=== PATIENT | female | born 2000 | race Asian ===

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

== ENCOUNTER 2018-07-22 21:36 | Emergency (ER) | payer OTHER ==
[2018-07-22] MEDS ORDERED: ONDANSETRON 4 MG/2 ML VIAL IVP STA (22:15)
[2018-07-22] MEDS ORDERED: SODIUM CHLORIDE 0.9% 1,000 ML IV STA (22:15)
--- NOTE | 2018-07-22 22:20 | ED Physician Documentation ---
PD HPI NVD - Stated complaint Stated Complaint: [id number] - Chief complaint Chief Complaint: Abd Pain - History obtained from History obtained from: Patient, Family - History of Present Illness Timing - onset: How many days ago (2) Timing - duration: Days (2) Timing - details: Gradual onset Pain level max: 4 Pain level now: 3 Associated symptoms: Abdominal pain (crampy, diffuse). No: Fever, Chest pain, Hematemesis, Melena, Hematochezia, Dizzy, Weight loss, Dysuria, Hematuria, Vaginal bleeding, Vaginal dc, Testicular pain Contributing factors: Other (on lithium). No: Sick contact, Bad food, Travel, Recent antibiotics, Alcohol use, Anticoagulated, Diabetes Improved by: Vomiting Worsened by: Eating Similar symptoms before: Has not had sx before Recently seen: Not recently seen Review of Systems Ten Systems: 10 systems reviewed and negative Constitutional: denies: Fever, Chills Ears: denies: Ear pain Nose: denies: Rhinorrhea / runny nose, Congestion Cardiac: denies: Chest pain / pressure, Palpitations GI: reports: Vomiting. 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 : None HEENT: None Psych: Anxiety, Bipolar disorder Musculoskeletal: None Derm: None - Past Surgical History Past Surgical History: No - Present Medications Home Medications: Ambulatory Orders Medication Instructions Recorded Confirmed SUMAtriptan [Imitrex] 25 mg PO BID PRN #10 tablet 03/21/15 09/17/15 Ibuprofen 400 mg PO TID #20 tablet 09/17/15 Loratadine [Claritin] 10 mg PO DAILY 09/17/15 09/17/15 Norgestimate-Ethinyl Estradiol 1 tab PO DAILY 09/17/15 09/17/15 [Ortho Tri-Cyclen 28 Tablet] raNITIdine [Zantac] 150 mg PO 09/17/15 Ondansetron Odt [Zofran] 4 mg TL Q6H PRN #10 tablet 07/23/18 - Allergies Allergies/Adverse Reactions: Allergies Allergy/AdvReac Type Severity Reaction Status Date / Time No Known Drug Allergies Allergy Verified 07/22/18 21:44 - Social History Does the pt smoke?: Yes Smoking Status: Current every day smoker Does the pt drink ETOH?: No Does the pt have substance abuse?: No - Immunizations Immunizations are current?: Yes - POLST Patient has POLST: No PD ED PE NORMAL - Vitals Vital signs reviewed: Yes - General General: Alert and oriented X 3, No acute distress, Well developed/nourished - HEENT HEENT: PERRL, Moist mucous membranes - Neck Neck: Supple, no meningeal sign - Cardiac Cardiac: RRR, Strong equal pulses - Respiratory Respiratory: No respiratory distress, Clear bilaterally - Abdomen Abdomen: Normal bowel sounds, Soft, Non tender, Non distended - Back Back: No CVA TTP, No spinal TTP - Derm Derm: Warm and dry - Extremities Extremities: No edema - Neuro Neuro: Alert and oriented X 3 - Psych Psych: Normal mood, Normal affect Results - Vitals Vitals: Vital Signs - 24 hr 07/22/18 07/22/18 07/23/18 21:42 23:10 01:00 Temperature 36.7 C 36.4 C L Heart Rate 98 85 79 Respiratory 18 16 17 Rate Blood Pressure 126/87 H 114/74 O2 Saturation 98 100 100 Oxygen O2 Source Room air - Labs Labs: Laboratory Tests 07/22/18 07/22/18 07/22/18 22:30 22:30 22:30 WBC 7.4 RBC 4.14 L Hgb 12.5 Hct 36.1 L MCV 87.3 MCH 30.3 MCHC 34.7 RDW 14.0 Plt Count 345 MPV 7.1 L Neut # (Auto) 4.9 Lymph # (Auto) 1.9 [place] # (Auto) 0.4 Eos # (Auto) 0.1 Baso # (Auto) 0.1 Absolute Nucleated RBC 0.00 Nucleated RBC % 0.0 Sodium 135 Potassium 4.0 Chloride 98 L Carbon Dioxide 28 Anion Gap 9.0 BUN 16 Creatinine 0.6 Estimated GFR (MDRD) 127 Glucose 89 Calcium 9.8 Total Bilirubin 0.9 AST 27 ALT 22 Alkaline Phosphatase 63 Total Protein 8.4 H Albumin 4.7 Globulin 3.7 Albumin/Globulin Ratio 1.3 Lipase 27 HCG, Quant < 0.60 Urine Color Urine Clarity Urine pH Ur Specific [place] Urine Protein Urine Glucose (UA) Urine Ketones Urine Occult Blood Urine Nitrite Urine Bilirubin Urine Urobilinogen Ur Leukocyte Esterase Ur Microscopic Review Urine Culture Comments Last Dose Date Last Dose Time [place] 07/22/18 07/22/18 22:44 23:55 WBC RBC Hgb Hct MCV MCH MCHC RDW Plt Count MPV Neut # (Auto) Lymph # (Auto) [place] # (Auto) Eos # (Auto) Baso # (Auto) Absolute Nucleated RBC Nucleated RBC % Sodium Potassium Chloride Carbon Dioxide Anion Gap BUN Creatinine Estimated GFR (MDRD) Glucose Calcium Total Bilirubin AST ALT Alkaline Phosphatase Total Protein Albumin Globulin Albumin/Globulin Ratio Lipase HCG, Quant Urine Color YELLOW Urine Clarity CLEAR Urine pH 6.0 Ur Specific [place] >=1.030 H Urine Protein NEGATIVE Urine Glucose (UA) NEGATIVE Urine Ketones 40 H Urine Occult Blood NEGATIVE Urine Nitrite NEGATIVE Urine Bilirubin NEGATIVE Urine Urobilinogen 0.2 (NORMAL) Ur Leukocyte Esterase NEGATIVE Ur Microscopic Review NOT INDICATED Urine Culture Comments NOT INDICATED Last Dose Date UNKNOWN Last Dose Time UNKNOWN [place] 0.09 PD MEDICAL DECISION MAKING - ED course Complexity details: reviewed results, re-evaluated patient, considered dif ferential, d/w patient ED course: Patient is very well-appearing, nontoxic. Vomiting resolved with Zofran. States that she feels "1000% better". Tolerating p.o. without difficulty. Unclear etiology. Will follow up with her doctor for further evaluation and care. Abdomen is soft, nontender nondistended on serial exam. Patient counseled regarding signs and symptoms for which I believe and urgent re- evaluation would be necessary. Patient with good understanding of and agreement to plan and is comfortable going home at this time This document was made in part using voice recognition software. While efforts are made to proofread this document, sound alike and grammatical errors may occur. Departure - Departure Disposition: 01 Home, Self Care Clinical Impression: Vomiting Qualifiers: Vomiting type: unspecified Vomiting Intractability: non-intractable Nausea presence: with nausea Qualified Code(s): R11.2 - Nausea with vomiting, unspecified Condition: Good Instructions: ED Nausea Vomiting Follow-Up: Kathy Mendez MD [Primary Care Provider] - Within 1 week Prescriptions: Ondansetron Odt [Zofran] 4 mg TL Q6H PRN #10 tablet PRN Reason: Nausea / Vomiting Comments: Drink plenty of fluids and rest. This should improve over the next few days. Follow-up with your doctor for further evaluation and care. You have no significant lab abnormalities at this time Discharge Date/Time: 07/23/18 00:50
[2018-07-22 22:46] LABS: BASOPHILS # (AUTO) 0.1 10^3/uL (0.0-0.1); BASOPHILS % (AUTO) 0.9 %; EOSINOPHILS # (AUTO) 0.1 10^3/uL (0.0-0.7); HGB - HEMOGLOBIN 12.5 g/dL (12.0-16.0); LYMPHOCYTES # (AUTO) 1.9 10^3/uL (1.5-3.5); MEAN CORPUSCULAR HEMOGLOBIN 30.3 pg (27.0-31.0); MEAN CORPUSCULAR HGB CONC 34.7 g/dL (32.0-36.0); MEAN CORPUSCULAR VOLUME 87.3 fL (81.0-99.0); MEAN PLATELET VOLUME 7.1 fL (7.9-10.8); MONOCYTES # (AUTO) 0.4 10^3/uL (0.0-1.0); MONOCYTES % (AUTO) 5.7 %; NEUTROPHILS # (AUTO) 4.9 10^3/uL (1.5-6.6); NEUTROPHILS % (AUTO) 66.4 %; PLT - PLATELET COUNT 345 10^3/uL (130-450); RED BLOOD COUNT 4.14 10^6/uL (4.20-5.40); WHITE BLOOD COUNT 7.4 x10^3/uL (4.8-10.8)
[2018-07-22 23:10] LABS: ALBUMIN 4.7 g/dL (3.2-5.5); ALBUMIN/GLOBULIN RATIO 1.3 (1.0-2.2); BILIRUBIN,TOTAL 0.9 mg/dL (0.2-1.0); CALCIUM 9.8 mg/dL (8.5-10.3); CREATININE 0.6 mg/dL (0.4-1.0); TOTAL PROTEIN 8.4 g/dL (6.7-8.2)
[2018-07-22 23:11] VITALS: BP 114/74
[2018-07-22 23:21] LABS: LITHIUM 0.09 mmol/L
[2018-07-23 00:16] LABS: BILIRUBIN,URINE NEGATIVE (NEGATIVE); GLUCOSE, URINE (UA) NEGATIVE (NEGATIVE); KETONES,URINE (UA) 40 mg/dL (NEGATIVE); LEUKOCYTE ESTERASE, URINE NEGATIVE (NEGATIVE); NITRITE,URINE NEGATIVE (NEGATIVE); OCCULT BLOOD,URINE NEGATIVE (NEGATIVE); PROTEIN,URINE NEGATIVE (NEGATIVE); UROBILINOGEN,URINE 0.2 (NORMAL) E.U./dL (NORMAL)
[2018-07-23 00:20] LABS: CLARITY,URINE CLEAR (CLEAR)
== END 2018-07-23 00:50 | disposition home or self-care (01) ==
LOC: ED 21:36
DX: R11.2 Nausea with vomiting, unspecified (principal); F17.200 Nicotine dependence, unspecified, uncomplicated
CPT/HCPCS: 36415; 80053; 80178; 81001; 81003; 81025; 83690; 84702; 84703; 85025; 87086; 96361; 96374; 99283; 99284

== ENCOUNTER 2018-09-15 11:19 | Emergency (ER) | payer OTHER ==
--- NOTE | 2018-09-15 12:04 | ED Physician Documentation ---
PD HPI NVD - Stated complaint Stated Complaint: VOMITING - Chief complaint Chief Complaint: Abd Pain - History obtained from History obtained from: Patient, Family - History of Present Illness Timing - onset: How many weeks ago (1) Timing - duration: Weeks (1) Timing - details: Gradual onset, Still present, Waxing and waning Associated symptoms: No: Fever, Abdominal pain Contributing factors: No: Sick contact, Bad food, Recent antibiotics Improved by: Vomiting Similar symptoms before: No diagnosis Recently seen: Not recently seen - Additonal information Additional information: 18-year-old female has developed nausea and vomiting over the past week and she has run out of her Zofran that she had from the prior visit to the emergency department. She has had an episode of this similar in June at that time she was treated in the emergency department with some IV hydration and Zofran. She states the Zofran has helped somewhat with nausea but has not been totally effective. She denies use of cannabis. The patient's mother indicates that she has had repeated episodes of vomiting in a cyclical fashion. Review of Systems Constitutional: denies: Fever Eyes: denies: Decreased vision Ears: denies: Ear pain Nose: denies: Congestion Throat: denies: Sore throat Cardiac: denies: Chest pain / pressure, Palpitations Respiratory: denies: Dyspnea, Cough GI: reports: Nausea, Vomiting. 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 : None HEENT: None Psych: Anxiety, Bipolar disorder Musculoskeletal: None Derm: None - Past Surgical History Past Surgical History: No - Present Medications Home Medications: Ambulatory Orders Medication Instructions Recorded Confirmed Promethazine [Phenergan] 25 mg PO Q6H PRN #10 tab 09/15/18 QUEtiapine [SEROquel] 25 mg PO QPM 09/15/18 09/15/18 - Allergies Allergies/Adverse Reactions: Allergies Allergy/AdvReac Type Severity Reaction Status Date / Time No Known Drug Allergies Allergy Verified 09/15/18 11:38 - Social History Does the pt smoke?: Yes Smoking Status: Current every day smoker Does the pt drink ETOH?: No Does the pt have substance abuse?: No - Immunizations Immunizations are current?: Yes - POLST Patient has POLST: No PD ED PE NORMAL - Vitals Vital signs reviewed: Yes (normal ) - General General: Alert and oriented X 3, No acute distress, Well developed/nourished - HEENT HEENT: Atraumatic, PERRL, EOMI, Ears normal, Other (dry mucous membranes mild ) - Neck Neck: Supple, no meningeal sign, No bony TTP - Cardiac Cardiac: RRR, No murmur - Respiratory Respiratory: No respiratory distress, Clear bilaterally - Abdomen Abdomen: Soft, Non tender - Back Back: No CVA TTP, No spinal TTP - Derm Derm: Normal color, Warm and dry, No rash - Extremities Extremities: No deformity, No edema - Neuro Neuro: Alert and oriented X 3, rubber trimmer 2-12 intact, No motor deficit, No sensory deficit, Normal speech Eye Opening: Spontaneous Motor: Obeys Commands Verbal: Oriented GCS Score: 15 - Psych Psych: Normal mood, Normal affect Results - Vitals Vitals: Vital Signs - 24 hr 09/15/18 09/15/18 09/15/18 11:25 11:50 13:49 Temperature 36.1 C L Heart Rate 81 78 Respiratory 16 18 18 Rate Blood Pressure 115/78 118/67 O2 Saturation 97 99 Oxygen O2 Source Room air - Labs Labs: Laboratory Tests 09/15/18 09/15/18 09/15/18 12:14 12:14 13:28 WBC 6.0 RBC 4.33 Hgb 12.6 Hct 36.8 L MCV 85.0 MCH 29.1 MCHC 34.2 RDW 13.6 Plt Count 410 MPV 7.0 L Neut # (Auto) 4.4 Lymph # (Auto) 1.1 L [place] # (Auto) 0.3 Eos # (Auto) 0.1 Baso # (Auto) 0.1 Absolute Nucleated RBC 0.00 Nucleated RBC % 0.0 Sodium 138 Potassium 3.7 Chloride 101 Carbon Dioxide 26 Anion Gap 11.0 BUN 16 Creatinine 0.7 Estimated GFR (MDRD) 107 Glucose 91 Calcium 9.4 Total Bilirubin 0.7 AST 25 ALT 20 Alkaline Phosphatase 56 Total Protein 7.5 Albumin 4.5 Globulin 3.0 Albumin/Globulin Ratio 1.5 Lipase 26 Urine Color Urine Clarity Urine pH Ur Specific [place] Urine Protein Urine Glucose (UA) Urine Ketones Urine Occult Blood Urine Nitrite Urine Bilirubin Urine Urobilinogen Ur Leukocyte Esterase Urine RBC Urine WBC Ur Squamous Epith Cells Urine Bacteria Urine Mucus Ur Microscopic Review Urine Culture Comments Urine HCG, Qual Urine Opiates Screen NEGATIVE Ur Oxycodone Screen NEGATIVE Urine Methadone Screen NEGATIVE Ur Propoxyphene Screen NEGATIVE Ur Barbiturates Screen NEGATIVE Ur Tricyclics Screen POSITIVE H Ur Phencyclidine Scrn NEGATIVE Ur Amphetamine Screen NEGATIVE U Methamphetamines Scrn NEGATIVE U Benzodiazepines Scrn NEGATIVE Urine Cocaine Screen NEGATIVE U Cannabinoids Screen NEGATIVE 09/15/18 13:28 WBC RBC Hgb Hct MCV MCH MCHC RDW Plt Count MPV Neut # (Auto) Lymph # (Auto) [place] # (Auto) Eos # (Auto) Baso # (Auto) Absolute Nucleated RBC Nucleated RBC % Sodium Potassium Chloride Carbon Dioxide Anion Gap BUN Creatinine Estimated GFR (MDRD) Glucose Calcium Total Bilirubin AST ALT Alkaline Phosphatase Total Protein Albumin Globulin Albumin/Globulin Ratio Lipase Urine Color YELLOW Urine Clarity HAZY Urine pH 6.5 Ur Specific [place] 1.020 Urine Protein TRACE Urine Glucose (UA) NEGATIVE Urine Ketones 40 H Urine Occult Blood NEGATIVE Urine Nitrite NEGATIVE Urine Bilirubin NEGATIVE Urine Urobilinogen 1 (NORMAL) Ur Leukocyte Esterase SMALL H Urine RBC None Seen Urine WBC 6-10 H Ur Squamous Epith Cells MANY Squamous H Urine Bacteria Rare Urine Mucus Marked Strands Ur Microscopic Review INDICATED Urine Culture Comments NOT INDICATED Urine HCG, Qual NEGATIVE Urine Opiates Screen Ur Oxycodone Screen Urine Methadone Screen Ur Propoxyphene Screen Ur Barbiturates Screen Ur Tricyclics Screen Ur Phencyclidine Scrn Ur Amphetamine Screen U Methamphetamines Scrn U Benzodiazepines Scrn Urine Cocaine Screen U Cannabinoids Screen Procedures - IVC sono (time) 1158 Bedside IVC sono: IVC measures (cm) (1.00), IVC collapsed c insp (cm) (complete), Dehydration (est 1 liter deficit) PD MEDICAL DECISION MAKING - ED course Complexity details: considered differential, d/w patient, d/w family ED course: 18-year-old female with acute nausea and vomiting has mild dehydration on interrogation the inferior vena cava and she is administered saline. She is administered Zofran as well. She denies any use of cannabis and her screen is negative today. Departure - Departure Disposition: 01 Home, Self Care Clinical Impression: Vomiting Qualifiers: Vomiting type: cyclical vomiting Vomiting Intractability: non-intractable Nausea presence: with nausea Qualified Code(s): G43.A0 - Cyclical vomiting, not intractable Instructions: ED Diet Vomiting Diarrhea Follow-Up: Kathy Mendez MD [Primary Care Provider] - Prescriptions: Promethazine [Phenergan] 25 mg PO Q6H PRN #10 tab PRN Reason: Nausea / Vomiting
[2018-09-15] MEDS ORDERED: ONDANSETRON 4 MG/2 ML VIAL IVP STA (12:05)
[2018-09-15] MEDS ORDERED: SODIUM CHLORIDE 0.9% 1,000 ML IV ONE (12:05)
[2018-09-15 12:22] LABS: BASOPHILS # (AUTO) 0.1 10^3/uL (0.0-0.1); BASOPHILS % (AUTO) 1.1 %; EOSINOPHILS # (AUTO) 0.1 10^3/uL (0.0-0.7); HGB - HEMOGLOBIN 12.6 g/dL (12.0-16.0); LYMPHOCYTES # (AUTO) 1.1 10^3/uL (1.5-3.5); LYMPHOCYTES % (AUTO) 18.6 %; MEAN CORPUSCULAR HEMOGLOBIN 29.1 pg (27.0-31.0); MEAN CORPUSCULAR HGB CONC 34.2 g/dL (32.0-36.0); MONOCYTES # (AUTO) 0.3 10^3/uL (0.0-1.0); MONOCYTES % (AUTO) 5.4 %; NEUTROPHILS # (AUTO) 4.4 10^3/uL (1.5-6.6); NEUTROPHILS % (AUTO) 73.9 %; PLT - PLATELET COUNT 410 10^3/uL (130-450); RED BLOOD COUNT 4.33 10^6/uL (4.20-5.40); RED CELL DISTRIBUTION WIDTH 13.6 % (12.0-15.0)
[2018-09-15 12:37] LABS: ALBUMIN 4.5 g/dL (3.2-5.5); ALBUMIN/GLOBULIN RATIO 1.5 (1.0-2.2); BILIRUBIN,TOTAL 0.7 mg/dL (0.2-1.0); CALCIUM 9.4 mg/dL (8.5-10.3); CREATININE 0.7 mg/dL (0.4-1.0); TOTAL PROTEIN 7.5 g/dL (6.7-8.2)
[2018-09-15 13:36] LABS: MUDS CUTOFF CONCENTRATIONS CUTOFF CONC BELOW:
[2018-09-15 13:39] LABS: GLUCOSE, URINE (UA) NEGATIVE (NEGATIVE); KETONES,URINE (UA) 40 mg/dL (NEGATIVE); LEUKOCYTE ESTERASE, URINE SMALL (NEGATIVE); NITRITE,URINE NEGATIVE (NEGATIVE); OCCULT BLOOD,URINE NEGATIVE (NEGATIVE); PH,URINE 6.5 PH (5.0-7.5); PROTEIN,URINE TRACE mg/dL (NEGATIVE); UROBILINOGEN,URINE 1 (NORMAL) E.U./dL (NORMAL)
[2018-09-15 13:42] LABS: BILIRUBIN,URINE NEGATIVE (NEGATIVE); CLARITY,URINE HAZY (CLEAR); HCG UR QUAL NEGATIVE; ICTOTEST,URINE NEGATIVE
[2018-09-15 13:48] LABS: BACTERIA,URINE Rare /HPF (None Seen); MUCUS,URINE Marked Strands; RBC,URINE None Seen /HPF (0-5); SQUAMOUS EPITHELIAL CELL,UR MANY Squamous (<= Few)
[2018-09-15 13:49] LABS: AMPHETAMINE SCREEN,URINE NEGATIVE (NEGATIVE); BENZODIAZEPINES SCREEN, URINE NEGATIVE (NEGATIVE); COCAINE SCREEN URINE NEGATIVE (NEGATIVE); METHADONE SCREEN, URINE NEGATIVE (NEGATIVE); METHAMPHETAMINES SCREEN, URINE NEGATIVE (NEGATIVE); OPIATE SCREEN, URINE NEGATIVE (NEGATIVE); OXYCODONE SCREEN, URINE NEGATIVE (NEGATIVE); PROPOXYPHENE SCREEN, URINE NEGATIVE (NEGATIVE); TRICYCLIC ANTIDEPRESSANT,URINE POSITIVE (NEGATIVE)
[2018-09-15] MEDS ORDERED: PROMETHAZINE INJ 25 MG in SODIUM CHLORIDE 0.9% 50 ML IV STA (13:56)
[2018-09-15 14:33] VITALS: BP 117/67
== END 2018-09-15 14:33 | disposition home or self-care (01) ==
LOC: ED 11:19
DX: G43.A0 Cyclical vomiting, in migraine, not intractable (principal); F17.200 Nicotine dependence, unspecified, uncomplicated
CPT/HCPCS: 36415; 80053; 80306; 81001; 81003; 81025; 83690; 85025; 87086; 99283

== ENCOUNTER 2018-09-15 20:36 | Emergency (ER) | payer OTHER ==
[2018-09-15 21:09] LABS: BASOPHILS # (AUTO) 0.1 10^3/uL (0.0-0.1); BASOPHILS % (AUTO) 1.1 %; EOSINOPHILS % (AUTO) 0.1 %; LYMPHOCYTES # (AUTO) 1.4 10^3/uL (1.5-3.5); LYMPHOCYTES % (AUTO) 19.4 %; MEAN CORPUSCULAR HEMOGLOBIN 30.7 pg (27.0-31.0); MEAN CORPUSCULAR HGB CONC 35.9 g/dL (32.0-36.0); MEAN CORPUSCULAR VOLUME 85.6 fL (81.0-99.0); MEAN PLATELET VOLUME 6.8 fL (7.9-10.8); MONOCYTES # (AUTO) 0.4 10^3/uL (0.0-1.0); MONOCYTES % (AUTO) 5.3 %; NEUTROPHILS # (AUTO) 5.4 10^3/uL (1.5-6.6); NEUTROPHILS % (AUTO) 74.1 %; PLT - PLATELET COUNT 397 10^3/uL (130-450); RED BLOOD COUNT 3.91 10^6/uL (4.20-5.40); RED CELL DISTRIBUTION WIDTH 13.4 % (12.0-15.0); WHITE BLOOD COUNT 7.3 x10^3/uL (4.8-10.8)
[2018-09-15 21:23] LABS: ALBUMIN 4.3 g/dL (3.2-5.5); ALBUMIN/GLOBULIN RATIO 1.5 (1.0-2.2); BILIRUBIN,TOTAL 0.6 mg/dL (0.2-1.0); CALCIUM 8.8 mg/dL (8.5-10.3); CREATININE 0.6 mg/dL (0.4-1.0); TOTAL PROTEIN 7.2 g/dL (6.7-8.2)
[2018-09-15] MEDS ORDERED: MAG HYDROX/AL HYDROX/SIMETH 30 ML UDC PO STA (22:11)
[2018-09-15] MEDS ORDERED: SUCRALFATE 1 GM/10 ML UDC PO STA (22:11)
[2018-09-15] MEDS ORDERED: LIDOCAINE VISCOUS 2% 15 ML UDC MM STA (22:11)
[2018-09-15] MEDS ORDERED: FAMOTIDINE 20 MG TABLET PO STA (22:11)
--- NOTE | 2018-09-15 22:17 | ED Physician Documentation ---
History of Present Illness - Stated complaint Stated Complaint: CHEST PX - Chief complaint Chief Complaint: Cardiac - History obtained from History obtained from: Patient, Family - History of Present Illness Timing: Yesterday Pain level max: 8 Pain level now: 8 Improved by: nothing Worsened by: eating - Additonal information Additional information: 18-year-old female presents to the emergency department with vomiting this morning stating that she had chest pain last night and today. Worse with eating and drinking. Nothing makes it better. 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 HEENT: None Psych: Anxiety, Bipolar disorder Musculoskeletal: None Derm: None - Past Surgical History Past Surgical History: No - Present Medications Home Medications: Ambulatory Orders Medication Instructions Recorded Confirmed Famotidine [Pepcid] 20 mg PO BID #60 tablet 09/15/18 Promethazine [Phenergan] 25 mg PO Q6H PRN #10 tab 09/15/18 QUEtiapine [SEROquel] 25 mg PO QPM 09/15/18 09/15/18 Sucralfate [Carafate] 1 gm PO ACHS #60 tablet 09/15/18 - Allergies Allergies/Adverse Reactions: Allergies Allergy/AdvReac Type Severity Reaction Status Date / Time No Known Drug Allergies Allergy Verified 09/15/18 20:56 - Social History Does the pt smoke?: Yes Smoking Status: Current every day smoker Does the pt drink ETOH?: No Does the pt have substance abuse?: No - Immunizations Immunizations are current?: Yes - POLST Patient has POLST: No PD ED PE NORMAL - Vitals Vital signs reviewed: Yes - General General: Alert and oriented X 3, No acute distress, Well developed/nourished - HEENT HEENT: PERRL, Moist mucous membranes - Neck Neck: Supple, no meningeal sign - Cardiac Cardiac: RRR, No murmur, Strong equal pulses - Respiratory Respiratory: No respiratory distress, Clear bilaterally - Abdomen Abdomen: Soft, Non tender, Non distended - Derm Derm: Warm and dry, No rash - Extremities Extremities: No edema, No calf tenderness / cord - Neuro Neuro: Alert and oriented X 3 - Psych Psych: Normal mood, Normal affect Results - Vitals Vitals: Vital Signs - 24 hr 09/15/18 09/15/18 09/15/18 20:53 22:00 22:30 Temperature 36.9 C 36.8 C Heart Rate 115 H 79 73 Respiratory 19 27 H 16 Rate Blood Pressure 127/79 114/71 111/62 O2 Saturation 100 98 98 09/15/18 22:53 Temperature 36.5 C Heart Rate 84 Respiratory 18 Rate Blood Pressure 105/59 L O2 Saturation 98 Oxygen O2 Source Room air - EKG (time done) 2058 Rate: Rate (enter#) (111) Rhythm: Sinus tachycardia [place]: Normal Intervals: Normal [place] QRS: Normal Ischemia: Normal ST segments - Labs Labs: Laboratory Tests 09/15/18 09/15/18 09/15/18 21:04 21:04 21:04 WBC 7.3 RBC 3.91 L Hgb 12.0 Hct 33.5 L MCV 85.6 MCH 30.7 MCHC 35.9 RDW 13.4 Plt Count 397 MPV 6.8 L Neut # (Auto) 5.4 Lymph # (Auto) 1.4 L [place] # (Auto) 0.4 Eos # (Auto) 0.0 Baso # (Auto) 0.1 Absolute Nucleated RBC 0.00 Nucleated RBC % 0.0 Sodium 137 Potassium 3.5 Chloride 105 Carbon Dioxide 23 Anion Gap 9.0 BUN 13 Creatinine 0.6 Estimated GFR (MDRD) 127 Glucose 107 H Calcium 8.8 Total Bilirubin 0.6 AST 28 ALT 21 Alkaline Phosphatase 49 Troponin I < 0.04 Total Protein 7.2 Albumin 4.3 Globulin 2.9 Albumin/Globulin Ratio 1.5 Lipase 28 Influenza A (Rapid) Influenza B (Rapid) 09/15/18 22:10 WBC RBC Hgb Hct MCV MCH MCHC RDW Plt Count MPV Neut # (Auto) Lymph # (Auto) [place] # (Auto) Eos # (Auto) Baso # (Auto) Absolute Nucleated RBC Nucleated RBC % Sodium Potassium Chloride Carbon Dioxide Anion Gap BUN Creatinine Estimated GFR (MDRD) Glucose Calcium Total Bilirubin AST ALT Alkaline Phosphatase Troponin I Total Protein Albumin Globulin Albumin/Globulin Ratio Lipase Influenza A (Rapid) Negative Influenza B (Rapid) Negative - Rads (name of study) cxr Radiology: Prelim report reviewed, EMP read contemporaneously, See rad report (No acute disease) PD MEDICAL DECISION MAKING - ED course Complexity details: reviewed results, re-evaluated patient, considered differential (No ST elevation [place], no aortic dissection, no PE, no tension pneumothorax, no aortic aneurysm), d/w patient, d/w family ED course: 18-year-old female with substernal chest pain since yesterday. Normal EKG. Negative cardiac enzyme. Symptoms resolved with GI cocktail. Likely esophageal irritation from her vomiting. Will follow up with her PCP for further care. No tenderness over the gallbladder. No evidence of cholecystitis. Patient counseled regarding signs and symptoms for which I believe and urgent re- evaluation would be necessary. Patient with good understanding of and agreement to plan and is comfortable going home at this time This document was made in part using voice recognition software. While efforts are made to proofread this document, sound alike and grammatical errors may occur. Departure - Departure Disposition: 01 Home, Self Care Clinical Impression: Esophagitis Condition: Good Instructions: ED GERD Follow-Up: Kathy Mendez MD [Primary Care Provider] - Within 1 week Prescriptions: Famotidine [Pepcid] 20 mg PO BID #60 tablet Sucralfate [Carafate] 1 gm PO ACHS #60 tablet Comments: return if you worsen. Drink plenty of fluids. You should have an endoscopy scheduled by your doctor. Discharge Date/Time: 09/15/18 22:53
[2018-09-15 22:53] VITALS: BP 105/59
--- NOTE | 2018-09-15 22:54 | XRAY Report ---
Reason: chest pain Procedure Date: 09/15/2018 Accession Number: [id number] / [id number] Procedure: XR - Chest 1 View X-Ray CPT Code: 67070 FULL RESULT: EXAM: CHEST RADIOGRAPHY EXAM DATE: 09/15/2018 10:37 PM. CLINICAL HISTORY: Chest pain. COMPARISON: CHEST 2 VIEW PA/LAT 09/17/2015 12:50 PM. TECHNIQUE: 1 view. FINDINGS: Lungs/Pleura: No focal opacities evident. No pleural effusion. No pneumothorax. Mediastinum: Within exam limitations, the cardiomediastinal contour is normal. Other: None. IMPRESSION: Stable negative single view chest. RADIA
== END 2018-09-15 22:53 | disposition home or self-care (01) ==
LOC: ED 20:36
DX: K20.9 Esophagitis, unspecified (principal); G43.A0 Cyclical vomiting, in migraine, not intractable; F17.200 Nicotine dependence, unspecified, uncomplicated
CPT/HCPCS: 36415; 71045; 80053; 80306; 81001; 81025; 83690; 84484; 85025; 87275; 87276; 93005; 96361; 96365; 96375; 99283; 99284; A9270; J7040

== ENCOUNTER 2022-03-28 13:34 | Emergency (ER) | payer OTHER, MEDICAID ==
[2022-03-28 14:00] VITALS: BP 119/58
[2022-03-28 14:18] LABS: BASOPHILS % (AUTO) 0.4 %; EOSINOPHILS % (AUTO) 0.2 %; HCT - HEMATOCRIT 34.2 % (37.0-47.0); HGB - HEMOGLOBIN 11.2 g/dL (12.0-16.0); LYMPHOCYTES # (AUTO) 1.4 10^3/uL (1.5-3.5); LYMPHOCYTES % (AUTO) 16.5 %; MEAN CORPUSCULAR HEMOGLOBIN 29.1 pg (27.0-31.0); MEAN CORPUSCULAR HGB CONC 32.7 g/dL (32.0-36.0); MEAN CORPUSCULAR VOLUME 88.8 fL (81.0-99.0); MEAN PLATELET VOLUME 8.1 fL (7.9-10.8); MONOCYTES # (AUTO) 0.5 10^3/uL (0.0-1.0); MONOCYTES % (AUTO) 5.7 %; NEUTROPHILS # (AUTO) 6.4 10^3/uL (1.5-6.6); NEUTROPHILS % (AUTO) 76.8 %; PLT - PLATELET COUNT 424 10^3/uL (130-450); RED BLOOD COUNT 3.85 10^6/uL (4.20-5.40); RED CELL DISTRIBUTION WIDTH 13.3 % (12.0-15.0); WHITE BLOOD COUNT 8.4 x10^3/uL (4.8-10.8)
[2022-03-28 14:30] LABS: HCG UR QUAL POSITIVE
[2022-03-28 14:33] LABS: ALBUMIN 4.1 g/dL (3.2-5.5); ALBUMIN/GLOBULIN RATIO 1.1 (1.0-2.2); BILIRUBIN,TOTAL 0.2 mg/dL (0.2-1.0); CALCIUM 9.6 mg/dL (8.5-10.3); CREATININE 0.4 mg/dL (0.4-1.0); POTASSIUM 4.1 mmol/L (3.5-5.0); TOTAL PROTEIN 7.9 g/dL (6.7-8.2)
[2022-03-28 15:56] LABS: BILIRUBIN,URINE NEGATIVE (NEGATIVE); CLARITY,URINE HAZY (CLEAR); GLUCOSE, URINE (UA) NEGATIVE (NEGATIVE); KETONES,URINE (UA) NEGATIVE (NEGATIVE); LEUKOCYTE ESTERASE, URINE NEGATIVE (NEGATIVE); NITRITE,URINE NEGATIVE (NEGATIVE); OCCULT BLOOD,URINE NEGATIVE (NEGATIVE); PROTEIN,URINE NEGATIVE (NEGATIVE); UROBILINOGEN,URINE 0.2 (NORMAL) E.U./dL (NORMAL)
--- NOTE | 2022-03-28 16:06 | Ultrasound Report ---
PROCEDURE: OB First Trimester INDICATIONS: pain early OUTSIDE/PRIOR DATING DATA: Last menstrual period (LMP): 02/01/2022. LMP-based estimated date of delivery (COREY): 11/08/2022. First dating scan (date and location): 03/28/2022. Estimated date of delivery (COREY) from first dating scan: 10/13/2022. TECHNIQUE: Real-time scanning was performed of the fetus and maternal pelvic organs, with image documentation. COMPARISON: None FINDINGS: Single live intrauterine with gestational sac containing yolk sac and pole. Atlas-rum p length measures 4.75 cm consistent with an 11 week 4 day gestation. heart rate 169 bpm. Subchorionic hemorrhage measures at 2.1 x 0.8 x 4.9 cm. Both ovaries unremarkable IMPRESSION: Single live intrauterine consistent with an 11 week 4 day gestation. Perigestational bleed measures 2.1 x 4.9 cm Reviewed by: Heber Boudreaux MD on 03/28/2022 3:05 PM TREY Approved by: Heber Boudreaux MD on 03/28/2022 3:05 PM [id number] Station ID: [id number]
[2022-03-28 16:12] LABS: WBC,URINE 0-3 /HPF (0-5)
[2022-03-28 16:13] LABS: BACTERIA,URINE Many /HPF (None Seen); RBC,URINE None Seen /HPF (0-5); SQUAMOUS EPITHELIAL CELL,UR MANY Squamous (<= Few)
--- NOTE | 2022-03-28 16:20 | ED Physician Documentation ---
PD HPI FEMALE - Stated complaint Stated Complaint: ABD PAIN/7WKS PREG - Chief complaint Chief Complaint: Abd Pain - History obtained from History obtained from: Patient - Additional information Additional information: Patient is a 22-year-old female, G1, P0 presenting for evaluation of lower abdominal cramping and vaginal spotting yesterday. She has also had some cramping today that has improved since being in the emergency department. Her last menstrual period was February 01. She denies dizziness, chest pain, difficulty breathing, vomiting. She has not had any further vaginal bleeding today and denies vaginal discharge or concerns for sexually transmitted infections. Review of Systems Constitutional: denies: Fever Nose: denies: Congestion Throat: denies: Sore throat Cardiac: denies: Chest pain / pressure Respiratory: denies: Dyspnea GI: reports: Abdominal Pain. denies: Vomiting : reports: Vaginal bleeding. 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 : None HEENT: None Psych: Anxiety, Bipolar disorder Musculoskeletal: None Derm: None - Past Surgical History Past Surgical History: No - Present Medications Home Medications: Ambulatory Orders Medication Instructions Recorded Confirmed Buprenorphine HCl/Naloxone HCl 1.5 film SL DAILY 03/28/22 03/28/22 [Buprenorphine-Nalox 8-2Mg Film] - Allergies Allergies/Adverse Reactions: Allergies Allergy/AdvReac Type Severity Reaction Status Date / Time No Known Drug Allergies Allergy Verified 03/28/22 14:00 - Social History Does the pt smoke?: Yes Smoking Status: Current every day smoker Does the pt drink ETOH?: No Does the pt have substance abuse?: No - Immunizations Immunizations are current?: Yes - POLST Patient has POLST: No PD ED PE NORMAL - General General: Alert and oriented X 3, No acute distress, Well developed/nourished - HEENT HEENT: Atraumatic, Moist mucous membranes - Neck Neck: Supple, no meningeal sign - Cardiac Cardiac: RRR, Strong equal pulses - Respiratory Respiratory: No respiratory distress, Clear bilaterally - Abdomen Abdomen: Normal bowel sounds, Soft, Non tender, Non distended - Female Female : Deferred - Derm Derm: Warm and dry - Extremities Extremities: No edema - Neuro Neuro: Normal speech Results - Vitals Vitals: Vital Signs - 24 hr 03/28/22 13:57 Temperature 36.6 C Heart Rate 82 Respiratory 16 Rate Blood Pressure 119/58 L O2 Saturation 99 Oxygen O2 Source Room air - Labs Labs: Laboratory Tests 03/28/22 03/28/22 03/28/22 14:04 14:04 14:13 WBC 8.4 RBC 3.85 L Hgb 11.2 L Hct 34.2 L MCV 88.8 MCH 29.1 MCHC 32.7 RDW 13.3 Plt Count 424 MPV 8.1 Neut # (Auto) 6.4 Lymph # (Auto) 1.4 L Iron # (Auto) 0.5 Eos # (Auto) 0.0 Baso # (Auto) 0.0 Absolute Nucleated RBC 0.00 Nucleated RBC % 0.0 Sodium Potassium Chloride Carbon Dioxide Anion Gap BUN Creatinine Estimated GFR (MDRD) Glucose Calcium Total Bilirubin AST ALT Alkaline Phosphatase Total Protein Albumin Globulin Albumin/Globulin Ratio Lipase HCG, Quant Urine Color YELLOW Urine Clarity HAZY Urine pH 6.0 Ur Specific [place] 1.020 Urine Protein NEGATIVE Urine Glucose (UA) NEGATIVE Urine Ketones NEGATIVE Urine Occult Blood NEGATIVE Urine Nitrite NEGATIVE Urine Bilirubin NEGATIVE Urine Urobilinogen 0.2 (NORMAL) Ur Leukocyte Esterase NEGATIVE Urine RBC None Seen Urine WBC 0-3 Ur Squamous Epith Cells MANY Squamous H Urine Bacteria Many H Ur Microscopic Review INDICATED Urine Culture Comments NOT INDICATED Urine HCG, Qual POSITIVE Blood Type 03/28/22 03/28/22 03/28/22 14:13 14:13 14:13 WBC RBC Hgb Hct MCV MCH MCHC RDW Plt Count MPV Neut # (Auto) Lymph # (Auto) Iron # (Auto) Eos # (Auto) Baso # (Auto) Absolute Nucleated RBC Nucleated RBC % Sodium 136 Potassium 4.1 Chloride 102 Carbon Dioxide 26 Anion Gap 8.0 BUN 8 Creatinine 0.4 Estimated GFR (MDRD) 196 Glucose 95 Calcium 9.6 Total Bilirubin 0.2 AST 15 ALT 12 Alkaline Phosphatase 64 Total Protein 7.9 Albumin 4.1 Globulin 3.8 Albumin/Globulin Ratio 1.1 Lipase 25 HCG, Quant 635634.00 Urine Color Urine Clarity Urine pH Ur Specific [place] Urine Protein Urine Glucose (UA) Urine Ketones Urine Occult Blood Urine Nitrite Urine Bilirubin Urine Urobilinogen Ur Leukocyte Esterase Urine RBC Urine WBC Ur Squamous Epith Cells Urine Bacteria Ur Microscopic Review Urine Culture Comments Urine HCG, Qual Blood Type B POSITIVE PD MEDICAL DECISION MAKING - ED course Complexity details: reviewed results, d/w patient ED course: Pt with cramping and spotting yesterday in early , no prior U/S. Workup initiated from triage. U/S shows IUP ~11weeks. LAbs without significant findings.B+. No pain or bleeding here. Pt counseled on need for close follow up with [facility] as well as counseled on concerning symptoms to return for. Departure - Departure Disposition: 01 Home, Self Care Clinical Impression: Abdominal pain affecting Condition: Stable Instructions: ED Miscarriage Poss Comments: You were evaluated for pain and bleeding in early . Your blood type is B+. Your ultrasound shows that everything looks good with your at this time. You are 11 weeks and 4 days along.Bleeding and some cramping can be common in early . However if you have worsening pain or heavier bleeding that may be a sign of a miscarriage. Please make sure to follow-up with your [facility]. Please continue to take your vitamins. If you have worsening symptoms such as dizziness, uncontrolled pain, bleeding through a pad every few hours or any concerns please return to the emergency department. Discharge Date/Time: 03/28/22 16:47
== END 2022-03-28 16:47 | disposition home or self-care (01) ==
LOC: ED 13:34
DX: O26.891 Other specified pregnancy related conditions, first trimester (principal); R10.30 Lower abdominal pain, unspecified; O99.331 Smoking (tobacco) complicating pregnancy, first trimester; F17.200 Nicotine dependence, unspecified, uncomplicated; Z3A.01 Less than 8 weeks gestation of pregnancy
CPT/HCPCS: 36415; 80053; 81001; 81003; 81025; 83690; 84702; 85025; 86900; 86901; 87086; 99282; 99284

== ENCOUNTER 2022-04-02 08:00 | Outpatient (CLI) | payer OTHER, MEDICAID ==
[2022-04-02 15:23] LABS: MUDS CUTOFF CONCENTRATIONS CUTOFF CONC BELOW:
[2022-04-02 15:27] LABS: BILIRUBIN,URINE NEGATIVE (NEGATIVE); GLUCOSE, URINE (UA) NEGATIVE (NEGATIVE); KETONES,URINE (UA) NEGATIVE (NEGATIVE); LEUKOCYTE ESTERASE, URINE NEGATIVE (NEGATIVE); NITRITE,URINE NEGATIVE (NEGATIVE); OCCULT BLOOD,URINE NEGATIVE (NEGATIVE); PH,URINE 6.5 PH (5.0-7.5); PROTEIN,URINE NEGATIVE (NEGATIVE); UROBILINOGEN,URINE 0.2 (NORMAL) E.U./dL (NORMAL)
[2022-04-02 15:30] LABS: CLARITY,URINE HAZY (CLEAR)
[2022-04-02 15:36] LABS: BACTERIA,URINE Many /HPF (None Seen); RBC,URINE 0-5 /HPF (0-5); SQUAMOUS EPITHELIAL CELL,UR MANY Squamous (<= Few); WBC,URINE 0-3 /HPF (0-5)
[2022-04-02 15:37] LABS: AMPHETAMINE SCREEN,URINE NEGATIVE (NEGATIVE); BARBITURATE SCREEN,UR NEGATIVE (NEGATIVE); BENZODIAZEPINES SCREEN, URINE NEGATIVE (NEGATIVE); COCAINE SCREEN URINE NEGATIVE (NEGATIVE); METHADONE SCREEN, URINE NEGATIVE (NEGATIVE); METHAMPHETAMINES SCREEN, URINE NEGATIVE (NEGATIVE); OPIATE SCREEN, URINE NEGATIVE (NEGATIVE); OXYCODONE SCREEN, URINE NEGATIVE (NEGATIVE); PROPOXYPHENE SCREEN, URINE NEGATIVE (NEGATIVE); THC CANNABINOID SCREEN, URINE NEGATIVE (NEGATIVE); TRICYCLIC ANTIDEPRESSANT,URINE NEGATIVE (NEGATIVE)
[2022-04-02 23:05] LABS: CHLAMYDIA TRACHOMATIS DNA NEGATIVE (NEGATIVE); NEISSERIA GONORRHOEAE DNA NEGATIVE (NEGATIVE); TRICHOMONAS VAGINALIS DNA NEGATIVE (NEGATIVE)
== END 2022-04-02 23:59 | disposition home or self-care (01) ==
LOC: LAB.WC 08:00
PROVIDERS: ATTEND Nurse Practitioner
DX: Z36.89 Encounter for other specified antenatal screening (principal)
CPT/HCPCS: 80306; 81001; 87086; 87491; 87591; 87661

== ENCOUNTER 2022-04-08 15:08 | Outpatient (CLI) | payer OTHER, MEDICAID ==
[2022-04-08 15:37] LABS: BASOPHILS % (AUTO) 0.3 %; EOSINOPHILS # (AUTO) 0.1 10^3/uL (0.0-0.7); EOSINOPHILS % (AUTO) 1.5 %; HGB - HEMOGLOBIN 10.8 g/dL (12.0-16.0); LYMPHOCYTES # (AUTO) 1.5 10^3/uL (1.5-3.5); LYMPHOCYTES % (AUTO) 21.5 %; MEAN CORPUSCULAR HEMOGLOBIN 29.4 pg (27.0-31.0); MEAN CORPUSCULAR HGB CONC 32.7 g/dL (32.0-36.0); MEAN CORPUSCULAR VOLUME 89.9 fL (81.0-99.0); MEAN PLATELET VOLUME 8.5 fL (7.9-10.8); MONOCYTES # (AUTO) 0.5 10^3/uL (0.0-1.0); MONOCYTES % (AUTO) 6.5 %; NEUTROPHILS # (AUTO) 4.8 10^3/uL (1.5-6.6); NEUTROPHILS % (AUTO) 69.9 %; PLT - PLATELET COUNT 312 10^3/uL (130-450); RED BLOOD COUNT 3.67 10^6/uL (4.20-5.40); RED CELL DISTRIBUTION WIDTH 13.9 % (12.0-15.0); WHITE BLOOD COUNT 6.9 x10^3/uL (4.8-10.8)
[2022-04-09 05:10] LABS: HBsAG SCREEN Negative (Negative)
[2022-04-09 06:10] LABS: HCV AB <0.1 s/co ratio (0.0-0.9)
[2022-04-09 07:10] LABS: HIV SCREEN 4TH GENERATION Non Reactive (Non Reactive)
[2022-04-09 08:10] LABS: VARICELLA-ZOSTER AB IGG <135 index (Immune >165)
[2022-04-09 09:09] LABS: RPR Non Reactive (Non Reactive)
== END 2022-04-08 15:09 | disposition home or self-care (01) ==
LOC: LAB 15:08
PROVIDERS: ATTEND Nurse Practitioner
DX: O99.019 Anemia complicating pregnancy, unspecified trimester (principal); D64.9 Anemia, unspecified; Z36.89 Encounter for other specified antenatal screening
CPT/HCPCS: 36415; 82728; 85025; 86592; 86762; 86787; 86803; 86850; 86900; 86901; 87340; 87389

== ENCOUNTER 2022-04-16 14:34 | Outpatient (CLI) | payer OTHER, MEDICAID ==
--- NOTE | 2022-04-16 20:49 | Ultrasound Report ---
PROCEDURE: OB First Trimester INDICATIONS: positive test f/u sc bleed OUTSIDE/PRIOR DATING DATA: Last menstrual period (LMP): 02/01/2022. LMP-based estimated date of delivery (COREY): 11/08/2022. First dating scan (date and location): 03/28/2022. Estimated date of delivery (COREY) from first dating scan: 10/13/2022. The below data below was generated using the ultrasound COREY of 10/13/2022 TECHNIQUE: Real-time scanning was performed of the fetus and maternal pelvic organs, with image documentation. COMPARISON: OB ultrasound 03/28/2022 FINDINGS: Embryo: Intrauterine gestational sac is again seen with variable positioning. Cache rump lengt h is 7.3 cm, compatible with an estimated gestational age of 13 weeks 3 days. Based on initial ultras ound, expected gestational age is 14 weeks 2 days. Previously seen. Gestational sac hemorrhage has re solved. Heart rate: 147 bpm. Measurement variability in dating: +/- 4 weeks by LMP, +/- 7 days by mean sac diameter (use before 6 weeks gestation if crown-rump length not able to be measured), +/- 5 days by crown-rump length (6-12 weeks gestation). Maternal organs: Ovaries are within normal limits. A right corpus luteum cyst is present. IMPRESSION: 1.Single live intrauterine with interval growth. 2.Perigestational sac hemorrhage has resolved. Reviewed by: Reynaldo Pabon MD on 04/16/2022 8:48 PM PDT Approved by: Reynaldo Pabon MD on 04/16/2022 8:48 PM PDT Station ID: [id number]
== END 2022-04-16 14:35 | disposition home or self-care (01) ==
LOC: DI 14:34
PROVIDERS: ATTEND Nurse Practitioner
DX: Z34.02 Encounter for supervision of normal first pregnancy, second trimester (principal); Z3A.14 14 weeks gestation of pregnancy

== ENCOUNTER 2022-04-23 14:50 | Outpatient (CLI) | payer OTHER, MEDICAID ==
[2022-04-24 12:35] LABS: BILIRUBIN,URINE NEGATIVE (NEGATIVE); GLUCOSE, URINE (UA) 100 mg/dL (NEGATIVE); KETONES,URINE (UA) NEGATIVE (NEGATIVE); LEUKOCYTE ESTERASE, URINE NEGATIVE (NEGATIVE); NITRITE,URINE NEGATIVE (NEGATIVE); OCCULT BLOOD,URINE NEGATIVE (NEGATIVE); PROTEIN,URINE NEGATIVE (NEGATIVE); UROBILINOGEN,URINE 0.2 (NORMAL) E.U./dL (NORMAL)
[2022-04-24 12:55] LABS: CLARITY,URINE CLOUDY (CLEAR)
[2022-04-24 12:56] LABS: RBC,URINE 0-5 /HPF (0-5); WBC,URINE 0-3 /HPF (0-5)
[2022-04-24 12:57] LABS: AMORPHOUS SEDIMENT,UR Marked /LPF; BACTERIA,URINE Few /HPF (None Seen); SQUAMOUS EPITHELIAL CELL,UR FEW Squamous (<= Few)
== END 2022-04-23 23:59 | disposition home or self-care (01) ==
LOC: LAB.R 14:50
PROVIDERS: ATTEND Obstetrics & Gynecology
DX: Z34.90 Encounter for supervision of normal pregnancy, unspecified, unspecified trimester (principal); Z36.89 Encounter for other specified antenatal screening
CPT/HCPCS: 81001; 87077; 87086; 87181

== ENCOUNTER 2022-04-29 14:43 | Outpatient (CLI) | payer OTHER, MEDICAID | END 2022-04-29 14:44 | disposition home or self-care (01) | LOC: LAB 14:43 | PROVIDERS: ATTEND Obstetrics & Gynecology | DX: Z34.92 Encounter for supervision of normal pregnancy, unspecified, second trimester (principal) | CPT/HCPCS: 36415 ==

== ENCOUNTER 2022-05-17 20:41 | Emergency (ER) | payer OTHER, MEDICAID ==
[2022-05-17] MEDS ORDERED: SODIUM CHLORIDE 0.9% 1,000 ML IV STA (21:03)
--- NOTE | 2022-05-17 21:09 | ED Physician Documentation ---
PD HPI NVD - Stated complaint Stated Complaint: VOMITING w/ BLOOD - Chief complaint Chief Complaint: Abd Pain - History obtained from History obtained from: Patient - History of Present Illness Timing - onset: How many days ago (2) Timing - details: Intermittant Pain level max: 0 Pain level now: 0 Associated symptoms: Hematemesis. No: Fever, Abdominal pain Worsened by: Eating (worse with PO intake although tolerates most PO) Recently seen: Not recently seen - Additonal information Additional information: patient is approximately 19 weeks and had hyperemesis gravidarum in the first several weeks of although it had seemed to have resolved over past few weeks. She c/o n/v over past two days and tonight she noticed some bright red blood in vomitus, no clots. denies fever, denies pain Review of Systems Constitutional: reports: Reviewed and negative Cardiac: reports: Reviewed and negative Respiratory: reports: Reviewed and negative GI: reports: Nausea, Vomiting, Hematemesis. 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 : None HEENT: None Psych: Depression, Anxiety, Other Musculoskeletal: None Derm: None Other Past Medical History: Recovering Opiate Use - Past Surgical History Past Surgical History: No - Present Medications Home Medications: Ambulatory Orders Medication Instructions Recorded Confirmed Buprenorphine HCl/Naloxone HCl 1.5 film SL DAILY 03/28/22 05/17/22 [Buprenorphine-Nalox 8-2Mg Film] Metoclopramide [Reglan] 5 mg PO DAILY PRN 05/17/22 05/17/22 Ondansetron Odt [Zofran Odt] 4 mg TL Q6H PRN #14 tablet 05/17/22 - Allergies Allergies/Adverse Reactions: Allergies Allergy/AdvReac Type Severity Reaction Status Date / Time No Known Drug Allergies Allergy Verified 05/17/22 20:53 - Social History Does the pt smoke?: No Smoking Status: Never smoker Does the pt drink ETOH?: No Does the pt have substance abuse?: No - Immunizations Immunizations are current?: Yes - POLST Patient has POLST: No PD ED PE NORMAL - Vitals Vital signs reviewed: Yes - General General: Alert and oriented X 3, No acute distress, Well developed/nourished - Cardiac Cardiac: RRR, No murmur - Respiratory Respiratory: No respiratory distress, Clear bilaterally - Abdomen Abdomen: Soft, Non distended, Other (appropriately gravid to EDC) - Back Back: No CVA TTP Results - Vitals Vitals: Oxygen O2 Source Room air - Labs Labs: Laboratory Tests 05/17/22 05/17/22 05/17/22 21:19 21:19 21:19 WBC 9.3 RBC 3.87 L Hgb 11.5 L Hct 33.8 L MCV 87.3 MCH 29.7 MCHC 34.0 RDW 12.9 Plt Count 422 MPV 8.2 Neut # (Auto) 6.6 Lymph # (Auto) 2.0 [place] # (Auto) 0.6 Eos # (Auto) 0.1 Baso # (Auto) 0.0 Absolute Nucleated RBC 0.00 Nucleated RBC % 0.0 Sodium 138 Potassium 4.1 Chloride 101 Carbon Dioxide 24 Anion Gap 13.0 BUN 10 Creatinine 0.5 Estimated GFR (MDRD) 152 Glucose 95 Calcium 9.9 Total Bilirubin 0.3 AST 23 ALT 19 Alkaline Phosphatase 94 Total Protein 8.1 Albumin 4.1 Globulin 4.0 Albumin/Globulin Ratio 1.0 Lipase 22 Urine Color YELLOW Urine Clarity CLEAR Urine pH 6.0 Ur Specific [place] >=1.030 H Urine Protein NEGATIVE Urine Glucose (UA) NEGATIVE Urine Ketones 40 H Urine Occult Blood NEGATIVE Urine Nitrite NEGATIVE Urine Bilirubin NEGATIVE Urine Urobilinogen 0.2 (NORMAL) Ur Leukocyte Esterase NEGATIVE Ur Microscopic Review NOT INDICATED Urine Culture Comments NOT INDICATED PD MEDICAL DECISION MAKING - ED course Complexity details: reviewed results, re-evaluated patient, considered differential, d/w patient Departure - Departure Disposition: 01 Home, Self Care Clinical Impression: Hematemesis Condition: Good Instructions: ED Bleed UGI Stable Follow-Up: Favio Parr MD [Primary Care Provider] - Prescriptions: Ondansetron Odt [Zofran Odt] 4 mg TL Q6H PRN #14 tablet PRN Reason: Nausea / Vomiting Comments: There are no concerning findings on tonight's tests. I suspect your bleeding is due to either gastritis (inflammation of the stomach lining) or broken blood vessels (from the vomiting) at the bottom of the esophagus (called Francoise-Dunlap tears). A prescription for ondansetron (zofran) has been electronically submitted to [facility] pharmacy in [place]. Discharge Date/Time: 05/17/22 22:41
[2022-05-17 21:27] LABS: BASOPHILS % (AUTO) 0.4 %; BILIRUBIN,URINE NEGATIVE (NEGATIVE); EOSINOPHILS # (AUTO) 0.1 10^3/uL (0.0-0.7); EOSINOPHILS % (AUTO) 0.6 %; GLUCOSE, URINE (UA) NEGATIVE (NEGATIVE); HCT - HEMATOCRIT 33.8 % (37.0-47.0); HGB - HEMOGLOBIN 11.5 g/dL (12.0-16.0); KETONES,URINE (UA) 40 mg/dL (NEGATIVE); LEUKOCYTE ESTERASE, URINE NEGATIVE (NEGATIVE); LYMPHOCYTES % (AUTO) 21.3 %; MEAN CORPUSCULAR HEMOGLOBIN 29.7 pg (27.0-31.0); MEAN CORPUSCULAR VOLUME 87.3 fL (81.0-99.0); MEAN PLATELET VOLUME 8.2 fL (7.9-10.8); MONOCYTES # (AUTO) 0.6 10^3/uL (0.0-1.0); MONOCYTES % (AUTO) 6.8 %; NEUTROPHILS # (AUTO) 6.6 10^3/uL (1.5-6.6); NEUTROPHILS % (AUTO) 70.7 %; NITRITE,URINE NEGATIVE (NEGATIVE); OCCULT BLOOD,URINE NEGATIVE (NEGATIVE); PLT - PLATELET COUNT 422 10^3/uL (130-450); PROTEIN,URINE NEGATIVE (NEGATIVE); RED BLOOD COUNT 3.87 10^6/uL (4.20-5.40); RED CELL DISTRIBUTION WIDTH 12.9 % (12.0-15.0); UROBILINOGEN,URINE 0.2 (NORMAL) E.U./dL (NORMAL); WHITE BLOOD COUNT 9.3 x10^3/uL (4.8-10.8)
[2022-05-17 21:28] LABS: CLARITY,URINE CLEAR (CLEAR)
[2022-05-17 21:39] LABS: ALBUMIN 4.1 g/dL (3.2-5.5); BILIRUBIN,TOTAL 0.3 mg/dL (0.2-1.0); CALCIUM 9.9 mg/dL (8.5-10.3); CREATININE 0.5 mg/dL (0.4-1.0); POTASSIUM 4.1 mmol/L (3.5-5.0); TOTAL PROTEIN 8.1 g/dL (6.7-8.2)
[2022-05-17] MEDS ORDERED: ONDANSETRON 4 MG/2 ML VIAL IVP STA (21:46)
[2022-05-17] MEDS ORDERED: PANTOPRAZOLE 40 MG VIAL IVP STA (21:46)
[2022-05-17 22:40] VITALS: BP 120/78
== END 2022-05-17 22:41 | disposition home or self-care (01) ==
LOC: ED 20:41
DX: O99.612 Diseases of the digestive system complicating pregnancy, second trimester (principal); K92.0 Hematemesis; Z3A.19 19 weeks gestation of pregnancy
CPT/HCPCS: 36415; 80053; 81001; 81003; 83690; 85025; 87086; 96361; 96374; 96375; 99284

== ENCOUNTER 2022-06-05 15:30 | Outpatient (CLI) | payer OTHER, MEDICAID ==
--- NOTE | 2022-06-06 03:03 | Ultrasound Report ---
PROCEDURE: OB Detailed Eval INDICATIONS: SUPERVISION OF OUTSIDE/PRIOR DATING DATA: Last menstrual period (LMP): 02/01/2022. LMP-based estimated date of delivery (COREY): 11/08/2022. First dating scan (date and location): 03/28/2022. Estimated date of delivery (COREY) from first dating scan: 10/13/2022. The below data below was generated using the working COREY of 10/13/2022 TECHNIQUE: Real-time scanning was performed of the fetus, with image documentation and biometric measurements. COMPARISON: None. FINDINGS: General: A single living intrauterine gestation is present. Presentation: Breech Placenta: Placental position is anterior fundal, without previa. Amniotic fluid index: 13.5 cm, within normal limits for gestational age. Largest pocket: 4.2 cm. heart rate: 150 beats per minute. Maternal cervical canal: 3.3 cm long; normal length is 2.5 cm or more. Appears closed without endoce rvical fluid. biometrics: Biparietal diameter: 5.4 cm, 22 weeks 2 days Head circumference: 18.9 cm, 21 weeks 1 day Abdominal circumference: 16.4 cm, 21 weeks 2 days Femur length: 3.3 cm, 20 weeks 1 day Estimated gestational age from initial scan: 21 weeks 3 days Composite gestational age from present scan: 21 weeks 1 day Estimated weight and percentile: 390 g, 23rd percentile Measurement variability in biometric dating: +/- 10 days from 12-20 weeks gestation, +/- 2 weeks from 20-30 weeks gestation, +/- 3 weeks at 30 weeks gestation or later. Anatomic survey: Neuro: Ventricles are normal at less than 10 mm. Cisterna magna is normal at 3-11 mm. Cerebellum i s normal in size and morphology. Nuchal skin fold: Normal at less than 6 mm between 14 and 20 weeks gestational age. Face: Nose and lips, facial profile are normal. Spine: No definite evidence for spina bifida. The sacral spine was not well visualized due to position. Heart: 4-chambered heart is present, with normal ventricular outflow tracts. Diaphragm: Diaphragm is intact. Stomach: Left-sided stomach is present. Kidneys: No hydronephrosis. Normal is less than 5 mm in 2nd trimester, less than 7 mm in 3rd trimester. Cord: 3 vessel cord has orthotopic insertion. Bladder: Normal in size. Extremities: All 4 extremities are visualized. IMPRESSION: 1. Single living intrauterine demonstrating interval growth with estimated weight at the 23rd percentile. 2. Sacral spine not well seen due to position. anatomic survey otherwise appears within n ormal limits. Consider follow-up repeat study in 2-4 weeks for further evaluation. Reviewed by: Nakul Sanchez MD on 06/06/2022 3:02 AM PST Approved by: Nakul Sanchez MD on 06/06/2022 3:02 AM PST Station ID: [id number]
== END 2022-06-05 15:31 | disposition home or self-care (01) ==
LOC: DI 15:30
PROVIDERS: ATTEND Obstetrics & Gynecology
DX: O09.92 Supervision of high risk pregnancy, unspecified, second trimester (principal); Z3A.21 21 weeks gestation of pregnancy

== ENCOUNTER 2022-06-11 06:55 | Outpatient (CLI) | payer OTHER, MEDICAID ==
--- NOTE | 2022-06-11 11:20 | Ultrasound Report ---
PROCEDURE: OB F/U or Repeat INDICATIONS: SUPERVISION OF OUTSIDE/PRIOR DATING DATA: Last menstrual period (LMP): 02/01/2022. LMP-based estimated date of delivery (COREY): 11/08/2022. First dating scan (date and location): 03/28/2022. Estimated date of delivery (COREY) from first dating scan: 10/13/2022. TECHNIQUE: Real-time scanning was performed of the fetus, with image documentation and biometric measurements. Endovaginal scanning: None COMPARISON: None. FINDINGS: General: A single living intrauterine gestation is present. Presentation: Breech Placenta: Placental position is anterior, without previa. Amniotic fluid index: 12.3 cm, normal for gestational age. 22.3 percentile heart rate: 152 beats per minute. Maternal cervical canal: 3.6 cm long; normal length is 2.5 cm or more. Estimated gestational age from initial scan: 22 week 2 day Lumbosacral spine is within normal limits. Remaining visualized anatomy is also within appropri ate limits. Other: Not applicable. IMPRESSION: Single live intrauterine consistent with 22 week 2 day gestation by initial ultrasound Reviewed by: Heber Boudreaux MD on 06/11/2022 10:18 AM [place] Approved by: Heber Boudreaux MD on 06/11/2022 10:18 AM [facility] Station ID: [id number]
== END 2022-06-11 06:56 | disposition home or self-care (01) ==
LOC: DI 06:55
PROVIDERS: ATTEND Obstetrics & Gynecology
DX: O09.92 Supervision of high risk pregnancy, unspecified, second trimester (principal); Z3A.22 22 weeks gestation of pregnancy

== ENCOUNTER 2022-07-11 10:00 | Outpatient (CLI) | payer OTHER, MEDICAID | END 2022-10-09 23:59 | disposition home or self-care (01) | LOC: LAB 10:00 | PROVIDERS: ATTEND Obstetrics & Gynecology | DX: Z53.9 Procedure and treatment not carried out, unspecified reason (principal) ==

== ENCOUNTER 2022-07-22 11:14 | Emergency (ER) | payer OTHER, MEDICAID ==
--- OUTSIDE RECORDS SUMMARY | 2022-07-22 11:32 | EXTERNAL MEDICAL SUMMARY RPT | Continuity of Care Document ---
:2000 Author Organization [facility] Address [address] [place] [address] Phone Care Team Providers Name Role Phone Unavailable Unavailable Unavailable [facility] Unavailable Unavailable Keshav Guillen, Favio Unavailable Unavailable Marcos Klein, Alyson Unavailable Unavailable [facility] Unavailable Unavailable Cher, Provider Unavailable Unavailable Lori Referrals, Lejani Unavailable Unavailable Allergies No information. Encounters No information. Functional Status No information. Immunizations No information. Medications date description facility 2022-06-17 00:00 metoclopramide hcl All 2022-06-17 00:00 metoclopramide hcl All 2022-05-25 00:00 buprenorphine-naloxone All 2022-05-27 00:00 buprenorphine-naloxone All 2022-06-09 00:00 buprenorphine-naloxone All 2022-06-16 00:00 buprenorphine-naloxone All 2022-06-17 00:00 buprenorphine-naloxone All 2022-07-09 00:00 buprenorphine-naloxone All 2022-07-10 00:00 buprenorphine-naloxone All 2022-07-22 00:00 buprenorphine-naloxone All 2022-04-27 00:00 nitrofurantoin monohyd/m-cryst All 2022-04-27 00:00 nitrofurantoin monohyd/m-cryst All 2022-04-27 00:00 nitrofurantoin monohyd/m-cryst All 2022-04-27 00:00 nitrofurantoin monohyd/m-cryst All 2022-04-27 00:00 nitrofurantoin monohyd/m-cryst All 2022-04-27 00:00 nitrofurantoin monohyd/m-cryst All 2022-06-17 00:00 metoclopramide hcl All 2022-06-17 00:00 metoclopramide hcl All 2022-05-25 00:00 buprenorphine-naloxone All 2022-05-27 00:00 buprenorphine-naloxone All 2022-06-09 00:00 buprenorphine-naloxone All 2022-06-16 00:00 buprenorphine-naloxone All 2022-06-17 00:00 buprenorphine-naloxone All 2022-07-09 00:00 buprenorphine-naloxone All 2022-07-10 00:00 buprenorphine-naloxone All 2022-07-22 00:00 buprenorphine-naloxone All 2022-04-27 00:00 nitrofurantoin monohyd/m-cryst All 2022-04-27 00:00 nitrofurantoin monohyd/m-cryst All 2022-04-27 00:00 nitrofurantoin monohyd/m-cryst All 2022-04-27 00:00 nitrofurantoin monohyd/m-cryst All 2022-04-27 00:00 nitrofurantoin monohyd/m-cryst All 2022-04-27 00:00 nitrofurantoin monohyd/m-cryst All 2022-06-09 00:00 ondansetron hcl All 2022-06-09 00:00 ondansetron hcl All 2022-06-09 00:00 ondansetron hcl All 2022-06-09 00:00 ondansetron hcl All 2022-06-09 00:00 ondansetron hcl All 2022-06-09 00:00 ondansetron hcl All 2022-06-17 00:00 metoclopramide hcl All 2022-06-17 00:00 metoclopramide hcl All 2022-05-25 00:00 buprenorphine-naloxone All 2022-05-27 00:00 buprenorphine-naloxone All 2022-06-09 00:00 buprenorphine-naloxone All 2022-06-16 00:00 buprenorphine-naloxone All 2022-06-17 00:00 buprenorphine-naloxone All 2022-07-09 00:00 buprenorphine-naloxone All 2022-07-10 00:00 buprenorphine-naloxone All 2022-07-22 00:00 buprenorphine-naloxone All 2022-06-09 00:00 ondansetron hcl All 2022-06-09 00:00 ondansetron hcl All 2022-06-09 00:00 ondansetron hcl All 2022-06-17 00:00 metoclopramide hcl All 2022-06-17 00:00 metoclopramide hcl All 2022-04-27 00:00 nitrofurantoin monohyd/m-cryst All 2022-04-27 00:00 nitrofurantoin monohyd/m-cryst All 2022-04-27 00:00 nitrofurantoin monohyd/m-cryst All 2022-04-27 00:00 nitrofurantoin monohyd/m-cryst All 2022-04-27 00:00 nitrofurantoin monohyd/m-cryst All 2022-04-27 00:00 nitrofurantoin monohyd/m-cryst All 2022-04-27 00:00 nitrofurantoin monohyd/m-cryst All 2022-04-27 00:00 nitrofurantoin monohyd/m-cryst All 2022-04-27 00:00 nitrofurantoin monohyd/m-cryst All 2022-04-27 00:00 nitrofurantoin monohyd/m-cryst All 2022-04-27 00:00 nitrofurantoin monohyd/m-cryst All 2022-04-27 00:00 nitrofurantoin monohyd/m-cryst All 2022-06-09 00:00 ondansetron hcl All 2022-06-09 00:00 ondansetron hcl All 2022-06-09 00:00 ondansetron hcl All 2022-05-25 00:00 buprenorphine-naloxone All 2022-05-27 00:00 buprenorphine-naloxone All 2022-06-09 00:00 buprenorphine-naloxone All 2022-06-16 00:00 buprenorphine-naloxone All 2022-06-17 00:00 buprenorphine-naloxone All 2022-07-09 00:00 buprenorphine-naloxone All 2022-07-10 00:00 buprenorphine-naloxone All 2022-07-22 00:00 buprenorphine-naloxone All Problems date description facility 2022-04-23 00:00 High risk All 2022-04-23 00:00 High risk All 2022-04-23 00:00 High risk All 2022-04-23 00:00 High risk All 2022-04-23 00:00 High risk All 2022-04-23 00:00 High risk All 2022-04-23 00:00 Supervision of high risk , uns pecified, All second trimester 2022-04-23 00:00 Supervision of high risk , uns pecified, All second trimester 2022-04-23 00:00 Supervision of high risk , uns pecified, All second trimester 2022-04-23 00:00 Supervision of high risk , uns pecified, All second trimester 2022-04-23 00:00 Supervision of high risk , uns pecified, All second trimester 2022-04-23 00:00 Supervision of high risk , uns pecified, All second trimester 2022-04-23 00:00 Supervision of unspecified high-risk pr egnancy All 2022-04-23 00:00 Supervision of unspecified high-risk pr egnancy All 2022-04-23 00:00 Supervision of unspecified high-risk pr egnancy All 2022-04-23 00:00 Supervision of unspecified high-risk pr egnancy All 2022-04-23 00:00 Supervision of unspecified high-risk pr egnancy All 2022-04-23 00:00 Supervision of unspecified high-risk pr egnancy All 2022-05-20 00:00 Unspecified drug-induced mental disorde r All 2022-05-20 00:00 Unspecified drug-induced mental disorde r All 2022-05-20 00:00 Unspecified drug-induced mental disorde r All 2022-05-20 00:00 Unspecified drug-induced mental disorde r All 2022-05-20 00:00 Opioid abuse All 2022-05-20 00:00 Opioid abuse All 2022-05-20 00:00 Opioid abuse All 2022-05-20 00:00 Opioid abuse All 2022-05-20 00:00 Opioid use, 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 2022-05-20 00:00 Opioid use, 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 2022-05-20 00:00 Opioid use, 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 2022-05-20 00:00 Opioid use, 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 2022-07-09 00:00 Insufficient weight gain of All 2022-07-09 00:00 Insufficient weight gain of All 2022-07-09 00:00 Other specified complications of pregnan cy, antepartum All condition or complication 2022-07-09 00:00 Other specified complications of pregnan cy, antepartum All condition or complication 2022-07-09 00:00 Low weight gain in , unspecifi ed trimester All 2022-07-09 00:00 Low weight gain in , unspecifi ed trimester All Procedures date description facility 2022-05-20 00:00 ANATOMY SCAN, SINGLE FETUS All 2022-05-20 00:00 ANATOMY SCAN, SINGLE FETUS All 2022-06-08 00:00 US OB FOLLOW-UP All 2022-06-08 00:00 US OB FOLLOW-UP All 2022-04-23 00:00 Urinalysis with Microscopic Exam, Cultu re in Indicated All 2022-04-23 00:00 Urinalysis with Microscopic Exam, Cultu re in Indicated All 2022-04-23 00:00 [id number] Core + SCA All 2022-04-23 00:00 [id number] Core + SCA All 2022-07-09 00:00 First Ix admin via ID IM or jet injects with All counseling by physician for adult 2022-07-09 00:00 First Ix admin via ID IM or jet injects with All counseling by physician for adult 2022-07-09 00:00 Fluarix Quadrivalent Intramuscular Susp ension All Prefilled Syringe 0.5 ML 2022-07-09 00:00 Fluarix Quadrivalent Intramuscular Susp ension All Prefilled Syringe 0.5 ML 2022-04-23 00:00 Urine C&S All 2022-04-23 00:00 Urine C&S All Results/Labs test date author facility value unit interpret ation Result panel 1 (unknown) (no date) (unknown) All (no value) (units unknown ) (unknown) Result panel 2 (unknown) (no date) (unknown) All (no value) (units unknown ) (unknown) Result panel 3 (unknown) (no date) (unknown) All (no value) (units unknown ) (unknown) Result panel 4 (unknown) (no date) (unknown) All (no value) (units unknown ) (unknown) Result panel 5 (unknown) (no date) (unknown) All (no value) (units unknown ) (unknown) Result panel 6 (unknown) (no date) (unknown) All (no value) (units unknown ) (unknown) Result panel 7 (unknown) (no date) (unknown) All (no value) (units unknown ) (unknown) Result panel 8 (unknown) (no date) (unknown) All (no value) (units unknown ) (unknown) Result panel 9 (unknown) (no date) (unknown) All (no value) (units unknown ) (unknown) Result panel 10 (unknown) (no date) (unknown) All (no value) (units unknown ) (unknown) Result panel 11 (unknown) (no date) (unknown) All (no value) (units unknown ) (unknown) Result panel 12 (unknown) (no date) (unknown) All (no value) (units unknown ) (unknown) Result panel 13 (unknown) (no date) (unknown) All (no value) (units unknown ) (unknown) Result panel 14 (unknown) (no date) (unknown) All (no value) (units unknown ) (unknown) Result panel 15 (unknown) (no date) (unknown) All (no value) (units unknown ) (unknown) Result panel 16 (unknown) (no date) (unknown) All (no value) (units unknown ) (unknown) Result panel 17 (unknown) (no date) (unknown) All (no value) (units unknown ) (unknown) Result panel 18 (unknown) (no date) (unknown) All (no value) (units unknown ) (unknown) Result panel 19 (unknown) (no date) (unknown) All (no value) (units unknown ) (unknown) Result panel 20 (unknown) (no date) (unknown) All (no value) (units unknown ) (unknown) Result panel 21 (unknown) (no date) (unknown) All (no value) (units unknown ) (unknown) Result panel 22 (unknown) (no date) (unknown) All (no value) (units unknown ) (unknown) Result panel 23 (unknown) (no date) (unknown) All (no value) (units unknown ) (unknown) Result panel 24 (unknown) (no date) (unknown) All (no value) (units unknown ) (unknown) Result panel 25 (unknown) (no date) (unknown) All (no value) (units unknown ) (unknown) Result panel 26 (unknown) (no date) (unknown) All (no value) (units unknown ) (unknown) Result panel 27 (unknown) (no date) (unknown) All (no value) (units unknown ) (unknown) Result panel 28 (unknown) (no date) (unknown) All (no value) (units unknown ) (unknown) Result panel 29 (unknown) (no date) (unknown) All (no value) (units unknown ) (unknown) Result panel 30 (unknown) (no date) (unknown) All (no value) (units unknown ) (unknown) Result panel 31 (unknown) (no date) (unknown) All (no value) (units unknown ) (unknown) Result panel 32 (unknown) (no date) (unknown) All (no value) (units unknown ) (unknown) Result panel 33 (unknown) (no date) (unknown) All (no value) (units unknown ) (unknown) Result panel 34 (unknown) (no date) (unknown) All (no value) (units unknown ) (unknown) Result panel 35 (unknown) (no date) (unknown) All (no value) (units unknown ) (unknown) Result panel 36 (unknown) (no date) (unknown) All (no value) (units unknown ) (unknown) Result panel 37 (unknown) (no date) (unknown) All (no value) (units unknown ) (unknown) Result panel 38 (unknown) (no date) (unknown) All (no value) (units unknown ) (unknown) Result panel 39 (unknown) (no date) (unknown) All (no value) (units unknown ) (unknown) Result panel 40 (unknown) (no date) (unknown) All (no value) (units unknown ) (unknown) Result panel 41 (unknown) (no date) (unknown) All (no value) (units unknown ) (unknown) Result panel 42 (unknown) (no date) (unknown) All (no value) (units unknown ) (unknown) Result panel 43 (unknown) (no date) (unknown) All (no value) (units unknown ) (unknown) Result panel 44 (unknown) (no date) (unknown) All (no value) (units unknown ) (unknown) Result panel 45 (unknown) (no date) (unknown) All (no value) (units unknown ) (unknown) Result panel 46 (unknown) (no date) (unknown) All (no value) (units unknown ) (unknown) Result panel 47 (unknown) (no date) (unknown) All (no value) (units unknown ) (unknown) Result panel 48 (unknown) (no date) (unknown) All (no value) (units unknown ) (unknown) Result panel 49 (unknown) (no date) (unknown) All (no value) (units unknown ) (unknown) Result panel 50 (unknown) (no date) (unknown) All (no value) (units unknown ) (unknown) Result panel 51 (unknown) (no date) (unknown) All (no value) (units unknown ) (unknown) Result panel 52 (unknown) (no date) (unknown) All (no value) (units unknown ) (unknown) Result panel 53 (unknown) (no date) (unknown) All (no value) (units unknown ) (unknown) Result panel 54 (unknown) (no date) (unknown) All (no value) (units unknown ) (unknown) Result panel 55 (unknown) (no date) (unknown) All (no value) (units unknown ) (unknown) Result panel 56 (unknown) (no date) (unknown) All (no value) (units unknown ) (unknown) Result panel 57 (unknown) (no date) (unknown) All (no value) (units unknown ) (unknown) Result panel 58 (unknown) (no date) (unknown) All (no value) (units unknown ) (unknown) Result panel 59 (unknown) (no date) (unknown) All (no value) (units unknown ) (unknown) Result panel 60 (unknown) (no date) (unknown) All (no value) (units unknown ) (unknown) Result panel 61 (unknown) (no date) (unknown) All (no value) (units unknown ) (unknown) Result panel 62 (unknown) (no date) (unknown) All (no value) (units unknown ) (unknown) Result panel 63 (unknown) (no date) (unknown) All (no value) (units unknown ) (unknown) Result panel 64 (unknown) (no date) (unknown) All (no value) (units unknown ) (unknown) Result panel 65 (unknown) (no date) (unknown) All (no value) (units unknown ) (unknown) Result panel 66 (unknown) (no date) (unknown) All (no value) (units unknown ) (unknown) Result panel 67 (unknown) (no date) (unknown) All (no value) (units unknown ) (unknown) Result panel 68 (unknown) (no date) (unknown) All (no value) (units unknown ) (unknown) Result panel 69 (unknown) (no date) (unknown) All (no value) (units unknown ) (unknown) Result panel 70 (unknown) (no date) (unknown) All (no value) (units unknown ) (unknown) Result panel 71 (unknown) (no date) (unknown) All (no value) (units unknown ) (unknown) Result panel 72 (unknown) (no date) (unknown) All (no value) (units unknown ) (unknown) Result panel 73 (unknown) (no date) (unknown) All (no value) (units unknown ) (unknown) Result panel 74 (unknown) (no date) (unknown) All (no value) (units unknown ) (unknown) Result panel 75 (unknown) (no date) (unknown) All (no value) (units unknown ) (unknown) Result panel 76 (unknown) (no date) (unknown) All (no value) (units unknown ) (unknown) Result panel 77 (unknown) (no date) (unknown) All (no value) (units unknown ) (unknown) Result panel 78 (unknown) (no date) (unknown) All (no value) (units unknown ) (unknown) Result panel 79 (unknown) (no date) (unknown) All (no value) (units unknown ) (unknown) Result panel 80 (unknown) (no date) (unknown) All (no value) (units unknown ) (unknown) Result panel 81 (unknown) (no date) (unknown) All (no value) (units unknown ) (unknown) Result panel 82 (unknown) (no date) (unknown) All (no value) (units unknown ) (unknown) Result panel 83 (unknown) (no date) (unknown) All (no value) (units unknown ) (unknown) Result panel 84 (unknown) (no date) (unknown) All (no value) (units unknown ) (unknown) Result panel 85 (unknown) (no date) (unknown) All (no value) (units unknown ) (unknown) Result panel 86 (unknown) (no date) (unknown) All (no value) (units unknown ) (unknown) Result panel 87 (unknown) (no date) (unknown) All (no value) (units unknown ) (unknown) Result panel 88 (unknown) (no date) (unknown) All (no value) (units unknown ) (unknown) Result panel 89 (unknown) (no date) (unknown) All (no value) (units unknown ) (unknown) Result panel 90 (unknown) (no date) (unknown) All (no value) (units unknown ) (unknown) Result panel 91 (unknown) (no date) (unknown) All (no value) (units unknown ) (unknown) Result panel 92 (unknown) (no date) (unknown) All (no value) (units unknown ) (unknown) Result panel 93 (unknown) (no date) (unknown) All (no value) (units unknown ) (unknown) Result panel 94 (unknown) (no date) (unknown) All (no value) (units unknown ) (unknown) Result panel 95 (unknown) (no date) (unknown) All (no value) (units unknown ) (unknown) Result panel 96 (unknown) (no date) (unknown) All (no value) (units unknown ) (unknown) Result panel 97 (unknown) (no date) (unknown) All (no value) (units unknown ) (unknown) Result panel 98 (unknown) (no date) (unknown) All (no value) (units unknown ) (unknown) Result panel 99 (unknown) (no date) (unknown) All (no value) (units unknown ) (unknown) Result panel 100 (unknown) (no date) (unknown) All (no value) (units unknown ) (unknown) Result panel 101 (unknown) (no date) (unknown) All (no value) (units unknown ) (unknown) Result panel 102 (unknown) (no date) (unknown) All (no value) (units unknown ) (unknown) Result panel 103 (unknown) (no date) (unknown) All (no value) (units unknown ) (unknown) Result panel 104 (unknown) (no date) (unknown) All (no value) (units unknown ) (unknown) Result panel 105 (unknown) (no date) (unknown) All (no value) (units unknown ) (unknown) Result panel 106 (unknown) (no date) (unknown) All (no value) (units unknown ) (unknown) Result panel 107 (unknown) (no date) (unknown) All (no value) (units unknown ) (unknown) Result panel 108 (unknown) (no date) (unknown) All (no value) (units unknown ) (unknown) Result panel 109 (unknown) (no date) (unknown) All (no value) (units unknown ) (unknown) Result panel 110 (unknown) (no date) (unknown) All (no value) (units unknown ) (unknown) Result panel 111 (unknown) (no date) (unknown) All (no value) (units unknown ) (unknown) Result panel 112 (unknown) (no date) (unknown) All (no value) (units unknown ) (unknown) Result panel 113 (unknown) (no date) (unknown) All (no value) (units unknown ) (unknown) Result panel 114 (unknown) (no date) (unknown) All (no value) (units unknown ) (unknown) Result panel 115 (unknown) (no date) (unknown) All (no value) (units unknown ) (unknown) Result panel 116 (unknown) (no date) (unknown) All (no value) (units unknown ) (unknown) Result panel 117 (unknown) (no date) (unknown) All (no value) (units unknown ) (unknown) Result panel 118 (unknown) (no date) (unknown) All (no value) (units unknown ) (unknown) Result panel 119 (unknown) (no date) (unknown) All (no value) (units unknown ) (unknown) Result panel 120 (unknown) (no date) (unknown) All (no value) (units unknown ) (unknown) Result panel 121 (unknown) (no date) (unknown) All (no value) (units unknown ) (unknown) Result panel 122 (unknown) (no date) (unknown) All (no value) (units unknown ) (unknown) Result panel 123 (unknown) (no date) (unknown) All (no value) (units unknown ) (unknown) Result panel 124 (unknown) (no date) (unknown) All (no value) (units unknown ) (unknown) Result panel 125 (unknown) (no date) (unknown) All (no value) (units unknown ) (unknown) Result panel 126 (unknown) (no date) (unknown) All (no value) (units unknown ) (unknown) Result panel 127 (unknown) (no date) (unknown) All (no value) (units unknown ) (unknown) Result panel 128 (unknown) (no date) (unknown) All (no value) (units unknown ) (unknown) Result panel 129 (unknown) (no date) (unknown) All (no value) (units unknown ) (unknown) Result panel 130 (unknown) (no date) (unknown) All (no value) (units unknown ) (unknown) Result panel 131 (unknown) (no date) (unknown) All (no value) (units unknown ) (unknown) Result panel 132 (unknown) (no date) (unknown) All (no value) (units unknown ) (unknown) Result panel 133 (unknown) (no date) (unknown) All (no value) (units unknown ) (unknown) Result panel 134 (unknown) (no date) (unknown) All (no value) (units unknown ) (unknown) Result panel 135 (unknown) (no date) (unknown) All (no value) (units unknown ) (unknown) Result panel 136 (unknown) (no date) (unknown) All (no value) (units unknown ) (unknown) Result panel 137 (unknown) (no date) (unknown) All (no value) (units unknown ) (unknown) Result panel 138 (unknown) (no date) (unknown) All (no value) (units unknown ) (unknown) Result panel 139 (unknown) (no date) (unknown) All (no value) (units unknown ) (unknown) Result panel 140 (unknown) (no date) (unknown) All (no value) (units unknown ) (unknown) Result panel 141 (unknown) (no date) (unknown) All (no value) (units unknown ) (unknown) Result panel 142 (unknown) (no date) (unknown) All (no value) (units unknown ) (unknown) Result panel 143 (unknown) (no date) (unknown) All (no value) (units unknown ) (unknown) Result panel 144 (unknown) (no date) (unknown) All (no value) (units unknown ) (unknown) Result panel 145 (unknown) (no date) (unknown) All (no value) (units unknown ) (unknown) Result panel 146 (unknown) (no date) (unknown) All (no value) (units unknown ) (unknown) Result panel 147 (unknown) (no date) (unknown) All (no value) (units unknown ) (unknown) Result panel 148 (unknown) (no date) (unknown) All (no value) (units unknown ) (unknown) Result panel 149 (unknown) (no date) (unknown) All (no value) (units unknown ) (unknown) Result panel 150 (unknown) (no date) (unknown) All (no value) (units unknown ) (unknown) Result panel 151 (unknown) (no date) (unknown) All (no value) (units unknown ) (unknown) Result panel 152 (unknown) (no date) (unknown) All (no value) (units unknown ) (unknown) Result panel 153 (unknown) (no date) (unknown) All (no value) (units unknown ) (unknown) Result panel 154 (unknown) (no date) (unknown) All (no value) (units unknown ) (unknown) Result panel 155 (unknown) (no date) (unknown) All (no value) (units unknown ) (unknown) Result panel 156 (unknown) (no date) (unknown) All (no value) (units unknown ) (unknown) Result panel 157 (unknown) (no date) (unknown) All (no value) (units unknown ) (unknown) Result panel 158 (unknown) (no date) (unknown) All (no value) (units unknown ) (unknown) Result panel 159 (unknown) (no date) (unknown) All (no value) (units unknown ) (unknown) Result panel 160 (unknown) (no date) (unknown) All (no value) (units unknown ) (unknown) Result panel 161 (unknown) (no date) (unknown) All (no value) (units unknown ) (unknown) Result panel 162 (unknown) (no date) (unknown) All (no value) (units unknown ) (unknown) Result panel 163 (unknown) (no date) (unknown) All (no value) (units unknown ) (unknown) Result panel 164 (unknown) (no date) (unknown) All (no value) (units unknown ) (unknown) Result panel 165 (unknown) (no date) (unknown) All (no value) (units unknown ) (unknown) Result panel 166 (unknown) (no date) (unknown) All (no value) (units unknown ) (unknown) Result panel 167 (unknown) (no date) (unknown) All (no value) (units unknown ) (unknown) Result panel 168 (unknown) (no date) (unknown) All (no value) (units unknown ) (unknown) Result panel 169 (unknown) (no date) (unknown) All (no value) (units unknown ) (unknown) Result panel 170 (unknown) (no date) (unknown) All (no value) (units unknown ) (unknown) Result panel 171 (unknown) (no date) (unknown) All (no value) (units unknown ) (unknown) Result panel 172 (unknown) (no date) (unknown) All (no value) (units unknown ) (unknown) Result panel 173 (unknown) (no date) (unknown) All (no value) (units unknown ) (unknown) Result panel 174 (unknown) (no date) (unknown) All (no value) (units unknown ) (unknown) Result panel 175 (unknown) (no date) (unknown) All (no value) (units unknown ) (unknown) Result panel 176 (unknown) (no date) (unknown) All (no value) (units unknown ) (unknown) Result panel 177 (unknown) (no date) (unknown) All (no value) (units unknown ) (unknown) Result panel 178 (unknown) (no date) (unknown) All (no value) (units unknown ) (unknown) Result panel 179 (unknown) (no date) (unknown) All (no value) (units unknown ) (unknown) Result panel 180 (unknown) (no date) (unknown) All (no value) (units unknown ) (unknown) Result panel 181 (unknown) (no date) (unknown) All (no value) (units unknown ) (unknown) Result panel 182 (unknown) (no date) (unknown) All (no value) (units unknown ) (unknown) Result panel 183 (unknown) (no date) (unknown) All (no value) (units unknown ) (unknown) Result panel 184 (unknown) (no date) (unknown) All (no value) (units unknown ) (unknown) Result panel 185 (unknown) (no date) (unknown) All (no value) (units unknown ) (unknown) Result panel 186 (unknown) (no date) (unknown) All (no value) (units unknown ) (unknown) Result panel 187 (unknown) (no date) (unknown) All (no value) (units unknown ) (unknown) Result panel 188 (unknown) (no date) (unknown) All (no value) (units unknown ) (unknown) Result panel 189 (unknown) (no date) (unknown) All (no value) (units unknown ) (unknown) Result panel 190 (unknown) (no date) (unknown) All (no value) (units unknown ) (unknown) Result panel 191 (unknown) (no date) (unknown) All (no value) (units unknown ) (unknown) Result panel 192 (unknown) (no date) (unknown) All (no value) (units unknown ) (unknown) Result panel 193 (unknown) (no date) (unknown) All (no value) (units unknown ) (unknown) Result panel 194 (unknown) (no date) (unknown) All (no value) (units unknown ) (unknown) Result panel 195 (unknown) (no date) (unknown) All (no value) (units unknown ) (unknown) Result panel 196 (unknown) (no date) (unknown) All (no value) (units unknown ) (unknown) Result panel 197 (unknown) (no date) (unknown) All (no value) (units unknown ) (unknown) Result panel 198 (unknown) (no date) (unknown) All (no value) (units unknown ) (unknown) Result panel 199 (unknown) (no date) (unknown) All (no value) (units unknown ) (unknown) Result panel 200 (unknown) (no date) (unknown) All (no value) (units unknown ) (unknown) Result panel 201 (unknown) (no date) (unknown) All (no value) (units unknown ) (unknown) Result panel 202 (unknown) (no date) (unknown) All (no value) (units unknown ) (unknown) Result panel 203 (unknown) (no date) (unknown) All (no value) (units unknown ) (unknown) Result panel 204 (unknown) (no date) (unknown) All (no value) (units unknown ) (unknown) Result panel 205 (unknown) (no date) (unknown) All (no value) (units unknown ) (unknown) Result panel 206 (unknown) (no date) (unknown) All (no value) (units unknown ) (unknown) Result panel 207 (unknown) (no date) (unknown) All (no value) (units unknown ) (unknown) Result panel 208 (unknown) (no date) (unknown) All (no value) (units unknown ) (unknown) Result panel 209 (unknown) (no date) (unknown) All (no value) (units unknown ) (unknown) Result panel 210 (unknown) (no date) (unknown) All (no value) (units unknown ) (unknown) Result panel 211 (unknown) (no date) (unknown) All (no value) (units unknown ) (unknown) Result panel 212 (unknown) (no date) (unknown) All (no value) (units unknown ) (unknown) Result panel 213 (unknown) (no date) (unknown) All (no value) (units unknown ) (unknown) Result panel 214 (unknown) (no date) (unknown) All (no value) (units unknown ) (unknown) Result panel 215 (unknown) (no date) (unknown) All (no value) (units unknown ) (unknown) Result panel 216 (unknown) (no date) (unknown) All (no value) (units unknown ) (unknown) Result panel 217 (unknown) (no date) (unknown) All (no value) (units unknown ) (unknown) Result panel 218 (unknown) (no date) (unknown) All (no value) (units unknown ) (unknown) Result panel 219 (unknown) (no date) (unknown) All (no value) (units unknown ) (unknown) Result panel 220 (unknown) (no date) (unknown) All (no value) (units unknown ) (unknown) Result panel 221 (unknown) (no date) (unknown) All (no value) (units unknown ) (unknown) Result panel 222 (unknown) (no date) (unknown) All (no value) (units unknown ) (unknown) Result panel 223 (unknown) (no date) (unknown) All (no value) (units unknown ) (unknown) Result panel 224 (unknown) (no date) (unknown) All (no value) (units unknown ) (unknown) Result panel 225 (unknown) (no date) (unknown) All (no value) (units unknown ) (unknown) Result panel 226 (unknown) (no date) (unknown) All (no value) (units unknown ) (unknown) Result panel 227 (unknown) (no date) (unknown) All (no value) (units unknown ) (unknown) Result panel 228 (unknown) (no date) (unknown) All (no value) (units unknown ) (unknown) Result panel 229 (unknown) (no date) (unknown) All (no value) (units unknown ) (unknown) Result panel 230 (unknown) (no date) (unknown) All (no value) (units unknown ) (unknown) Result panel 231 (unknown) (no date) (unknown) All (no value) (units unknown ) (unknown) Result panel 232 (unknown) (no date) (unknown) All (no value) (units unknown ) (unknown) Result panel 233 (unknown) (no date) (unknown) All (no value) (units unknown ) (unknown) Result panel 234 (unknown) (no date) (unknown) All (no value) (units unknown ) (unknown) Result panel 235 (unknown) (no date) (unknown) All (no value) (units unknown ) (unknown) Result panel 236 (unknown) (no date) (unknown) All (no value) (units unknown ) (unknown) Result panel 237 (unknown) (no date) (unknown) All (no value) (units unknown ) (unknown) Result panel 238 (unknown) (no date) (unknown) All (no value) (units unknown ) (unknown) Result panel 239 (unknown) (no date) (unknown) All (no value) (units unknown ) (unknown) Result panel 240 (unknown) (no date) (unknown) All (no value) (units unknown ) (unknown) Result panel 241 (unknown) (no date) (unknown) All (no value) (units unknown ) (unknown) Result panel 242 (unknown) (no date) (unknown) All (no value) (units unknown ) (unknown) Result panel 243 (unknown) (no date) (unknown) All (no value) (units unknown ) (unknown) Result panel 244 (unknown) (no date) (unknown) All (no value) (units unknown ) (unknown) Result panel 245 (unknown) (no date) (unknown) All (no value) (units unknown ) (unknown) Result panel 246 (unknown) (no date) (unknown) All (no value) (units unknown ) (unknown) Result panel 247 (unknown) (no date) (unknown) All (no value) (units unknown ) (unknown) Result panel 248 (unknown) (no date) (unknown) All (no value) (units unknown ) (unknown) Result panel 249 (unknown) (no date) (unknown) All (no value) (units unknown ) (unknown) Result panel 250 (unknown) (no date) (unknown) All (no value) (units unknown ) (unknown) Result panel 251 (unknown) (no date) (unknown) All (no value) (units unknown ) (unknown) Result panel 252 (unknown) (no date) (unknown) All (no value) (units unknown ) (unknown) Result panel 253 (unknown) (no date) (unknown) All (no value) (units unknown ) (unknown) Result panel 254 (unknown) (no date) (unknown) All (no value) (units unknown ) (unknown) Result panel 255 (unknown) (no date) (unknown) All (no value) (units unknown ) (unknown) Result panel 256 (unknown) (no date) (unknown) All (no value) (units unknown ) (unknown) Result panel 257 (unknown) (no date) (unknown) All (no value) (units unknown ) (unknown) Result panel 258 (unknown) (no date) (unknown) All (no value) (units unknown ) (unknown) Result panel 259 (unknown) (no date) (unknown) All (no value) (units unknown ) (unknown) Result panel 260 (unknown) (no date) (unknown) All (no value) (units unknown ) (unknown) Result panel 261 (unknown) (no date) (unknown) All (no value) (units unknown ) (unknown) Result panel 262 (unknown) (no date) (unknown) All (no value) (units unknown ) (unknown) Result panel 263 (unknown) (no date) (unknown) All (no value) (units unknown ) (unknown) Result panel 264 (unknown) (no date) (unknown) All (no value) (units unknown ) (unknown) Result panel 265 (unknown) (no date) (unknown) All (no value) (units unknown ) (unknown) Result panel 266 (unknown) (no date) (unknown) All (no value) (units unknown ) (unknown) Result panel 267 (unknown) (no date) (unknown) All (no value) (units unknown ) (unknown) Result panel 268 (unknown) (no date) (unknown) All (no value) (units unknown ) (unknown) Result panel 269 (unknown) (no date) (unknown) All (no value) (units unknown ) (unknown) Result panel 270 (unknown) (no date) (unknown) All (no value) (units unknown ) (unknown) Result panel 271 (unknown) (no date) (unknown) All (no value) (units unknown ) (unknown) Result panel 272 (unknown) (no date) (unknown) All (no value) (units unknown ) (unknown) Result panel 273 (unknown) (no date) (unknown) All (no value) (units unknown ) (unknown) Result panel 274 (unknown) (no date) (unknown) All (no value) (units unknown ) (unknown) Result panel 275 (unknown) (no date) (unknown) All (no value) (units unknown ) (unknown) Result panel 276 (unknown) (no date) (unknown) All (no value) (units unknown ) (unknown) Result panel 277 (unknown) (no date) (unknown) All (no value) (units unknown ) (unknown) Result panel 278 (unknown) (no date) (unknown) All (no value) (units unknown ) (unknown) Result panel 279 (unknown) (no date) (unknown) All (no value) (units unknown ) (unknown) Result panel 280 (unknown) (no date) (unknown) All (no value) (units unknown ) (unknown) Result panel 281 (unknown) (no date) (unknown) All (no value) (units unknown ) (unknown) Result panel 282 (unknown) (no date) (unknown) All (no value) (units unknown ) (unknown) Result panel 283 (unknown) (no date) (unknown) All (no value) (units unknown ) (unknown) Result panel 284 (unknown) (no date) (unknown) All (no value) (units unknown ) (unknown) Result panel 285 (unknown) (no date) (unknown) All (no value) (units unknown ) (unknown) Result panel 286 (unknown) (no date) (unknown) All (no value) (units unknown ) (unknown) Result panel 287 (unknown) (no date) (unknown) All (no value) (units unknown ) (unknown) Result panel 288 (unknown) (no date) (unknown) All (no value) (units unknown ) (unknown) Result panel 289 (unknown) (no date) (unknown) All (no value) (units unknown ) (unknown) Result panel 290 (unknown) (no date) (unknown) All (no value) (units unknown ) (unknown) Result panel 291 (unknown) (no date) (unknown) All (no value) (units unknown ) (unknown) Result panel 292 (unknown) (no date) (unknown) All (no value) (units unknown ) (unknown) Result panel 293 (unknown) (no date) (unknown) All (no value) (units unknown ) (unknown) Result panel 294 (unknown) (no date) (unknown) All (no value) (units unknown ) (unknown) Result panel 295 (unknown) (no date) (unknown) All (no value) (units unknown ) (unknown) Result panel 296 (unknown) (no date) (unknown) All (no value) (units unknown ) (unknown) Result panel 297 (unknown) (no date) (unknown) All (no value) (units unknown ) (unknown) Result panel 298 (unknown) (no date) (unknown) All (no value) (units unknown ) (unknown) Result panel 299 (unknown) (no date) (unknown) All (no value) (units unknown ) (unknown) Result panel 300 (unknown) (no date) (unknown) All (no value) (units unknown ) (unknown) Result panel 301 (unknown) (no date) (unknown) All (no value) (units unknown ) (unknown) Result panel 302 (unknown) (no date) (unknown) All (no value) (units unknown ) (unknown) Result panel 303 (unknown) (no date) (unknown) All (no value) (units unknown ) (unknown) Result panel 304 (unknown) (no date) (unknown) All (no value) (units unknown ) (unknown) Result panel 305 (unknown) (no date) (unknown) All (no value) (units unknown ) (unknown) Result panel 306 (unknown) (no date) (unknown) All (no value) (units unknown ) (unknown) Result panel 307 (unknown) (no date) (unknown) All (no value) (units unknown ) (unknown) Result panel 308 (unknown) (no date) (unknown) All (no value) (units unknown ) (unknown) Result panel 309 (unknown) (no date) (unknown) All (no value) (units unknown ) (unknown) Result panel 310 (unknown) (no date) (unknown) All (no value) (units unknown ) (unknown) Result panel 311 (unknown) (no date) (unknown) All (no value) (units unknown ) (unknown) Result panel 312 (unknown) (no date) (unknown) All (no value) (units unknown ) (unknown) Result panel 313 (unknown) (no date) (unknown) All (no value) (units unknown ) (unknown) Result panel 314 (unknown) (no date) (unknown) All (no value) (units unknown ) (unknown) Result panel 315 (unknown) (no date) (unknown) All (no value) (units unknown ) (unknown) Result panel 316 (unknown) (no date) (unknown) All (no value) (units unknown ) (unknown) Result panel 317 (unknown) (no date) (unknown) All (no value) (units unknown ) (unknown) Result panel 318 (unknown) (no date) (unknown) All (no value) (units unknown ) (unknown) Result panel 319 (unknown) (no date) (unknown) All (no value) (units unknown ) (unknown) Result panel 320 (unknown) (no date) (unknown) All (no value) (units unknown ) (unknown) Result panel 321 (unknown) (no date) (unknown) All (no value) (units unknown ) (unknown) Result panel 322 (unknown) (no date) (unknown) All (no value) (units unknown ) (unknown) Result panel 323 (unknown) (no date) (unknown) All (no value) (units unknown ) (unknown) Result panel 324 (unknown) (no date) (unknown) All (no value) (units unknown ) (unknown) Result panel 325 (unknown) (no date) (unknown) All (no value) (units unknown ) (unknown) Result panel 326 (unknown) (no date) (unknown) All (no value) (units unknown ) (unknown) Result panel 327 (unknown) (no date) (unknown) All (no value) (units unknown ) (unknown) Result panel 328 (unknown) (no date) (unknown) All (no value) (units unknown ) (unknown) Result panel 329 (unknown) (no date) (unknown) All (no value) (units unknown ) (unknown) Result panel 330 (unknown) (no date) (unknown) All (no value) (units unknown ) (unknown) Result panel 331 (unknown) (no date) (unknown) All (no value) (units unknown ) (unknown) Result panel 332 (unknown) (no date) (unknown) All (no value) (units unknown ) (unknown) Result panel 333 (unknown) (no date) (unknown) All (no value) (units unknown ) (unknown) Result panel 334 (unknown) (no date) (unknown) All (no value) (units unknown ) (unknown) Result panel 335 (unknown) (no date) (unknown) All (no value) (units unknown ) (unknown) Result panel 336 (unknown) (no date) (unknown) All (no value) (units unknown ) (unknown) Result panel 337 (unknown) (no date) (unknown) All (no value) (units unknown ) (unknown) Result panel 338 (unknown) (no date) (unknown) All (no value) (units unknown ) (unknown) Result panel 339 (unknown) (no date) (unknown) All (no value) (units unknown ) (unknown) Result panel 340 (unknown) (no date) (unknown) All (no value) (units unknown ) (unknown) Result panel 341 (unknown) (no date) (unknown) All (no value) (units unknown ) (unknown) Result panel 342 (unknown) (no date) (unknown) All (no value) (units unknown ) (unknown) Result panel 343 (unknown) (no date) (unknown) All (no value) (units unknown ) (unknown) Result panel 344 (unknown) (no date) (unknown) All (no value) (units unknown ) (unknown) Result panel 345 (unknown) (no date) (unknown) All (no value) (units unknown ) (unknown) Result panel 346 (unknown) (no date) (unknown) All (no value) (units unknown ) (unknown) Result panel 347 (unknown) (no date) (unknown) All (no value) (units unknown ) (unknown) Result panel 348 (unknown) (no date) (unknown) All (no value) (units unknown ) (unknown) Result panel 349 (unknown) (no date) (unknown) All (no value) (units unknown ) (unknown) Result panel 350 (unknown) (no date) (unknown) All (no value) (units unknown ) (unknown) Result panel 351 (unknown) (no date) (unknown) All (no value) (units unknown ) (unknown) Result panel 352 (unknown) (no date) (unknown) All (no value) (units unknown ) (unknown) Result panel 353 (unknown) (no date) (unknown) All (no value) (units unknown ) (unknown) Result panel 354 (unknown) (no date) (unknown) All (no value) (units unknown ) (unknown) Result panel 355 (unknown) (no date) (unknown) All (no value) (units unknown ) (unknown) Result panel 356 (unknown) (no date) (unknown) All (no value) (units unknown ) (unknown) Result panel 357 (unknown) (no date) (unknown) All (no value) (units unknown ) (unknown) Result panel 358 (unknown) (no date) (unknown) All (no value) (units unknown ) (unknown) Result panel 359 (unknown) (no date) (unknown) All (no value) (units unknown ) (unknown) Result panel 360 (unknown) (no date) (unknown) All (no value) (units unknown ) (unknown) Result panel 361 (unknown) (no date) (unknown) All (no value) (units unknown ) (unknown) Result panel 362 (unknown) (no date) (unknown) All (no value) (units unknown ) (unknown) Result panel 363 (unknown) (no date) (unknown) All (no value) (units unknown ) (unknown) Result panel 364 (unknown) (no date) (unknown) All (no value) (units unknown ) (unknown) Result panel 365 (unknown) (no date) (unknown) All (no value) (units unknown ) (unknown) Result panel 366 (unknown) (no date) (unknown) All (no value) (units unknown ) (unknown) Result panel 367 (unknown) (no date) (unknown) All (no value) (units unknown ) (unknown) Result panel 368 (unknown) (no date) (unknown) All (no value) (units unknown ) (unknown) Result panel 369 (unknown) (no date) (unknown) All (no value) (units unknown ) (unknown) Result panel 370 (unknown) (no date) (unknown) All (no value) (units unknown ) (unknown) Result panel 371 (unknown) (no date) (unknown) All (no value) (units unknown ) (unknown) Result panel 372 (unknown) (no date) (unknown) All (no value) (units unknown ) (unknown) Result panel 373 (unknown) (no date) (unknown) All (no value) (units unknown ) (unknown) Result panel 374 (unknown) (no date) (unknown) All (no value) (units unknown ) (unknown) Result panel 375 (unknown) (no date) (unknown) All (no value) (units unknown ) (unknown) Result panel 376 (unknown) (no date) (unknown) All (no value) (units unknown ) (unknown) Result panel 377 (unknown) (no date) (unknown) All (no value) (units unknown ) (unknown) Result panel 378 (unknown) (no date) (unknown) All (no value) (units unknown ) (unknown) Result panel 379 (unknown) (no date) (unknown) All (no value) (units unknown ) (unknown) Result panel 380 (unknown) (no date) (unknown) All (no value) (units unknown ) (unknown) Result panel 381 (unknown) (no date) (unknown) All (no value) (units unknown ) (unknown) Result panel 382 (unknown) (no date) (unknown) All (no value) (units unknown ) (unknown) Result panel 383 (unknown) (no date) (unknown) All (no value) (units unknown ) (unknown) Result panel 384 (unknown) (no date) (unknown) All (no value) (units unknown ) (unknown) Result panel 385 (unknown) (no date) (unknown) All (no value) (units unknown ) (unknown) Result panel 386 (unknown) (no date) (unknown) All (no value) (units unknown ) (unknown) Result panel 387 (unknown) (no date) (unknown) All (no value) (units unknown ) (unknown) Result panel 388 (unknown) (no date) (unknown) All (no value) (units unknown ) (unknown) Result panel 389 (unknown) (no date) (unknown) All (no value) (units unknown ) (unknown) Result panel 390 (unknown) (no date) (unknown) All (no value) (units unknown ) (unknown) Result panel 391 (unknown) (no date) (unknown) All (no value) (units unknown ) (unknown) Result panel 392 (unknown) (no date) (unknown) All (no value) (units unknown ) (unknown) Result panel 393 (unknown) (no date) (unknown) All (no value) (units unknown ) (unknown) Result panel 394 (unknown) (no date) (unknown) All (no value) (units unknown ) (unknown) Result panel 395 (unknown) (no date) (unknown) All (no value) (units unknown ) (unknown) Result panel 396 (unknown) (no date) (unknown) All (no value) (units unknown ) (unknown) Result panel 397 (unknown) (no date) (unknown) All (no value) (units unknown ) (unknown) Result panel 398 (unknown) (no date) (unknown) All (no value) (units unknown ) (unknown) Result panel 399 (unknown) (no date) (unknown) All (no value) (units unknown ) (unknown) Result panel 400 (unknown) (no date) (unknown) All (no value) (units unknown ) (unknown) Result panel 401 (unknown) (no date) (unknown) All (no value) (units unknown ) (unknown) Result panel 402 (unknown) (no date) (unknown) All (no value) (units unknown ) (unknown) Result panel 403 (unknown) (no date) (unknown) All (no value) (units unknown ) (unknown) Result panel 404 (unknown) (no date) (unknown) All (no value) (units unknown ) (unknown) Result panel 405 (unknown) (no date) (unknown) All (no value) (units unknown ) (unknown) Result panel 406 (unknown) (no date) (unknown) All (no value) (units unknown ) (unknown) Result panel 407 (unknown) (no date) (unknown) All (no value) (units unknown ) (unknown) Result panel 408 (unknown) (no date) (unknown) All (no value) (units unknown ) (unknown) Result panel 409 (unknown) (no date) (unknown) All (no value) (units unknown ) (unknown) Result panel 410 (unknown) (no date) (unknown) All (no value) (units unknown ) (unknown) Result panel 411 (unknown) (no date) (unknown) All (no value) (units unknown ) (unknown) Result panel 412 (unknown) (no date) (unknown) All (no value) (units unknown ) (unknown) Result panel 413 (unknown) (no date) (unknown) All (no value) (units unknown ) (unknown) Result panel 414 (unknown) (no date) (unknown) All (no value) (units unknown ) (unknown) Result panel 415 (unknown) (no date) (unknown) All (no value) (units unknown ) (unknown) Result panel 416 (unknown) (no date) (unknown) All (no value) (units unknown ) (unknown) Result panel 417 (unknown) (no date) (unknown) All (no value) (units unknown ) (unknown) Result panel 418 (unknown) (no date) (unknown) All (no value) (units unknown ) (unknown) Result panel 419 (unknown) (no date) (unknown) All (no value) (units unknown ) (unknown) Result panel 420 (unknown) (no date) (unknown) All (no value) (units unknown ) (unknown) Result panel 421 (unknown) (no date) (unknown) All (no value) (units unknown ) (unknown) Result panel 422 (unknown) (no date) (unknown) All (no value) (units unknown ) (unknown) Result panel 423 (unknown) (no date) (unknown) All (no value) (units unknown ) (unknown) Result panel 424 (unknown) (no date) (unknown) All (no value) (units unknown ) (unknown) Result panel 425 (unknown) (no date) (unknown) All (no value) (units unknown ) (unknown) Result panel 426 (unknown) (no date) (unknown) All (no value) (units unknown ) (unknown) Result panel 427 (unknown) (no date) (unknown) All (no value) (units unknown ) (unknown) Result panel 428 (unknown) (no date) (unknown) All (no value) (units unknown ) (unknown) Result panel 429 (unknown) (no date) (unknown) All (no value) (units unknown ) (unknown) Result panel 430 (unknown) (no date) (unknown) All (no value) (units unknown ) (unknown) Result panel 431 (unknown) (no date) (unknown) All (no value) (units unknown ) (unknown) Result panel 432 (unknown) (no date) (unknown) All (no value) (units unknown ) (unknown) Result panel 433 (unknown) (no date) (unknown) All (no value) (units unknown ) (unknown) Result panel 434 (unknown) (no date) (unknown) All (no value) (units unknown ) (unknown) Result panel 435 (unknown) (no date) (unknown) All (no value) (units unknown ) (unknown) Result panel 436 (unknown) (no date) (unknown) All (no value) (units unknown ) (unknown) Result panel 437 (unknown) (no date) (unknown) All (no value) (units unknown ) (unknown) Result panel 438 (unknown) (no date) (unknown) All (no value) (units unknown ) (unknown) Result panel 439 (unknown) (no date) (unknown) All (no value) (units unknown ) (unknown) Result panel 440 (unknown) (no date) (unknown) All (no value) (units unknown ) (unknown) Result panel 441 (unknown) (no date) (unknown) All (no value) (units unknown ) (unknown) Result panel 442 (unknown) (no date) (unknown) All (no value) (units unknown ) (unknown) Result panel 443 (unknown) (no date) (unknown) All (no value) (units unknown ) (unknown) Result panel 444 (unknown) (no date) (unknown) All (no value) (units unknown ) (unknown) Result panel 445 (unknown) (no date) (unknown) All (no value) (units unknown ) (unknown) Result panel 446 (unknown) (no date) (unknown) All (no value) (units unknown ) (unknown) Result panel 447 (unknown) (no date) (unknown) All (no value) (units unknown ) (unknown) Result panel 448 (unknown) (no date) (unknown) All (no value) (units unknown ) (unknown) Result panel 449 (unknown) (no date) (unknown) All (no value) (units unknown ) (unknown) Result panel 450 (unknown) (no date) (unknown) All (no value) (units unknown ) (unknown) Result panel 451 (unknown) (no date) (unknown) All (no value) (units unknown ) (unknown) Result panel 452 (unknown) (no date) (unknown) All (no value) (units unknown ) (unknown) Result panel 453 (unknown) (no date) (unknown) All (no value) (units unknown ) (unknown) Result panel 454 (unknown) (no date) (unknown) All (no value) (units unknown ) (unknown) Result panel 455 (unknown) (no date) (unknown) All (no value) (units unknown ) (unknown) Result panel 456 (unknown) (no date) (unknown) All (no value) (units unknown ) (unknown) Result panel 457 (unknown) (no date) (unknown) All (no value) (units unknown ) (unknown) Result panel 458 (unknown) (no date) (unknown) All (no value) (units unknown ) (unknown) Result panel 459 (unknown) (no date) (unknown) All (no value) (units unknown ) (unknown) Result panel 460 (unknown) (no date) (unknown) All (no value) (units unknown ) (unknown) Result panel 461 (unknown) (no date) (unknown) All (no value) (units unknown ) (unknown) Result panel 462 (unknown) (no date) (unknown) All (no value) (units unknown ) (unknown) Result panel 463 (unknown) (no date) (unknown) All (no value) (units unknown ) (unknown) Result panel 464 (unknown) (no date) (unknown) All (no value) (units unknown ) (unknown) Result panel 465 (unknown) (no date) (unknown) All (no value) (units unknown ) (unknown) Result panel 466 (unknown) (no date) (unknown) All (no value) (units unknown ) (unknown) Result panel 467 (unknown) (no date) (unknown) All (no value) (units unknown ) (unknown) Result panel 468 (unknown) (no date) (unknown) All (no value) (units unknown ) (unknown) Result panel 469 (unknown) (no date) (unknown) All (no value) (units unknown ) (unknown) Result panel 470 (unknown) (no date) (unknown) All (no value) (units unknown ) (unknown) Result panel 471 (unknown) (no date) (unknown) All (no value) (units unknown ) (unknown) Result panel 472 (unknown) (no date) (unknown) All (no value) (units unknown ) (unknown) Result panel 473 (unknown) (no date) (unknown) All (no value) (units unknown ) (unknown) Result panel 474 (unknown) (no date) (unknown) All (no value) (units unknown ) (unknown) Result panel 475 (unknown) (no date) (unknown) All (no value) (units unknown ) (unknown) Result panel 476 (unknown) (no date) (unknown) All (no value) (units unknown ) (unknown) Result panel 477 (unknown) (no date) (unknown) All (no value) (units unknown ) (unknown) Result panel 478 (unknown) (no date) (unknown) All (no value) (units unknown ) (unknown) Result panel 479 (unknown) (no date) (unknown) All (no value) (units unknown ) (unknown) Result panel 480 (unknown) (no date) (unknown) All (no value) (units unknown ) (unknown) Result panel 481 (unknown) (no date) (unknown) All (no value) (units unknown ) (unknown) Result panel 482 (unknown) (no date) (unknown) All (no value) (units unknown ) (unknown) Result panel 483 (unknown) (no date) (unknown) All (no value) (units unknown ) (unknown) Result panel 484 (unknown) (no date) (unknown) All (no value) (units unknown ) (unknown) Result panel 485 (unknown) (no date) (unknown) All (no value) (units unknown ) (unknown) Result panel 486 (unknown) (no date) (unknown) All (no value) (units unknown ) (unknown) Result panel 487 (unknown) (no date) (unknown) All (no value) (units unknown ) (unknown) Result panel 488 (unknown) (no date) (unknown) All (no value) (units unknown ) (unknown) Result panel 489 (unknown) (no date) (unknown) All (no value) (units unknown ) (unknown) Result panel 490 (unknown) (no date) (unknown) All (no value) (units unknown ) (unknown) Result panel 491 (unknown) (no date) (unknown) All (no value) (units unknown ) (unknown) Result panel 492 (unknown) (no date) (unknown) All (no value) (units unknown ) (unknown) Result panel 493 (unknown) (no date) (unknown) All (no value) (units unknown ) (unknown) Result panel 494 (unknown) (no date) (unknown) All (no value) (units unknown ) (unknown) Result panel 495 (unknown) (no date) (unknown) All (no value) (units unknown ) (unknown) Result panel 496 (unknown) (no date) (unknown) All (no value) (units unknown ) (unknown) Result panel 497 (unknown) (no date) (unknown) All (no value) (units unknown ) (unknown) Result panel 498 (unknown) (no date) (unknown) All (no value) (units unknown ) (unknown) Result panel 499 (unknown) (no date) (unknown) All (no value) (units unknown ) (unknown) Result panel 500 (unknown) (no date) (unknown) All (no value) (units unknown ) (unknown) Result panel 501 (unknown) (no date) (unknown) All (no value) (units unknown ) (unknown) Result panel 502 (unknown) (no date) (unknown) All (no value) (units unknown ) (unknown) Result panel 503 (unknown) (no date) (unknown) All (no value) (units unknown ) (unknown) Result panel 504 (unknown) (no date) (unknown) All (no value) (units unknown ) (unknown) Result panel 505 (unknown) (no date) (unknown) All (no value) (units unknown ) (unknown) Result panel 506 (unknown) (no date) (unknown) All (no value) (units unknown ) (unknown) Result panel 507 (unknown) (no date) (unknown) All (no value) (units unknown ) (unknown) Result panel 508 (unknown) (no date) (unknown) All (no value) (units unknown ) (unknown) Result panel 509 (unknown) (no date) (unknown) All (no value) (units unknown ) (unknown) Result panel 510 (unknown) (no date) (unknown) All (no value) (units unknown ) (unknown) Result panel 511 (unknown) (no date) (unknown) All (no value) (units unknown ) (unknown) Result panel 512 (unknown) (no date) (unknown) All (no value) (units unknown ) (unknown) Result panel 513 (unknown) (no date) (unknown) All (no value) (units unknown ) (unknown) Result panel 514 (unknown) (no date) (unknown) All (no value) (units unknown ) (unknown) Result panel 515 (unknown) (no date) (unknown) All (no value) (units unknown ) (unknown) Result panel 516 (unknown) (no date) (unknown) All (no value) (units unknown ) (unknown) Result panel 517 (unknown) (no date) (unknown) All (no value) (units unknown ) (unknown) Result panel 518 (unknown) (no date) (unknown) All (no value) (units unknown ) (unknown) Result panel 519 (unknown) (no date) (unknown) All (no value) (units unknown ) (unknown) Result panel 520 (unknown) (no date) (unknown) All (no value) (units unknown ) (unknown) Result panel 521 (unknown) (no date) (unknown) All (no value) (units unknown ) (unknown) Result panel 522 (unknown) (no date) (unknown) All (no value) (units unknown ) (unknown) Result panel 523 (unknown) (no date) (unknown) All (no value) (units unknown ) (unknown) Result panel 524 (unknown) (no date) (unknown) All (no value) (units unknown ) (unknown) Result panel 525 (unknown) (no date) (unknown) All (no value) (units unknown ) (unknown) Result panel 526 (unknown) (no date) (unknown) All (no value) (units unknown ) (unknown) Result panel 527 (unknown) (no date) (unknown) All (no value) (units unknown ) (unknown) Result panel 528 (unknown) (no date) (unknown) All (no value) (units unknown ) (unknown) Result panel 529 (unknown) (no date) (unknown) All (no value) (units unknown ) (unknown) Result panel 530 (unknown) (no date) (unknown) All (no value) (units unknown ) (unknown) Result panel 531 (unknown) (no date) (unknown) All (no value) (units unknown ) (unknown) Result panel 532 (unknown) (no date) (unknown) All (no value) (units unknown ) (unknown) Result panel 533 (unknown) (no date) (unknown) All (no value) (units unknown ) (unknown) Result panel 534 (unknown) (no date) (unknown) All (no value) (units unknown ) (unknown) Result panel 535 (unknown) (no date) (unknown) All (no value) (units unknown ) (unknown) Result panel 536 (unknown) (no date) (unknown) All (no value) (units unknown ) (unknown) Result panel 537 (unknown) (no date) (unknown) All (no value) (units unknown ) (unknown) Result panel 538 (unknown) (no date) (unknown) All (no value) (units unknown ) (unknown) Result panel 539 (unknown) (no date) (unknown) All (no value) (units unknown ) (unknown) Result panel 540 (unknown) (no date) (unknown) All (no value) (units unknown ) (unknown) Result panel 541 (unknown) (no date) (unknown) All (no value) (units unknown ) (unknown) Result panel 542 (unknown) (no date) (unknown) All (no value) (units unknown ) (unknown) Result panel 543 (unknown) (no date) (unknown) All (no value) (units unknown ) (unknown) Result panel 544 (unknown) (no date) (unknown) All (no value) (units unknown ) (unknown) Result panel 545 (unknown) (no date) (unknown) All (no value) (units unknown ) (unknown) Result panel 546 (unknown) (no date) (unknown) All (no value) (units unknown ) (unknown) Result panel 547 (unknown) (no date) (unknown) All (no value) (units unknown ) (unknown) Result panel 548 (unknown) (no date) (unknown) All (no value) (units unknown ) (unknown) Result panel 549 (unknown) (no date) (unknown) All (no value) (units unknown ) (unknown) Result panel 550 (unknown) (no date) (unknown) All (no value) (units unknown ) (unknown) Result panel 551 (unknown) (no date) (unknown) All (no value) (units unknown ) (unknown) Result panel 552 (unknown) (no date) (unknown) All (no value) (units unknown ) (unknown) Result panel 553 (unknown) (no date) (unknown) All (no value) (units unknown ) (unknown) Result panel 554 (unknown) (no date) (unknown) All (no value) (units unknown ) (unknown) Result panel 555 (unknown) (no date) (unknown) All (no value) (units unknown ) (unknown) Result panel 556 (unknown) (no date) (unknown) All (no value) (units unknown ) (unknown) Result panel 557 (unknown) (no date) (unknown) All (no value) (units unknown ) (unknown) Result panel 558 (unknown) (no date) (unknown) All (no value) (units unknown ) (unknown) Result panel 559 (unknown) (no date) (unknown) All (no value) (units unknown ) (unknown) Result panel 560 (unknown) (no date) (unknown) All (no value) (units unknown ) (unknown) Result panel 561 (unknown) (no date) (unknown) All (no value) (units unknown ) (unknown) Result panel 562 (unknown) (no date) (unknown) All (no value) (units unknown ) (unknown) Result panel 563 (unknown) (no date) (unknown) All (no value) (units unknown ) (unknown) Result panel 564 (unknown) (no date) (unknown) All (no value) (units unknown ) (unknown) Result panel 565 (unknown) (no date) (unknown) All (no value) (units unknown ) (unknown) Result panel 566 (unknown) (no date) (unknown) All (no value) (units unknown ) (unknown) Result panel 567 (unknown) (no date) (unknown) All (no value) (units unknown ) (unknown) Result panel 568 (unknown) (no date) (unknown) All (no value) (units unknown ) (unknown) Result panel 569 (unknown) (no date) (unknown) All (no value) (units unknown ) (unknown) Result panel 570 (unknown) (no date) (unknown) All (no value) (units unknown ) (unknown) Result panel 571 (unknown) (no date) (unknown) All (no value) (units unknown ) (unknown) Result panel 572 (unknown) (no date) (unknown) All (no value) (units unknown ) (unknown) Result panel 573 (unknown) (no date) (unknown) All (no value) (units unknown ) (unknown) Result panel 574 (unknown) (no date) (unknown) All (no value) (units unknown ) (unknown) Result panel 575 (unknown) (no date) (unknown) All (no value) (units unknown ) (unknown) Result panel 576 (unknown) (no date) (unknown) All (no value) (units unknown ) (unknown) Result panel 577 (unknown) (no date) (unknown) All (no value) (units unknown ) (unknown) Result panel 578 (unknown) (no date) (unknown) All (no value) (units unknown ) (unknown) Result panel 579 (unknown) (no date) (unknown) All (no value) (units unknown ) (unknown) Result panel 580 (unknown) (no date) (unknown) All (no value) (units unknown ) (unknown) Result panel 581 (unknown) (no date) (unknown) All (no value) (units unknown ) (unknown) Result panel 582 (unknown) (no date) (unknown) All (no value) (units unknown ) (unknown) Result panel 583 (unknown) (no date) (unknown) All (no value) (units unknown ) (unknown) Result panel 584 (unknown) (no date) (unknown) All (no value) (units unknown ) (unknown) Result panel 585 (unknown) (no date) (unknown) All (no value) (units unknown ) (unknown) Result panel 586 (unknown) (no date) (unknown) All (no value) (units unknown ) (unknown) Result panel 587 (unknown) (no date) (unknown) All (no value) (units unknown ) (unknown) Result panel 588 (unknown) (no date) (unknown) All (no value) (units unknown ) (unknown) Result panel 589 (unknown) (no date) (unknown) All (no value) (units unknown ) (unknown) Result panel 590 (unknown) (no date) (unknown) All (no value) (units unknown ) (unknown) Result panel 591 (unknown) (no date) (unknown) All (no value) (units unknown ) (unknown) Result panel 592 (unknown) (no date) (unknown) All (no value) (units unknown ) (unknown) Result panel 593 (unknown) (no date) (unknown) All (no value) (units unknown ) (unknown) Result panel 594 (unknown) (no date) (unknown) All (no value) (units unknown ) (unknown) Result panel 595 (unknown) (no date) (unknown) All (no value) (units unknown ) (unknown) Result panel 596 (unknown) (no date) (unknown) All (no value) (units unknown ) (unknown) Result panel 597 (unknown) (no date) (unknown) All (no value) (units unknown ) (unknown) Result panel 598 (unknown) (no date) (unknown) All (no value) (units unknown ) (unknown) Result panel 599 (unknown) (no date) (unknown) All (no value) (units unknown ) (unknown) Result panel 600 (unknown) (no date) (unknown) All (no value) (units unknown ) (unknown) Result panel 601 (unknown) (no date) (unknown) All (no value) (units unknown ) (unknown) Result panel 602 (unknown) (no date) (unknown) All (no value) (units unknown ) (unknown) Result panel 603 (unknown) (no date) (unknown) All (no value) (units unknown ) (unknown) Result panel 604 (unknown) (no date) (unknown) All (no value) (units unknown ) (unknown) Result panel 605 (unknown) (no date) (unknown) All (no value) (units unknown ) (unknown) Result panel 606 (unknown) (no date) (unknown) All (no value) (units unknown ) (unknown) Result panel 607 (unknown) (no date) (unknown) All (no value) (units unknown ) (unknown) Result panel 608 (unknown) (no date) (unknown) All (no value) (units unknown ) (unknown) Result panel 609 (unknown) (no date) (unknown) All (no value) (units unknown ) (unknown) Result panel 610 (unknown) (no date) (unknown) All (no value) (units unknown ) (unknown) Result panel 611 (unknown) (no date) (unknown) All (no value) (units unknown ) (unknown) Result panel 612 (unknown) (no date) (unknown) All (no value) (units unknown ) (unknown) Result panel 613 (unknown) (no date) (unknown) All (no value) (units unknown ) (unknown) Result panel 614 (unknown) (no date) (unknown) All (no value) (units unknown ) (unknown) Result panel 615 (unknown) (no date) (unknown) All (no value) (units unknown ) (unknown) Result panel 616 (unknown) (no date) (unknown) All (no value) (units unknown ) (unknown) Result panel 617 (unknown) (no date) (unknown) All (no value) (units unknown ) (unknown) Result panel 618 (unknown) (no date) (unknown) All (no value) (units unknown ) (unknown) Result panel 619 (unknown) (no date) (unknown) All (no value) (units unknown ) (unknown) Result panel 620 (unknown) (no date) (unknown) All (no value) (units unknown ) (unknown) Result panel 621 (unknown) (no date) (unknown) All (no value) (units unknown ) (unknown) Result panel 622 (unknown) (no date) (unknown) All (no value) (units unknown ) (unknown) Result panel 623 (unknown) (no date) (unknown) All (no value) (units unknown ) (unknown) Result panel 624 (unknown) (no date) (unknown) All (no value) (units unknown ) (unknown) Result panel 625 (unknown) (no date) (unknown) All (no value) (units unknown ) (unknown) Result panel 626 (unknown) (no date) (unknown) All (no value) (units unknown ) (unknown) Result panel 627 (unknown) (no date) (unknown) All (no value) (units unknown ) (unknown) Result panel 628 (unknown) (no date) (unknown) All (no value) (units unknown ) (unknown) Result panel 629 (unknown) (no date) (unknown) All (no value) (units unknown ) (unknown) Result panel 630 (unknown) (no date) (unknown) All (no value) (units unknown ) (unknown) Result panel 631 (unknown) (no date) (unknown) All (no value) (units unknown ) (unknown) Result panel 632 (unknown) (no date) (unknown) All (no value) (units unknown ) (unknown) Result panel 633 (unknown) (no date) (unknown) All (no value) (units unknown ) (unknown) Result panel 634 (unknown) (no date) (unknown) All (no value) (units unknown ) (unknown) Result panel 635 (unknown) (no date) (unknown) All (no value) (units unknown ) (unknown) Result panel 636 (unknown) (no date) (unknown) All (no value) (units unknown ) (unknown) Result panel 637 (unknown) (no date) (unknown) All (no value) (units unknown ) (unknown) Result panel 638 (unknown) (no date) (unknown) All (no value) (units unknown ) (unknown) Result panel 639 (unknown) (no date) (unknown) All (no value) (units unknown ) (unknown) Result panel 640 (unknown) (no date) (unknown) All (no value) (units unknown ) (unknown) Result panel 641 (unknown) (no date) (unknown) All (no value) (units unknown ) (unknown) Result panel 642 (unknown) (no date) (unknown) All (no value) (units unknown ) (unknown) Result panel 643 (unknown) (no date) (unknown) All (no value) (units unknown ) (unknown) Result panel 644 (unknown) (no date) (unknown) All (no value) (units unknown ) (unknown) Result panel 645 (unknown) (no date) (unknown) All (no value) (units unknown ) (unknown) Result panel 646 (unknown) (no date) (unknown) All (no value) (units unknown ) (unknown) Result panel 647 (unknown) (no date) (unknown) All (no value) (units unknown ) (unknown) Result panel 648 (unknown) (no date) (unknown) All (no value) (units unknown ) (unknown) Result panel 649 (unknown) (no date) (unknown) All (no value) (units unknown ) (unknown) Result panel 650 (unknown) (no date) (unknown) All (no value) (units unknown ) (unknown) Result panel 651 (unknown) (no date) (unknown) All (no value) (units unknown ) (unknown) Result panel 652 (unknown) (no date) (unknown) All (no value) (units unknown ) (unknown) Result panel 653 (unknown) (no date) (unknown) All (no value) (units unknown ) (unknown) Result panel 654 (unknown) (no date) (unknown) All (no value) (units unknown ) (unknown) Result panel 655 (unknown) (no date) (unknown) All (no value) (units unknown ) (unknown) Result panel 656 (unknown) (no date) (unknown) All (no value) (units unknown ) (unknown) Result panel 657 (unknown) (no date) (unknown) All (no value) (units unknown ) (unknown) Result panel 658 (unknown) (no date) (unknown) All (no value) (units unknown ) (unknown) Result panel 659 (unknown) (no date) (unknown) All (no value) (units unknown ) (unknown) Result panel 660 (unknown) (no date) (unknown) All (no value) (units unknown ) (unknown) Result panel 661 (unknown) (no date) (unknown) All (no value) (units unknown ) (unknown) Result panel 662 (unknown) (no date) (unknown) All (no value) (units unknown ) (unknown) Result panel 663 (unknown) (no date) (unknown) All (no value) (units unknown ) (unknown) Result panel 664 (unknown) (no date) (unknown) All (no value) (units unknown ) (unknown) Result panel 665 (unknown) (no date) (unknown) All (no value) (units unknown ) (unknown) Result panel 666 (unknown) (no date) (unknown) All (no value) (units unknown ) (unknown) Result panel 667 (unknown) (no date) (unknown) All (no value) (units unknown ) (unknown) Result panel 668 (unknown) (no date) (unknown) All (no value) (units unknown ) (unknown) Result panel 669 (unknown) (no date) (unknown) All (no value) (units unknown ) (unknown) Result panel 670 (unknown) (no date) (unknown) All (no value) (units unknown ) (unknown) Result panel 671 (unknown) (no date) (unknown) All (no value) (units unknown ) (unknown) Result panel 672 (unknown) (no date) (unknown) All (no value) (units unknown ) (unknown) Result panel 673 (unknown) (no date) (unknown) All (no value) (units unknown ) (unknown) Result panel 674 (unknown) (no date) (unknown) All (no value) (units unknown ) (unknown) Result panel 675 (unknown) (no date) (unknown) All (no value) (units unknown ) (unknown) Result panel 676 (unknown) (no date) (unknown) All (no value) (units unknown ) (unknown) Result panel 677 (unknown) (no date) (unknown) All (no value) (units unknown ) (unknown) Result panel 678 (unknown) (no date) (unknown) All (no value) (units unknown ) (unknown) Result panel 679 (unknown) (no date) (unknown) All (no value) (units unknown ) (unknown) Result panel 680 (unknown) (no date) (unknown) All (no value) (units unknown ) (unknown) Result panel 681 (unknown) (no date) (unknown) All (no value) (units unknown ) (unknown) Result panel 682 (unknown) (no date) (unknown) All (no value) (units unknown ) (unknown) Result panel 683 (unknown) (no date) (unknown) All (no value) (units unknown ) (unknown) Result panel 684 (unknown) (no date) (unknown) All (no value) (units unknown ) (unknown) Result panel 685 (unknown) (no date) (unknown) All (no value) (units unknown ) (unknown) Result panel 686 (unknown) (no date) (unknown) All (no value) (units unknown ) (unknown) Result panel 687 (unknown) (no date) (unknown) All (no value) (units unknown ) (unknown) Result panel 688 (unknown) (no date) (unknown) All (no value) (units unknown ) (unknown) Result panel 689 (unknown) (no date) (unknown) All (no value) (units unknown ) (unknown) Result panel 690 (unknown) (no date) (unknown) All (no value) (units unknown ) (unknown) Result panel 691 (unknown) (no date) (unknown) All (no value) (units unknown ) (unknown) Result panel 692 (unknown) (no date) (unknown) All (no value) (units unknown ) (unknown) Result panel 693 (unknown) (no date) (unknown) All (no value) (units unknown ) (unknown) Result panel 694 (unknown) (no date) (unknown) All (no value) (units unknown ) (unknown) Result panel 695 (unknown) (no date) (unknown) All (no value) (units unknown ) (unknown) Result panel 696 (unknown) (no date) (unknown) All (no value) (units unknown ) (unknown) Result panel 697 (unknown) (no date) (unknown) All (no value) (units unknown ) (unknown) Result panel 698 (unknown) (no date) (unknown) All (no value) (units unknown ) (unknown) Result panel 699 (unknown) (no date) (unknown) All (no value) (units unknown ) (unknown) Result panel 700 (unknown) (no date) (unknown) All (no value) (units unknown ) (unknown) Result panel 701 (unknown) (no date) (unknown) All (no value) (units unknown ) (unknown) Result panel 702 (unknown) (no date) (unknown) All (no value) (units unknown ) (unknown) Result panel 703 (unknown) (no date) (unknown) All (no value) (units unknown ) (unknown) Result panel 704 (unknown) (no date) (unknown) All (no value) (units unknown ) (unknown) Result panel 705 (unknown) (no date) (unknown) All (no value) (units unknown ) (unknown) Result panel 706 (unknown) (no date) (unknown) All (no value) (units unknown ) (unknown) Result panel 707 (unknown) (no date) (unknown) All (no value) (units unknown ) (unknown) Result panel 708 (unknown) (no date) (unknown) All (no value) (units unknown ) (unknown) Result panel 709 (unknown) (no date) (unknown) All (no value) (units unknown ) (unknown) Result panel 710 (unknown) (no date) (unknown) All (no value) (units unknown ) (unknown) Result panel 711 (unknown) (no date) (unknown) All (no value) (units unknown ) (unknown) Result panel 712 (unknown) (no date) (unknown) All (no value) (units unknown ) (unknown) Result panel 713 (unknown) (no date) (unknown) All (no value) (units unknown ) (unknown) Result panel 714 (unknown) (no date) (unknown) All (no value) (units unknown ) (unknown) Result panel 715 (unknown) (no date) (unknown) All (no value) (units unknown ) (unknown) Result panel 716 (unknown) (no date) (unknown) All (no value) (units unknown ) (unknown) Result panel 717 (unknown) (no date) (unknown) All (no value) (units unknown ) (unknown) Result panel 718 (unknown) (no date) (unknown) All (no value) (units unknown ) (unknown) Result panel 719 (unknown) (no date) (unknown) All (no value) (units unknown ) (unknown) Result panel 720 (unknown) (no date) (unknown) All (no value) (units unknown ) (unknown) Result panel 721 (unknown) (no date) (unknown) All (no value) (units unknown ) (unknown) Result panel 722 (unknown) (no date) (unknown) All (no value) (units unknown ) (unknown) Result panel 723 (unknown) (no date) (unknown) All (no value) (units unknown ) (unknown) Result panel 724 (unknown) (no date) (unknown) All (no value) (units unknown ) (unknown) Result panel 725 (unknown) (no date) (unknown) All (no value) (units unknown ) (unknown) Result panel 726 (unknown) (no date) (unknown) All (no value) (units unknown ) (unknown) Result panel 727 (unknown) (no date) (unknown) All (no value) (units unknown ) (unknown) Result panel 728 (unknown) (no date) (unknown) All (no value) (units unknown ) (unknown) Result panel 729 (unknown) (no date) (unknown) All (no value) (units unknown ) (unknown) Result panel 730 (unknown) (no date) (unknown) All (no value) (units unknown ) (unknown) Result panel 731 (unknown) (no date) (unknown) All (no value) (units unknown ) (unknown) Result panel 732 (unknown) (no date) (unknown) All (no value) (units unknown ) (unknown) Result panel 733 (unknown) (no date) (unknown) All (no value) (units unknown ) (unknown) Result panel 734 (unknown) (no date) (unknown) All (no value) (units unknown ) (unknown) Result panel 735 (unknown) (no date) (unknown) All (no value) (units unknown ) (unknown) Result panel 736 (unknown) (no date) (unknown) All (no value) (units unknown ) (unknown) Result panel 737 (unknown) (no date) (unknown) All (no value) (units unknown ) (unknown) Result panel 738 (unknown) (no date) (unknown) All (no value) (units unknown ) (unknown) Result panel 739 (unknown) (no date) (unknown) All (no value) (units unknown ) (unknown) Result panel 740 (unknown) (no date) (unknown) All (no value) (units unknown ) (unknown) Result panel 741 (unknown) (no date) (unknown) All (no value) (units unknown ) (unknown) Result panel 742 (unknown) (no date) (unknown) All (no value) (units unknown ) (unknown) Result panel 743 (unknown) (no date) (unknown) All (no value) (units unknown ) (unknown) Result panel 744 (unknown) (no date) (unknown) All (no value) (units unknown ) (unknown) Social History No information. Vital Signs date measurement value units 2022-04-23 00:00 BMI 17.48 kg/m2 2022-04-23 00:00 BP_diastolic 70 mmHg 2022-04-23 00:00 BP_systolic 120 mmHg 2022-04-23 00:00 height_metric 157.48 cm 2022-04-23 00:00 height_standard 62 in 2022-04-23 00:00 temperature_metric 36.56 C 2022-04-23 00:00 temperature_standard 97.8 F 2022-04-23 00:00 weight_metric 43.18 kg 2022-04-23 00:00 weight_standard 95.2 lb 2022-04-29 00:00 BP_diastolic 60 mmHg 2022-04-29 00:00 BP_systolic 110 mmHg 2022-04-29 00:00 height_metric 157.48 cm 2022-04-29 00:00 height_standard 62 in 2022-04-29 00:00 temperature_metric 36.5 C 2022-04-29 00:00 temperature_standard 97.7 F 2022-05-20 00:00 BMI 18.25 kg/m2 2022-05-20 00:00 BP_diastolic 60 mmHg 2022-05-20 00:00 BP_systolic 108 mmHg 2022-05-20 00:00 height_metric 157.48 cm 2022-05-20 00:00 height_standard 62 in 2022-05-20 00:00 temperature_metric 36.28 C 2022-05-20 00:00 temperature_standard 97.3 F 2022-05-20 00:00 weight_metric 45.09 kg 2022-05-20 00:00 weight_standard 99.4 lb 2022-06-17 00:00 BMI 18.76 kg/m2 2022-06-17 00:00 BP_diastolic 60 mmHg 2022-06-17 00:00 BP_systolic 120 mmHg 2022-06-17 00:00 height_metric 157.48 cm 2022-06-17 00:00 height_standard 62 in 2022-06-17 00:00 temperature_metric 36.28 C 2022-06-17 00:00 temperature_standard 97.3 F 2022-06-17 00:00 weight_metric 46.36 kg 2022-06-17 00:00 weight_standard 102.2 lb 2022-07-09 00:00 BMI 19.05 kg/m2 2022-07-09 00:00 BP_diastolic 58 mmHg 2022-07-09 00:00 BP_systolic 124 mmHg 2022-07-09 00:00 height_metric 157.48 cm 2022-07-09 00:00 height_standard 62 in 2022-07-09 00:00 temperature_metric 36 C 2022-07-09 00:00 temperature_standard 96.8 F 2022-07-09 00:00 weight_metric 47.08 kg 2022-07-09 00:00 weight_standard 103.8 lb
[2022-07-22 12:04] LABS: BASOPHILS % (AUTO) 0.3 %; EOSINOPHILS # (AUTO) 0.2 10^3/uL (0.0-0.7); EOSINOPHILS % (AUTO) 1.6 %; LYMPHOCYTES # (AUTO) 2.9 10^3/uL (1.5-3.5); LYMPHOCYTES % (AUTO) 27.5 %; MEAN CORPUSCULAR HEMOGLOBIN 29.8 pg (27.0-31.0); MEAN CORPUSCULAR HGB CONC 34.1 g/dL (32.0-36.0); MEAN CORPUSCULAR VOLUME 87.2 fL (81.0-99.0); MEAN PLATELET VOLUME 8.3 fL (7.9-10.8); MONOCYTES # (AUTO) 0.8 10^3/uL (0.0-1.0); MONOCYTES % (AUTO) 7.5 %; NEUTROPHILS # (AUTO) 6.5 10^3/uL (1.5-6.6); NEUTROPHILS % (AUTO) 62.4 %; PLT - PLATELET COUNT 464 10^3/uL (130-450); RED CELL DISTRIBUTION WIDTH 12.5 % (12.0-15.0); WHITE BLOOD COUNT 10.5 x10^3/uL (4.8-10.8)
[2022-07-22 12:17] LABS: BILIRUBIN,URINE NEGATIVE (NEGATIVE); GLUCOSE, URINE (UA) NEGATIVE (NEGATIVE); KETONES,URINE (UA) NEGATIVE (NEGATIVE); LEUKOCYTE ESTERASE, URINE LARGE (NEGATIVE); NITRITE,URINE NEGATIVE (NEGATIVE); OCCULT BLOOD,URINE NEGATIVE (NEGATIVE); PH,URINE 6.5 PH (5.0-7.5); PROTEIN,URINE NEGATIVE (NEGATIVE); UROBILINOGEN,URINE 0.2 (NORMAL) E.U./dL (NORMAL)
[2022-07-22 12:18] LABS: ALBUMIN 4.2 g/dL (3.2-5.5); ALBUMIN/GLOBULIN RATIO 1.1 (1.0-2.2); BILIRUBIN,TOTAL 0.7 mg/dL (0.2-1.0); CALCIUM 9.5 mg/dL (8.5-10.3); CREATININE 0.5 mg/dL (0.4-1.0); POTASSIUM 4.3 mmol/L (3.5-5.0); TOTAL PROTEIN 8.2 g/dL (6.7-8.2)
[2022-07-22 12:19] LABS: CLARITY,URINE SL. CLOUDY (CLEAR)
[2022-07-22 12:24] LABS: BACTERIA,URINE Moderate /HPF (None Seen); RBC,URINE 0-5 /HPF (0-5); SQUAMOUS EPITHELIAL CELL,UR MANY Squamous (<= Few)
[2022-07-22] MEDS ORDERED: ASPIRIN CHEW 81 MG TABLET PO STA (13:43)
--- NOTE | 2022-07-22 13:43 | ED Physician Documentation ---
History of Present Illness - Stated complaint Stated Complaint: 28 WEEKS/LIGHTHEADED - Chief complaint Chief Complaint: General - Additonal information Additional information: History provided by patient. She is a fair historian. 22-year-old female presents to the emergency department for evaluation of being shaky, ringing in her ear and insomnia. She is G1, P0. Reportedly 28 weeks . Has been followed by our Dr. Parr. She was recently at [facility] and hospitalized for acute fentanyl addiction. While there she reports that she was getting Subutex 8 mg 4 times daily. She voluntarily left rehab on Wednesday due to" staffing issues" Since discharge she has been unable to sleep and she feels shaky with a headache. She was prescribed Seroquel 100 mg nightly which she has not taken. She was told to take the Subutex 8 mg once daily. She has taken Subutex 8 mg sublingual strips 3 times since leaving in-patient. She continues to have movement. Denies vaginal bleeding or loss of fluids. 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 : None HEENT: None Psych: Depression, Anxiety, Other Musculoskeletal: None Derm: None - Past Surgical History Past Surgical History: No - Present Medications Home Medications: Ambulatory Orders Medication Instructions Recorded Confirmed Buprenorphine HCl/Naloxone HCl 1.5 film SL DAILY 03/28/22 05/17/22 [Buprenorphine-Nalox 8-2Mg Film] Metoclopramide [Reglan] 5 mg PO DAILY PRN 05/17/22 05/17/22 Ondansetron Odt [Zofran Odt] 4 mg TL Q6H PRN #14 tablet 05/17/22 cephALEXin [Keflex] 500 mg PO BID #14 cap 07/22/22 - Allergies Allergies/Adverse Reactions: Allergies Allergy/AdvReac Type Severity Reaction Status Date / Time No Known Drug Allergies Allergy Verified 07/22/22 11:39 - Social History Does the pt smoke?: No Smoking Status: Never smoker Does the pt drink ETOH?: No Does the pt have substance abuse?: No - Immunizations Immunizations are current?: Yes - POLST Patient has POLST: No Results - Vitals Vitals: Vital Signs - 24 hr 07/22/22 07/22/22 11:32 14:08 Temperature 37.1 C Heart Rate 70 96 Respiratory 16 18 Rate Blood Pressure 110/79 123/74 O2 Saturation 96 97 Oxygen O2 Source Room air - EKG (time done) 1343 Rate: Rate (enter#) (92) Rhythm: NSR [place]: Normal Intervals: Normal OK Ischemia: T wave inversion (II-III (common in )) Compare to prior EKG: Changed from prior EKG Computer interpretation: Agree with computer - Labs Labs: Laboratory Tests 07/22/22 07/22/22 07/22/22 11:45 11:58 11:58 WBC 10.5 RBC 4.70 Hgb 14.0 Hct 41.0 MCV 87.2 MCH 29.8 MCHC 34.1 RDW 12.5 Plt Count 464 H MPV 8.3 Neut # (Auto) 6.5 Lymph # (Auto) 2.9 [place] # (Auto) 0.8 Eos # (Auto) 0.2 Baso # (Auto) 0.0 Absolute Nucleated RBC 0.00 Nucleated RBC % 0.0 Sodium 131 L Potassium 4.3 Chloride 99 L Carbon Dioxide 22 Anion Gap 10.0 BUN 11 Creatinine 0.5 Estimated GFR (MDRD) 152 Glucose 78 Calcium 9.5 Total Bilirubin 0.7 AST 18 ALT 17 Alkaline Phosphatase 126 H Total Protein 8.2 Albumin 4.2 Globulin 4.0 Albumin/Globulin Ratio 1.1 Lipase 74 H Urine Color YELLOW Urine Clarity SL. CLOUDY Urine pH 6.5 Ur Specific Platinum 1.015 Urine Protein NEGATIVE Urine Glucose (UA) NEGATIVE Urine Ketones NEGATIVE Urine Occult Blood NEGATIVE Urine Nitrite NEGATIVE Urine Bilirubin NEGATIVE Urine Urobilinogen 0.2 (NORMAL) Ur Leukocyte Esterase LARGE H Urine RBC 0-5 Urine WBC 11-25 H Ur Squamous Epith Cells MANY Squamous H Urine Bacteria Moderate H Ur Microscopic Review INDICATED Urine Culture Comments NOT INDICATED PD Medical Decision Making - ED course Complexity details: reviewed results, re-evaluated patient, considered differential, d/w patient, d/w consultant internship ED course: 22-year-old female who is G1, P0 presents to the emergency department for evaluations of feeling shaky, having tremor and headache. She does have a history of fentanyl abuse and is seen by a Subutex provider in [place]. She was admitted to inpatient rehab at [facility] last week for fentanyl abuse and while there was receiving Subutex 32 mg daily. Patient reports that there was difficulty with staffing and so she left earlier than would have been anticipated Wednesday. She was told to take Seroquel 100 mg at night for sleep. She was also told to take Subutex 8 mg daily for her opioid addiction. She has taken it 3 times since discharge. On presentation she is alert well-appearing. No fevers, tachycardia, hypotension or hypertension. Her CBC shows no worrisome leukocytosis. She is not anemic. Her electrolytes show no acute worrisome findings. Her urine shows significant bacteria though it is contaminated. However given her she will be treated with Keflex. At this stage I suspect that she has a mild opioid withdrawal. I am asking the OB nurses to complete an NST on the patient. I am also asking on-call OB to evaluate the patient. 1530: Patient has been seen by OB digital communications manager Dr. Julien. His personally evaluated the patient. He feels that from an OB standpoint she is safe for discharge home. An NST has been completed at the bedside and shows no worrisome abnormalities for gestational age. Patient will be discharged with prescription of Keflex for the bacteria in her urine. She is advised to take the Subutex twice daily and will continue to follow very closely with her provider in [place]. Though no medication is without risk she can take the Seroquel prescribed by the psychiatric facility for management of her insomnia at night. The usual appropriate return precautions were discussed Departure - Departure Disposition: 01 Home, Self Care Clinical Impression: Opioid abuse, 28 weeks gestation of , Bacteria in urine Condition: Stable Record reviewed to determine appropriate education?: Yes Instructions: ED Withdrawal Narcotic Prescriptions: cephALEXin [Keflex] 500 mg PO BID #14 cap Comments: Rossy you came to the emergency department today because you have not been sleeping well and you have been generally shaky. You left rehab on Wednesday where you had been for a week for opioid addiction. While in rehab you have been receiving Subutex 8 mg 4 times a day but once discharged were told to take it only once a day. It is likely that you need to be taking this twice a day and then slowly wean down from there. You can take the Seroquel that was prescribed at night to help with sleep. There is no absolute safe medication in however Seroquel is one of the lower risk medications that are sometimes used for mental health as well as sleep with decreased placental passage. You do have some bacteria in your urine. A prescription for an antibiotic has been sent to your preferred pharmacy It is important that you continue to follow closely with your OB team. It is important that you continue to eat well. Return to the ER if you develop any fainting episodes, have severe chest pain, develop any vaginal bleeding or loss of fluids
[2022-07-22] MEDS ORDERED: CLOPIDOGREL 300 MG TABLET PO STA (13:44)
[2022-07-22 14:09] VITALS: BP 123/74
--- NOTE | 2022-07-22 15:52 | PROVIDER PROGRESS NOTE ---
- HPI Chief Complaint: Other (22-year-old female presents to the emergency department for evaluation of being shaky, ringing in her ear and insomnia. She is G1, P0. Reportedly 28 weeks . Has been followed by our Dr. Parr. She was recently at [facility] and hospitalized for acute fentanyl addiction. While th) Current : [id number] female presents to the emergency department for evaluation of being shaky, ringing in her ear and insomnia. She is G1, P0. Reportedly 28 weeks . Has been followed by our Dr. Parr. She was recently at [facility] and hospitalized for acute fentanyl addiction. While there she reports that she was getting Subutex 8 mg 4 times daily. She voluntarily left rehab on Wednesday due to" staffing issues" Since discharge she has been unable to sleep and she feels shaky with a headache. She was prescribed Seroquel 100 mg nightly which she has not taken. She was told to take the Subutex 8 mg once daily. She has taken Subutex 8 mg sublingual strips 3 times since leaving in-patient. Temperature 98.8 F 07/22/22 11:32 Heart Rate 70 07/22/22 11:32 Respiratory Rate 16 07/22/22 11:32 Blood Pressure 110/79 07/22/22 11:32 O2 Saturation 96 07/22/22 11:32 Temperature 98.8 F 07/22/22 11:32 Heart Rate 96 07/22/22 14:08 Respiratory Rate 18 07/22/22 14:08 Blood Pressure 123/74 07/22/22 14:08 O2 Saturation 97 07/22/22 14:08 If not protocol: Oxygen Flow, liters/minute - Procedures OB Procedure Performed: NST NST Procedure: Nonstress test Baseline: 135 Moderate [id number] probability No deceleration and present acceleration - Plan Plan: Discharge home with instruction today and follow-up with her care provider in [place] for her rehab program tomorrow and will visit at the clinic next week She seemed to be stable and very intelligent to understand the circumstances Her nonstress test is reactive and her laboratory works were normal. The results were informed to her and her mother and they understood well. The importance of the following the instruction for the medication is reemphasized and not to skip the medication. If she thinks that the doses were too high then she was supposed to contact the prescriber and discussed with before she stopped taking. And the importance of nutrition and eating healthy was reemphasized. Her last growth was 26 percentile on July 16.
== END 2022-07-22 15:54 | disposition home or self-care (01) ==
LOC: ED 11:14
DX: O99.322 Drug use complicating pregnancy, second trimester (principal); F11.10 Opioid abuse, uncomplicated; O99.891 Other specified diseases and conditions complicating pregnancy; R82.71 Bacteriuria; Z3A.28 28 weeks gestation of pregnancy
CPT/HCPCS: 36415; 59025; 80053; 81001; 81003; 83690; 85025; 87086; 93005; 99284

== ENCOUNTER 2022-07-31 18:34 | Outpatient (CLI) | payer OTHER, MEDICAID ==
--- NOTE | 2022-07-31 20:51 | Ultrasound Report ---
PROCEDURE: OB F/U or Repeat INDICATIONS: INSUFFICIENT WEIGHT GAIN IN OUTSIDE/PRIOR DATING DATA: Last menstrual period (LMP): 02/01/2022. LMP-based estimated date of delivery (COREY): 11/08/2022. First dating scan (date and location): 03/28/2022. Estimated date of delivery (COREY) from first dating scan: 10/13/2022 (working COREY). TECHNIQUE: Real-time scanning was performed of the fetus, with image documentation and biometric measurements. COMPARISON: 06/11/2022 FINDINGS: General: A single living intrauterine gestation is present. Presentation: Vertex Placenta: Placental position is anterior, without previa. Amniotic fluid index: 14.7 cm, within normal limits for gestational age. heart rate: 150 beats per minute. Maternal cervical canal: Not well seen biometrics: Biparietal diameter: 8 cm, 32 weeks and 1 day Head circumference: 28.38 cm, 31 weeks and 1 day Abdominal circumference: 24.6 cm, 28 weeks and 6 days Femur length: 5.07 cm, 27 weeks and 1 day Estimated gestational age from initial scan: 29 weeks and 3 days Composite gestational age from present scan: 28 weeks and 1 day Estimated weight and percentile: 1274 g, 16.4 percentile Measurement variability in biometric dating: +/- 10 days from 12-20 weeks gestation, +/- 2 weeks from 20-30 weeks gestation, +/- 3 weeks at 30 weeks gestation or more. IMPRESSION: Living intrauterine gestation with COREY of 10/13/2022. EFW at the 16.4 percentile, lower limit of normal. Consider continued follow-up. SINAN is within normal limits. Reviewed by: Bruce Ortiz MD on 07/31/2022 8:50 PM PST Approved by: Bruce Ortiz MD on 07/31/2022 8:50 PM PST Station ID: [id number]
== END 2022-07-31 18:35 | disposition home or self-care (01) ==
LOC: DI 18:34
PROVIDERS: ATTEND Obstetrics & Gynecology
DX: O26.10 Low weight gain in pregnancy, unspecified trimester (principal); Z3A.28 28 weeks gestation of pregnancy

== ENCOUNTER 2022-08-25 10:41 | Outpatient (CLI) | payer OTHER, MEDICAID ==
[2022-08-25 11:03] VITALS: BP 102/66
--- NOTE | 2022-08-25 11:32 | PROCEDURE REPORT ---
- HPI Diagnosis/Indication for NST: Gestational Diabetes Current EDU 10/13/22 Gestation 33 Weeks and 0 Days 1 Para 0 Vital Signs Temperature 98.1 F 08/25/22 10:51 Heart Rate 77 08/25/22 10:51 Respiratory Rate 16 08/25/22 10:51 Blood Pressure 102/66 08/25/22 10:51 Temperature 98.1 F 08/25/22 10:51 Heart Rate 77 08/25/22 10:51 Respiratory Rate 16 08/25/22 10:51 Blood Pressure 102/66 08/25/22 10:51 O2 Saturation If not protocol: Oxygen Flow, liters/minute - NST Procedure NST Procedure Start Date 08/25/22 Start Time 10:50 Stop Time 11:16 Vibroacoustic Stimulation Used No Patient States Movement Yes EFM: 140s, moderate variability, positive 15x15 accelerations, no decelerations [place]: one contraction NST reactive/Cat 1 tracing Performed and read 08/25/22 - Results and Plan Findings/Impression: 22yo at 33w presenting for scheduled NST for GDM - NST reactive - Follow up as scheduled
== END 2022-08-25 11:30 | disposition home or self-care (01) ==
LOC: WFO 10:41 → FBP 10:45 → WFO 11:30
PROVIDERS: ATTEND Obstetrics & Gynecology
DX: O24.414 Gestational diabetes mellitus in pregnancy, insulin controlled (principal); Z3A.33 33 weeks gestation of pregnancy
CPT/HCPCS: 59025

== ENCOUNTER 2022-08-27 11:35 | Outpatient (CLI) | payer OTHER, MEDICAID ==
--- NOTE | 2022-08-27 14:07 | Ultrasound Report ---
PROCEDURE: OB F/U or Repeat INDICATIONS: GESTATIONAL DIABETES OUTSIDE/PRIOR DATING DATA: Last menstrual period (LMP): 02/01/2022. LMP-based estimated date of delivery (COREY): 11/08/2022. First dating scan (date and location): 03/28/2022. Estimated date of delivery (COREY) from first dating scan: 10/13/2022. The below data below was generated using the working COREY of 10/13/2022 TECHNIQUE: Real-time scanning was performed of the fetus, with image documentation and biometric measurements. Endovaginal scanning: None COMPARISON: 07/31/2022 FINDINGS: General: A single living intrauterine gestation is present. Presentation: Breech Placenta: Placental position is anterior, without previa. Amniotic fluid index: 14.0 cm, normal for gestational age. Largest vertical pocket 4.2 cm heart rate: 164 beats per minute. Maternal cervical canal: 4.9 cm long; normal length is 2.5 cm or more. biometrics: Biparietal diameter: 8.9 cm, 36 week 0 day Head circumference: 30.8 cm, 34 week 3 day Abdominal circumference: 27.4 cm, 31 week 3 day Femur length: 5.7 cm, 30 week 0 day Estimated gestational age from initial scan: 33 week 2 day Composite gestational age from present scan: 33 week 0 day Estimated weight and percentile: 1811 g, 7th percentile Measurement variability in biometric dating: +/- 10 days from 12-20 weeks gestation, +/- 2 weeks from 20-30 weeks gestation, +/- 3 weeks at 30 weeks gestation or more. Biophysical profile score 8 out of 8. S/D ratio: 2.1, 2.1, 2.8 IMPRESSION: Single live intrauterine consistent with 33 week 0 day gestation by current ultrasound Estimated weight 1811 g, 7th percentile Reviewed by: Heber Boudreaux MD on 08/27/2022 1:06 PM WILLIAM Approved by: Heber Boudreaux MD on 08/27/2022 1:06 PM [place] Station ID: [id number]
== END 2022-08-27 11:36 | disposition home or self-care (01) ==
LOC: DI 11:35
PROVIDERS: ATTEND Obstetrics & Gynecology
DX: O24.414 Gestational diabetes mellitus in pregnancy, insulin controlled (principal); Z3A.33 33 weeks gestation of pregnancy

== ENCOUNTER 2022-08-27 11:36 | Outpatient (CLI) | payer OTHER, MEDICAID ==
--- NOTE | 2022-08-27 14:11 | Ultrasound Report ---
PROCEDURE: OB Biophysical Profile INDICATIONS: GESTATIONAL DIABETES OUTSIDE/PRIOR DATING DATA: Last menstrual period (LMP): 02/01/2022. LMP-based estimated date of delivery (COREY): 11/08/2022. First dating scan (date and location): 03/28/2022. Estimated date of delivery (COREY) from first dating scan: 10/13/2022. The below data below was generated using the working COREY of 10/13/2022 TECHNIQUE: Real-time scanning was performed of the fetus, with image documentation and biometric measurements. Endovaginal scanning: None COMPARISON: 07/31/2022 FINDINGS: General: A single living intrauterine gestation is present. Presentation: Breech Placenta: Placental position is anterior, without previa. Amniotic fluid index: 14.0 cm, normal for gestational age. Largest vertical pocket 4.2 cm heart rate: 164 beats per minute. Maternal cervical canal: 4.9 cm long; normal length is 2.5 cm or more. biometrics: Biparietal diameter: 8.9 cm, 36 week 0 day Head circumference: 30.8 cm, 34 week 3 day Abdominal circumference: 27.4 cm, 31 week 3 day Femur length: 5.7 cm, 30 week 0 day Estimated gestational age from initial scan: 33 week 2 day Composite gestational age from present scan: 33 week 0 day Estimated weight and percentile: 1811 g, 7th percentile Measurement variability in biometric dating: +/- 10 days from 12-20 weeks gestation, +/- 2 weeks from 20-30 weeks gestation, +/- 3 weeks at 30 weeks gestation or more. Biophysical profile score 8 out of 8. S/D ratio: 2.1, 2.1, 2.8 IMPRESSION: Single live intrauterine consistent with 33 week 0 day gestation by current ultrasound Estimated weight 1811 g, 7th percentile Reviewed by: Heber Boudreaux MD on 08/27/2022 1:10 PM AKST Approved by: Heber Boudreaux MD on 08/27/2022 1:10 PM AKST Station ID: [id number]
== END 2022-08-27 11:37 | disposition home or self-care (01) ==
LOC: DI 11:36
PROVIDERS: ATTEND Obstetrics & Gynecology
DX: O24.414 Gestational diabetes mellitus in pregnancy, insulin controlled (principal); Z3A.33 33 weeks gestation of pregnancy

== ENCOUNTER 2022-08-28 08:46 | Outpatient (CLI) | payer OTHER, MEDICAID ==
[2022-08-28 09:03] VITALS: BP 107/66
--- NOTE | 2022-08-28 09:59 | PROCEDURE REPORT ---
- HPI Diagnosis/Indication for NST: Gestational Diabetes Vital Signs Temperature 98.1 F 08/28/22 09:01 Temperature 98.1 F 08/28/22 09:03 Heart Rate 88 08/28/22 09:03 Respiratory Rate 14 08/28/22 09:03 Blood Pressure 107/66 08/28/22 09:03 O2 Saturation 98 08/28/22 09:03 If not protocol: Oxygen Flow, liters/minute - NST Procedure NST Procedure Start Time 10:50 Stop Time 11:16 EFM: 130s, moderate variability, positive 15x15 accelerations, one variable deceleration [place]: no contractions NST reactive/Cat 1 Performed and read on 08/28/22 - Results and Plan Findings/Impression: 22yo at 33.3w presenting for scheduled NST for GDMA2 - NST reactive, one variable deceleration. BPP 8/8 and SINAN 14 - Follow up as scheduled
== END 2022-08-28 09:39 | disposition home or self-care (01) ==
LOC: WFO 08:46 → FBP 08:49 → WFO 09:39
PROVIDERS: ATTEND Obstetrics & Gynecology
DX: O24.414 Gestational diabetes mellitus in pregnancy, insulin controlled (principal); Z3A.33 33 weeks gestation of pregnancy
CPT/HCPCS: 59025

== ENCOUNTER 2022-09-01 10:34 | Outpatient (CLI) | payer OTHER, MEDICAID ==
[2022-09-01 11:33] VITALS: BP 115/72
--- NOTE | 2022-09-01 12:35 | PROCEDURE REPORT ---
- HPI Diagnosis/Indication for NST: Gestational Diabetes Current EDU 10/13/22 Gestation 34 Weeks and 0 Days 1 Para 0 Vital Signs Temperature 98.1 F 09/01/22 10:51 Heart Rate 93 09/01/22 10:51 Respiratory Rate 16 09/01/22 10:51 Blood Pressure 115/72 09/01/22 10:51 Temperature 98.1 F 09/01/22 10:51 Heart Rate 93 09/01/22 10:51 Respiratory Rate 16 09/01/22 10:51 Blood Pressure 115/72 09/01/22 10:51 O2 Saturation If not protocol: Oxygen Flow, liters/minute - NST Procedure NST Procedure Start Date 09/01/22 Start Time 10:42 Stop Time 11:07 Vibroacoustic Stimulation Used No Patient States Movement Yes EFM: 140s, moderate variability, positive 15x15 accelerations, no decelerations [place]: two contractions, not appreciated by patient NST reactive/Cat 1 Performed and read 09/01/22 - Results and Plan Findings/Impression: 22yo at 34 presented for scheduled NST for GDMA2 and new concern for IUGR (7%) - NST reactive today - Referred to [facility] to evaluate for IUGR - Follow up as scheduled
== END 2022-09-01 11:20 | disposition home or self-care (01) ==
LOC: WFO 10:34 → FBP 10:37 → WFO 11:20
PROVIDERS: ATTEND Obstetrics & Gynecology
DX: O24.419 Gestational diabetes mellitus in pregnancy, unspecified control (principal); Z3A.34 34 weeks gestation of pregnancy
CPT/HCPCS: 59025

== ENCOUNTER 2022-09-04 09:51 | Outpatient (CLI) | payer OTHER, MEDICAID ==
--- NOTE | 2022-09-04 11:59 | Ultrasound Report ---
PROCEDURE: OB Biophysical Profile INDICATIONS: GESTATIONAL DIABETES OUTSIDE/PRIOR DATING DATA: Last menstrual period (LMP): 02/01/2022. LMP-based estimated date of delivery (COREY): 11/08/2022. First dating scan (date and location): 03/28/2022. Estimated date of delivery (COREY) from first dating scan: 10/13/2022. The below data below was generated using the sonographic COREY of 10/13/2022 TECHNIQUE: Real-time scanning was performed of the fetus, with Biophysical profile and umbilical art lory waveforms were obtained. Endovaginal scanning: Not performed COMPARISON: Ultrasound 08/27/2022, 07/31/2022 FINDINGS: General: A single living intrauterine gestation is present. Presentation: Vertex Placenta: Placental position is anterior, without previa. Amniotic fluid index: 17.6 cm, normal for gestational age. heart rate: 148 beats per minute. Maternal cervical canal: 5.1 cm long; normal length is 2.5 cm or more. Biophysical profile: Tone: 2 points. Movement: 2 points. Respiration: 2 points. Largest pocket of fluid: 2 points. Umbilical artery Doppler: Normal umbilical artery waveforms. SD ratio measures 2.9-3.1. IMPRESSION: 1.BPP of 8 of 8. 2.Normal umbilical artery waveform. Reviewed by: Mykel Balbuena on 09/04/2022 11:58 AM PST Approved by: Mykel Balbuena on 09/04/2022 11:58 AM PST Station ID: [id number]
== END 2022-09-04 09:52 | disposition home or self-care (01) ==
LOC: DI 09:51
PROVIDERS: ATTEND Obstetrics & Gynecology
DX: O24.414 Gestational diabetes mellitus in pregnancy, insulin controlled (principal); Z3A.00 Weeks of gestation of pregnancy not specified

== ENCOUNTER 2022-09-04 09:53 | Outpatient (CLI) | payer OTHER, MEDICAID ==
[2022-09-04 11:13] VITALS: BP 111/66
--- NOTE | 2022-09-04 12:00 | PROCEDURE REPORT ---
- HPI Current EDU 10/13/22 Gestation 34 Weeks and 3 Days 1 Para 0 Vital Signs Temperature 98.1 F 09/04/22 11:08 Heart Rate 83 09/04/22 11:08 Respiratory Rate 16 09/04/22 11:08 Blood Pressure 111/66 09/04/22 11:08 Temperature 98.1 F 09/04/22 11:08 Heart Rate 83 09/04/22 11:08 Respiratory Rate 16 09/04/22 11:08 Blood Pressure 111/66 09/04/22 11:08 O2 Saturation If not protocol: Oxygen Flow, liters/minute - NST Procedure NST Procedure Start Date 09/04/22 Start Time 11:05 Stop Time 11:07 Vibroacoustic Stimulation Used No Patient States Movement Yes - Results and Plan Plan: Patient is a 22-year-old at 34 weeks 3 days gestation here for scheduled NST. NST Performed 09/04/2022 NST Read 09/04/2022 FHT: 140 bpm baseline, moderate variability, accelerations present, no decelerations. Reactive NST [place]: Quiescent Diagnosis 34 weeks gestation Gestational diabetes Continue with twice weekly NST.
== END 2022-09-04 10:45 | disposition home or self-care (01) ==
LOC: WFO 09:53 → FBP 09:55 → WFO 10:45
PROVIDERS: ATTEND Obstetrics & Gynecology
DX: O24.414 Gestational diabetes mellitus in pregnancy, insulin controlled (principal); Z3A.34 34 weeks gestation of pregnancy
CPT/HCPCS: 59025

== ENCOUNTER 2022-09-08 10:47 | Outpatient (CLI) | payer OTHER, MEDICAID ==
[2022-09-08 11:04] VITALS: BP 107/72
--- NOTE | 2022-09-08 15:01 | PROCEDURE REPORT ---
- HPI Diagnosis/Indication for NST: Gestational Diabetes Current EDU 10/13/22 Gestation 35 Weeks and 0 Days 1 Para 0 Vital Signs Temperature 98.1 F 09/08/22 10:57 Heart Rate 94 09/08/22 10:57 Respiratory Rate 16 09/08/22 10:57 Blood Pressure 107/72 09/08/22 10:57 Temperature 98.1 F 09/08/22 11:26 Heart Rate 94 09/08/22 11:26 Respiratory Rate 16 09/08/22 11:26 Blood Pressure 107/72 09/08/22 11:26 O2 Saturation If not protocol: Oxygen Flow, liters/minute - NST Procedure NST Procedure Start Date 09/08/22 Start Time 10:52 Stop Time 11:17 Vibroacoustic Stimulation Used No Patient States Movement Yes EFM: 150s, moderate variability, positive 15x15 accelerations, no decelerations [place]: no contractions NST reactive/Cat 1 Performed and read 09/08/22 - Results and Plan Plan: 22yo at 35w presenting for scheduled NST for GDM - NST reactive - Follow up as scheduled 09/09/22
== END 2022-09-08 11:30 | disposition home or self-care (01) ==
LOC: WFO 10:47 → FBP 10:50 → WFO 11:30
PROVIDERS: ATTEND Obstetrics & Gynecology
DX: O24.414 Gestational diabetes mellitus in pregnancy, insulin controlled (principal); O36.5930 Maternal care for other known or suspected poor fetal growth, third trimester, not applicable or unspecified; Z3A.35 35 weeks gestation of pregnancy
CPT/HCPCS: 59025

== ENCOUNTER 2022-09-11 15:32 | Outpatient (CLI) | payer OTHER, MEDICAID ==
--- NOTE | 2022-09-11 17:06 | Ultrasound Report ---
PROCEDURE: OB Biophysical Profile INDICATIONS: GESTATIONAL DIABETES OUTSIDE/PRIOR DATING DATA: Last menstrual period (LMP): 02/01/2022. LMP-based estimated date of delivery (COREY): 11/08/2022. First dating scan (date and location): 03/28/2022. Estimated date of delivery (COREY) from first dating scan: 10/13/2022. The below data below was generated using the ultrasound COREY of 10/13/2022 TECHNIQUE: Real-time scanning was performed of the fetus, with image documentation and biometric aly surements. Biophysical profile was also obtained. COMPARISON: 09/04/2022 FINDINGS: General: A single living intrauterine gestation is present. Presentation: Vertex Placenta: Placental position is anterior, without previa. Amniotic fluid index: 11.3 cm, normal for gestational age. heart rate: 140 beats per minute. Maternal cervical canal: Not visualized. Biophysical profile: Tone: 2 points. Movement: 2 points. Respiration: 2 points. Largest pocket of fluid: 2 points. Umbilical artery Doppler: S:D ratios 2.4-2.67. Antegrade diastolic flow maintained. Other: No urinary tract dilation visualized. IMPRESSION: 1. Single living intrauterine . 2. Biophysical profile score 8/8. 3. Normal umbilical artery Doppler. Reviewed by: Reynaldo Verdugo MD on 09/11/2022 5:05 PM PDT Approved by: Reynaldo Verdugo MD on 09/11/2022 5:05 PM PDT Station ID: [id number]
== END 2022-09-11 15:33 | disposition home or self-care (01) ==
LOC: DI 15:32
PROVIDERS: ATTEND Obstetrics & Gynecology
DX: O24.414 Gestational diabetes mellitus in pregnancy, insulin controlled (principal); Z3A.00 Weeks of gestation of pregnancy not specified

== ENCOUNTER 2022-09-11 16:07 | Outpatient (CLI) | payer OTHER, MEDICAID ==
[2022-09-11 17:03] VITALS: BP 114/68
--- NOTE | 2022-09-12 09:15 | PROCEDURE REPORT ---
- HPI Current EDU 10/13/22 Gestation 35 Weeks and 3 Days 1 Para 0 Vital Signs Temperature 97.9 F 09/11/22 16:17 Heart Rate 90 09/11/22 16:17 Respiratory Rate 20 09/11/22 16:17 Blood Pressure 114/68 09/11/22 16:17 Temperature 97.9 F 09/11/22 16:22 Heart Rate 90 09/11/22 16:22 Respiratory Rate 20 09/11/22 16:22 Blood Pressure 114/68 09/11/22 16:22 O2 Saturation If not protocol: Oxygen Flow, liters/minute - NST Procedure NST Procedure Start Date 09/11/22 Start Time 16:17 Stop Time 16:50 Vibroacoustic Stimulation Used No Patient States Movement Yes - Results and Plan Plan: Patient is a 22-year-old G1, P0 at 35 weeks 2 days gestation here for scheduled NST. NST Performed 09/11/2022 NST Read 09/11/2022 FHT: 135 bpm baseline, moderate variability, accelerations present, no decelerations. Reactive NST [place]: Quiescent Diagnosis 35 weeks gestation Gestational diabetes Continue with twice weekly NST.
== END 2022-09-11 17:15 | disposition home or self-care (01) ==
LOC: WFO 16:07 → FBP 16:09 → WFO 17:15
PROVIDERS: ATTEND Obstetrics & Gynecology
DX: O24.414 Gestational diabetes mellitus in pregnancy, insulin controlled (principal); Z3A.35 35 weeks gestation of pregnancy
CPT/HCPCS: 59025; 99214

== ENCOUNTER 2022-09-17 08:00 | Outpatient (CLI) | payer OTHER, MEDICAID | END 2022-09-17 23:59 | disposition home or self-care (01) | LOC: LAB.WC 08:00 | PROVIDERS: ATTEND Obstetrics & Gynecology | DX: Z36.85 Encounter for antenatal screening for Streptococcus B (principal) | CPT/HCPCS: 87797 ==

== ENCOUNTER 2022-09-18 16:28 | Outpatient (CLI) | payer OTHER, MEDICAID ==
[2022-09-18 17:20] VITALS: BP 124/64
--- NOTE | 2022-09-18 17:57 | PROCEDURE REPORT ---
- HPI Diagnosis/Indication for NST: Gestational Diabetes Current EDU 10/13/22 Gestation 36 Weeks and 3 Days 1 Para 0 Vital Signs Temperature 97.9 F 09/18/22 16:45 Heart Rate 75 09/18/22 16:45 Respiratory Rate 16 09/18/22 16:45 Blood Pressure 124/64 09/18/22 16:45 O2 Saturation 99 09/18/22 16:45 Temperature 97.9 F 09/18/22 17:04 Heart Rate 75 09/18/22 16:45 Respiratory Rate 16 09/18/22 16:45 Blood Pressure 124/64 09/18/22 16:45 O2 Saturation 99 09/18/22 16:45 If not protocol: Oxygen Flow, liters/minute - NST Procedure NST Procedure Start Date 09/18/22 Start Time 16:35 Stop Time 17:11 Vibroacoustic Stimulation Used No Patient States Movement Yes Baseline 140 Moderate variability Present acceleration 15x15 Absent deceleration - Results and Plan Findings/Impression: Reactive nonstress test Plan: As planned she is going to have weekly nonstress test here and another nons tress test with ultrasound study by [facility] weekly. Her growth rate was 7 percentile last time but this time was a 9 percentile therefore [facility] is planning to induce her her at 39 weeks.
== END 2022-09-18 17:25 | disposition home or self-care (01) ==
LOC: WFO 16:28 → FBP 16:59 → WFO 17:25
PROVIDERS: ATTEND Obstetrics & Gynecology
DX: O24.414 Gestational diabetes mellitus in pregnancy, insulin controlled (principal); Z3A.36 36 weeks gestation of pregnancy
CPT/HCPCS: 59025

== ENCOUNTER 2022-09-25 11:03 | Outpatient (CLI) | payer OTHER, MEDICAID ==
[2022-09-25 12:36] VITALS: BP 112/81
--- NOTE | 2022-09-25 17:30 | PROCEDURE REPORT ---
- HPI Diagnosis/Indication for NST: Gestational Diabetes Current EDU 10/13/22 Gestation 37 Weeks and 3 Days 1 Para 0 Vital Signs Temperature 97.9 F 09/25/22 11:15 Heart Rate 77 09/25/22 11:15 Respiratory Rate 16 09/25/22 11:15 Blood Pressure 112/81 H 09/25/22 11:15 O2 Saturation 97 09/25/22 11:15 Temperature 97.9 F 09/25/22 11:15 Heart Rate 77 09/25/22 11:15 Respiratory Rate 16 09/25/22 11:15 Blood Pressure 112/81 H 09/25/22 11:15 O2 Saturation 97 09/25/22 11:15 If not protocol: Oxygen Flow, liters/minute - NST Procedure NST Procedure Start Date 09/25/22 Start Time 11:10 Stop Time 11:40 Vibroacoustic Stimulation Used No Patient States Movement Yes EFM: 150s, moderate variability, positive 15x15 accelerations, no decelerations [place]: no contractions NST reactive/Cat 1 Performed and read 09/25/22 - Results and Plan Plan: 22yo at 37.3w presented for scheduled NST for GDMA2 - NST reactive - Follow up as scheduled
== END 2022-09-25 11:50 | disposition home or self-care (01) ==
LOC: WFO 11:03 → FBP 11:05 → WFO 11:50
PROVIDERS: ATTEND Obstetrics & Gynecology
DX: O24.414 Gestational diabetes mellitus in pregnancy, insulin controlled (principal); O36.5930 Maternal care for other known or suspected poor fetal growth, third trimester, not applicable or unspecified; Z3A.37 37 weeks gestation of pregnancy
CPT/HCPCS: 59025

== ENCOUNTER 2022-10-02 10:49 | Outpatient (CLI) | payer OTHER, MEDICAID ==
[2022-10-02 11:04] VITALS: BP 106/69
--- NOTE | 2022-10-03 10:37 | PROCEDURE REPORT ---
- HPI Diagnosis/Indication for NST: Gestational Diabetes Current EDU 10/13/22 Gestation 38 Weeks and 3 Days 1 Para 0 Vital Signs Temperature 98.2 F 10/02/22 11:03 Heart Rate 89 10/02/22 11:03 Respiratory Rate 17 10/02/22 11:03 Blood Pressure 106/69 10/02/22 11:03 O2 Saturation 100 10/02/22 11:03 Temperature 98.2 F 10/02/22 11:35 Heart Rate 89 10/02/22 11:03 Respiratory Rate 17 10/02/22 11:03 Blood Pressure 106/69 10/02/22 11:03 O2 Saturation 100 10/02/22 11:03 If not protocol: Oxygen Flow, liters/minute - NST Procedure NST Procedure Start Date 10/02/22 Start Time 10:54 Stop Time 11:22 Vibroacoustic Stimulation Used No Patient States Movement Yes 38 weeks 3 days gestation Indication: GDM and IUGR baseline: 140 positive acceleration negative deceleration Reactive NST - Results and Plan Findings/Impression: 38 weeks 3 days GDM IUGR reactive NST Plan: Keep the scheduled appointment
== END 2022-10-02 11:30 | disposition home or self-care (01) ==
LOC: WFO 10:49 → FBP 10:50 → WFO 11:30
PROVIDERS: ATTEND Obstetrics & Gynecology
DX: O24.414 Gestational diabetes mellitus in pregnancy, insulin controlled (principal); O36.5930 Maternal care for other known or suspected poor fetal growth, third trimester, not applicable or unspecified; Z3A.38 38 weeks gestation of pregnancy
CPT/HCPCS: 59025

== ENCOUNTER 2022-10-06 10:44 | Outpatient (CLI) | payer OTHER, MEDICAID ==
[2022-10-06 11:09] VITALS: BP 107/65
--- NOTE | 2022-10-07 00:29 | PROCEDURE REPORT ---
- HPI Diagnosis/Indication for NST: Gestational Diabetes Current EDU 10/13/22 Gestation 39 Weeks and 0 Days 1 Para 0 Vital Signs Temperature 98.1 F 10/06/22 11:03 Heart Rate 83 10/06/22 11:03 Respiratory Rate 16 10/06/22 11:03 Blood Pressure 107/65 10/06/22 11:03 Temperature 98.1 F 10/06/22 11:30 Heart Rate 83 10/06/22 11:30 Respiratory Rate 16 10/06/22 11:30 Blood Pressure 107/65 10/06/22 11:30 O2 Saturation If not protocol: Oxygen Flow, liters/minute - NST Procedure NST Procedure 38 weeks 6 days indication for NST: GDM IUGR Start Date 10/06/22 Start Time 10:53 Stop Time 11:22 Vibroacoustic Stimulation Used No Patient States Movement Yes Baseline: 140 moderate variability Present accelerations 15 x 15 Absent deceleration - Results and Plan Findings/Impression: Reactive nonstress test Plan: Elective induction of labor tomorrow as scheduled
== END 2022-10-06 11:30 | disposition home or self-care (01) ==
LOC: WFO 10:44 → FBP 10:55 → WFO 11:30
PROVIDERS: ATTEND Obstetrics & Gynecology
DX: O24.414 Gestational diabetes mellitus in pregnancy, insulin controlled (principal); O36.5930 Maternal care for other known or suspected poor fetal growth, third trimester, not applicable or unspecified; Z3A.39 39 weeks gestation of pregnancy
CPT/HCPCS: 59025

== ENCOUNTER 2022-10-07 19:55 | Inpatient (IN) | payer OTHER, MEDICAID ==
[2022-10-07] MEDS ORDERED: SODIUM CHLORIDE FLUSH 0.9% 10 ML SYRINGE IVP PRN (20:04)
[2022-10-07] MEDS ORDERED: lidocaine 1% 20 ML MDV ID PRN (20:04)
[2022-10-07] MEDS ORDERED: OXYTOCIN/SODIUM CHLORIDE 500 ML IV PRN ×2 (20:04)
[2022-10-07] MEDS ORDERED: miSOPROStoL 200 MCG TABLET BC PRN (20:04)
[2022-10-07] MEDS ORDERED: OXYTOCIN 10 UNIT/ML VIAL IM PRN (20:04)
[2022-10-07] MEDS ORDERED: miSOPROStoL 200 MCG TABLET PR ONE (20:04)
[2022-10-07] MEDS ORDERED: CARBOPROST TROMETHAMINE 250 MCG/ML AMP IM PRN ×2 (20:04)
[2022-10-07] MEDS ORDERED: ONDANSETRON 4 MG/2 ML VIAL IVP PRN (20:04)
[2022-10-07] MEDS ORDERED: TRANEXAMIC ACID IN NACL 1,000 MG/100 ML BAG IV PRN (20:04)
[2022-10-07] MEDS ORDERED: METHYLERGONOVINE 0.2 MG/ML VIAL IM PRN ×2 (20:04)
[2022-10-07] MEDS ORDERED: miSOPROStoL 200 MCG TABLET PR PRN (20:04)
--- NOTE | 2022-10-07 20:21 | HISTORY & PHYSICAL EXAMINATION ---
History and Physical - History and Physical H&P HPI: [ AGE 22, G1, P0 , presenting for IOL. She has good movement. Denies loss of fluid. No VENTURA/BV or RUQP. No vaginal bleeding. Denies nausea and vomiting. Denies urinary urgency or dysuria. She is scheduled for induction due to gestational diabetes. Intrauterine growth restriction was an issue but became no issue anymore. All other symptoms reviewed and were negative except per HPI. Course [She has been followed by serial nonstress test and ultrasound for the growth Her nonstress test been reactive and ultrasound showed better growth. 9 percentile became 18 percentile ] PMH [ none] PSH [none ] OB History [ ] SH [ no smoking no alcohol] Family History [neg ] Allergies [ not known] Medications [ vit ] Physical exam: General: Alert, oriented, no acute distress Head: Normal cephalic atraumatic Eyes: PERRLA, extraocular motions intact. Respiratory: Normal rate of respiration. No accessory muscle use, normal respiratory effort. Cardiovascular: Regular rate and rhythm Abdomen: Gravid, nontender, nondistended Extremities: Normal range of motion Neuro: Oriented x3. Normal movements Psych: Appropriate mood and affect. Normal judgment and insight SVE: [FT/50/-1 ] FHT: [ 140 cat 1] [place]: [ no contractions ] Plan [IOL with balloon and cytotec 25 mcg subligually ]
--- NOTE | 2022-10-07 20:26 | PROCEDURE REPORT ---
Hospitalist Procedure Note - Procedure Note Procedure Note: Induction of labor risk, benefits and alternative reviewed. Discussed cervical ripening options and need for this if Glasgow score is less than 8. Discussed if Glasgow score above 8 then can proceed with induction of labor. Inductions is always performed with Pitocin through the IV and artificial rupture of membranes. Discussed risk and benefit of both. Risk of failed induction and possible need for was reviewed. Procedure: The procedure has been discussed with the patient, including benefits and risk. She also understands the possibility of awaiting spontaneous labor. She consents to a labor induction preceded by balloon cervical ripening. Patient in lithotomy. Consent obtained. Speculum placed, cervix identified. Prepped with Betadine. [employer] balloon placed into cervix without difficulty. Uterine balloon filled with a 70 cc sterile water.. Vaginal balloon also filled with 70 cc sterile water, tolerated well. T Cat 1.
[2022-10-07] MEDS ORDERED: miSOPROStoL 100 MCG TABLET VG SCH (21:00)
[2022-10-07 21:06] LABS: BASOPHILS % (AUTO) 0.4 %; EOSINOPHILS # (AUTO) 0.2 10^3/uL (0.0-0.7); EOSINOPHILS % (AUTO) 2.3 %; HGB - HEMOGLOBIN 13.1 g/dL (12.0-16.0); LYMPHOCYTES # (AUTO) 2.6 10^3/uL (1.5-3.5); LYMPHOCYTES % (AUTO) 26.9 %; MEAN CORPUSCULAR HEMOGLOBIN 31.6 pg (27.0-31.0); MEAN CORPUSCULAR HGB CONC 35.4 g/dL (32.0-36.0); MEAN CORPUSCULAR VOLUME 89.4 fL (81.0-99.0); MEAN PLATELET VOLUME 9.6 fL (7.9-10.8); MONOCYTES # (AUTO) 0.9 10^3/uL (0.0-1.0); MONOCYTES % (AUTO) 9.8 %; NEUTROPHILS # (AUTO) 5.7 10^3/uL (1.5-6.6); NEUTROPHILS % (AUTO) 59.7 %; PLT - PLATELET COUNT 311 10^3/uL (130-450); RED BLOOD COUNT 4.14 10^6/uL (4.20-5.40); RED CELL DISTRIBUTION WIDTH 12.6 % (12.0-15.0); WHITE BLOOD COUNT 9.6 x10^3/uL (4.8-10.8)
[2022-10-07] MEDS: LACTATED RINGERS 1,000 ML IV SCH (22:06)
[2022-10-07] MEDS: miSOPROStoL 100 MCG TABLET BC SCH (22:13)
[2022-10-08] MEDS ORDERED: ROPIVACAINE 0.2% 200 MG/100 ML BAG EP ONE (00:40)
[2022-10-08] MEDS ORDERED: NON FORMULARY MED PO SCH (01:00)
[2022-10-08] MEDS ORDERED: SODIUM CHLORIDE FLUSH 0.9% 10 ML SYRINGE IVP SCH (01:00)
[2022-10-08] MEDS: QUEtiapine 100 MG TABLET PO SCH (01:09)
[2022-10-08] MEDS ORDERED: ROPIVACAINE 0.2% 200 MG/100 ML BAG EP PRN (01:11)
[2022-10-08] MEDS ORDERED: NALBUPHINE 10 MG/ML AMP IVP PRN (01:11)
[2022-10-08] MEDS ORDERED: diphenhydrAMINE INJ 50 MG/ML VIAL IVP PRN (01:11)
[2022-10-08] MEDS ORDERED: ONDANSETRON 4 MG/2 ML VIAL IVP PRN ×2 (01:11→19:27)
--- NOTE | 2022-10-08 01:14 | ANESTHESIA ---
Pre-Anesthesia VS, & Labs - Diagnosis labor induction - Procedure epidural Vital Signs: Temp Pulse Resp BP Pulse Ox O2 Flow Rate 36.7 C 83 18 119/84 H 10/07/22 21:06 10/07/22 21:06 10/07/22 21:06 10/07/22 21:06 Height: 5 ft 3 in Weight (kg): 54.885 kg Body Mass Index: 21.4 BMI Classification: Normal - NPO >8 hours - Is Patient ?: Yes - Lab Results Current Lab Results: Laboratory Tests 10/07/22 20:45: Blood Type B POSITIVE, Antibody Screen NEGATIVE 10/07/22 20:45: WBC 9.6, RBC 4.14 L, Hgb 13.1, Hct 37.0, MCV 89.4, MCH 31.6 H, MCHC 35.4, RDW 12.6, Plt Count 311, MPV 9.6, Neut # (Auto) 5.7, Lymph # (Auto) 2.6, [place] # (Auto) 0.9, Eos # (Auto) 0.2, Baso # (Auto) 0.0, Absolute Nucleated RBC 0.00, Nucleated RBC % 0.0 Fish Bones: 10/07/22 20:45 Home Medications and Allergies Active Medications Carboprost Tromethamine (Carboprost Tromethamine 250 Mcg/Ml Amp) 250 mcg IM Q15M PRN PRN Reason: Step 4: Hemorrhage protocol Stop: 10/12/22 20:05 Carboprost Tromethamine (Carboprost Tromethamine 250 Mcg/Ml Amp) 250 mcg IM ONCE PRN PRN Reason: Post- Hemorrhage Stop: 10/08/22 20:03 Diphenhydramine HCl (Diphenhydramine Inj 50 Mg/Ml Vial) 12.5 - 25 mg IVP Q6HR PRN PRN Reason: ITCHING Oxytocin/Sodium Chloride (Pitocin/Sodium Chloride) 500 mls @ 999 mls/hr IV PRN PRN; Protocol PRN Reason: POST- HEMORR PREVENTION Stop: 10/12/22 20:05 Tranexamic Acid (Tranexamic 1,000 Mg/100ml-Nacl) 1,000 mg in 100 mls @ 600 mls/hr IV .ONCE PRN PRN Reason: EBL >1200mL and within 3hr Stop: 10/12/22 20:05 Oxytocin/Sodium Chloride (Pitocin/Sodium Chloride) 500 mls @ 999 mls/hr IV PRN PRN; Protocol PRN Reason: POST- HEMORR PREVENTION Lactated Ringer's (Lr) 1,000 mls @ 100 mls/hr IV .Q10H [facility] Last Admin: 10/07/22 22:06 Dose: 100 mls/hr Ropivacaine (Naropin 0.2%) 200 mg in 100 mls @ 0 mls/hr EP PRN PRN; Protocol PRN Reason: PAIN Lidocaine HCl (Lidocaine 1% 20 Ml Mdv) 20 ml ID .ONCE PRN PRN Reason: PERINEAL REPAIR Stop: 10/12/22 20:05 Metformin HCl (Metformin 500 Mg Tablet) 1,000 mg PO 0800 [facility] Methylergonovine Maleate (Methylergonovine 0.2 Mg/Ml Vial) 0.2 mg IM .ONCE PRN PRN Reason: Step 2: Hemorrhage protocol Stop: 10/12/22 20:05 Methylergonovine Maleate (Methylergonovine 0.2 Mg/Ml Vial) 0.2 mg IM Q4HR PRN PRN Reason: Post- Hemorrhage Misoprostol (Misoprostol 200 Mcg Tablet) 800 mcg BC .ONCE PRN PRN Reason: Step 3: Hemorrhage protocol Stop: 10/12/22 20:05 Misoprostol (Misoprostol 200 Mcg Tablet) 800 mcg NM ONCE PRN PRN Reason: Post- Hemorrhage Stop: 10/08/22 20:03 Misoprostol (Misoprostol 100 Mcg Tablet) 25 mcg BC Q4H [facility] Last Admin: 10/07/22 22:13 Dose: 25 mcg Nalbuphine HCl (Nalbuphine 10 Mg/Ml Amp) 2.5 - 5 mg IVP Q4H PRN PRN Reason: Severe Itching Non-Formulary Medication (Non Formulary Med) 1 each PO TID [facility] Last Admin: 10/08/22 01:10 Dose: 1 each Ondansetron HCl (Ondansetron 4 Mg/2 Ml Vial) 4 mg IVP Q4HR PRN PRN Reason: Nausea / Vomiting Ondansetron HCl (Ondansetron 4 Mg/2 Ml Vial) 4 mg IVP Q6HR PRN PRN Reason: Nausea / Vomiting Oxytocin (Oxytocin 10 Unit/Ml Vial) 10 unit IM .ONCE PRN PRN Reason: Step one: If no IV access Stop: 10/12/22 20:05 Quetiapine Fumarate (Quetiapine 100 Mg Tablet) 100 mg PO QPM [facility] Last Admin: 10/08/22 01:09 Dose: 100 mg Sodium Chloride (Sodium Chloride Flush 0.9% 10 Ml Syringe) 10 ml IVP 0100,0900,1700 ALONZO Sodium Chloride (Sodium Chloride Flush 0.9% 10 Ml Syringe) 10 ml IVP PRN PRN PRN Reason: NEEDED PER PROVIDER ORDERS Buprenorphine HCl/Naloxone HCl [Buprenorphine-Nalox 8-2Mg Film] 1.5 film SL DAILY 03/28/22 Metoclopramide [Reglan] 5 mg PO DAILY PRN 05/17/22 Allergies/Adverse Reactions: Allergies Allergy/AdvReac Type Severity Reaction Status Date / Time No Known Drug Allergies Allergy Verified 07/22/22 11:39 Anes History & Medical History - Anesthetic History Anesthesia Complications: reports: No previous complications - Medical History Cardiovascular: reports: None Pulmonary: reports: None Gastrointestinal: reports: GERD Urinary: reports: None Neuro: reports: None Musculoskeletal: reports: None Endocrine/Autoimmune: reports: None Blood Disorders: reports: None Skin: reports: None Smoking Status: Current some day smoker Psychosocial: reports: Opioid (history of abuse) Exam General: Alert, Cooperative, Moderate distress Dental: WNL Mouth Opening: Greater than 4 Fingerbreadths Neck Mobility: Normal Mallampati classification: II Thyromental Distance: greater than 6 cm Respiratory: Lungs clear Cardiovascular: Regular rate Plan Anesthesia Type: Epidural Consent for Procedure(s) Verified and Reviewed: Yes Code Status: Attempt Resuscitation ASA classification: 2-Mild systemic disease Is this case an emergency?: No
[2022-10-08] MEDS: miSOPROStoL 100 MCG TABLET BC SCH ×3 (03:08→10:00)
[2022-10-08] MEDS ORDERED: metFORMIN 500 MG TABLET PO SCH (08:00)
[2022-10-08] MEDS ORDERED: BUPRENORPHINE 8 MG PO SCH (10:00)
[2022-10-08] MEDS ORDERED: OXYTOCIN/SODIUM CHLORIDE 500 ML IV SCH (10:00)
--- NOTE | 2022-10-08 11:15 | PROVIDER PROGRESS NOTE ---
Labor Progress Note - Uterine Monitoring Uterine Monitoring Mode: positive: External toco Contraction Frequency (min/apart): 3-5 Contraction Intensity: positive: Mild to moderate Uterine Resting Tone: positive: Soft - Monitoring Monitor Mode: positive: External ultrasound Heart Rate Baseline: 135 Heart Rate Variability: positive: Moderate (6-25 bmp) Accelerations: positive: Present, 15x15 Decelerations: positive: None Strip Review: positive: Category I - Vaginal Exam Dilation (in cm): 5 Effacement (%): 50 Station: -3 Cervical Position: Posterior - Labor Progress Note Labor Progress Note/Additional Text: Patient was examined and still high, so will hold off from amniotomy. Oxytocin started at that time. Currently charbel regularly. Received one dose of misoprostol followed by CRB. Epidural for pain control. Anticipate amniotomy at next check and subsequent .
[2022-10-08] MEDS ORDERED: ROPIVACAINE 0.2% PF 10 ML VIAL ONE (12:44)
[2022-10-08] MEDS ORDERED: fentaNYL 100 MCG/2 ML VIAL ONE ×2 (12:45→18:15)
--- NOTE | 2022-10-08 13:16 | CONSULTATION NOTE ---
Consultation Report: Called for new contraction pain and pain with recent vaginal exam. Pitocin initiated and charbel regularly. Pt able to move B LE. Epidural site WNL, dosed with 8cc 0.2% ropi and 100mcg Fentanyl. Patient states contraction pain has lessened after 5 mins.
[2022-10-08] MEDS: LACTATED RINGERS 1,000 ML IV SCH (13:30)
--- NOTE | 2022-10-08 14:46 | PROVIDER PROGRESS NOTE ---
Labor Progress Note - Uterine Monitoring Uterine Monitoring Mode: positive: External toco Contraction Frequency (min/apart): 2 Contraction Intensity: positive: Moderate Uterine Resting Tone: positive: Soft - Monitoring Monitor Mode: positive: External ultrasound Heart Rate Baseline: 135 Heart Rate Variability: positive: Moderate (6-25 bmp) Decelerations: positive: None Strip Review: positive: Category I - Labor Progress Note Labor Progress Note/Additional Text: Patient did not tolerate vaginal exam. Attempted to get patient more comfortable. Had a run of late decelerations previously, but resolved.
[2022-10-08] MEDS ORDERED: LIDOCAINE-PF 2% 10 ML AMP SUBQ ONE (15:14)
[2022-10-08] MEDS ORDERED: SODIUM CHLORIDE 0.9% 1,000 ML IV ONE (15:16)
--- NOTE | 2022-10-08 15:21 | CONSULTATION NOTE ---
Consultation Report: Called for new pain after AROM, epidural dosed with 7cc 2% Lidocaine after negative aspiration. Pump to 10cc q 45mins. Will continue to assess.
--- NOTE | 2022-10-08 16:59 | PROVIDER PROGRESS NOTE ---
Labor Progress Note - Uterine Monitoring Uterine Monitoring Mode: positive: External toco, IUPC Contraction Intensity: positive: Moderate Uterine Resting Tone: positive: Soft - Monitoring Monitor Mode: positive: External ultrasound Heart Rate Variability: positive: Moderate (6-25 bmp) Accelerations: positive: Present, 15x15 Decelerations: positive: Variable, Recurrent (>50% x20 min) Strip Review: positive: Category II - Vaginal Exam Dilation (in cm): 6 Effacement (%): 80 Station: 0 - Labor Progress Note Labor Progress Note/Additional Text: After AROM, patient started having deep decelerations. Started amnioinfusion. Attempting positional changes and allowing infusion to work. Counselled patient on section. Patient not ready for at this time, and we discussed that she is remote from delivery, so if the decelerations continue or she fails to progress, section should be performed.
[2022-10-08] MEDS: BUPRENORPHINE 8 MG SL SCH (17:05)
[2022-10-08] MEDS ORDERED: TERBUTALINE 1 MG/ML VIAL SUBQ PRN ×2 (17:13→17:32)
--- NOTE | 2022-10-08 17:19 | PROVIDER PROGRESS NOTE ---
Labor Progress Note - Uterine Monitoring Uterine Monitoring Mode: positive: External toco Contraction Frequency (min/apart): 1-2 Contraction Intensity: positive: Strong Uterine Resting Tone: positive: Soft - Labor Progress Note Labor Progress Note/Additional Text: Will give dose of terbutaline due to contractions almost every minute and deeper variables. Discussed section with patient and is agreeable.
[2022-10-08] MEDS ORDERED: TERBUTALINE 1 MG/ML VIAL SUBQ ONE (17:22)
[2022-10-08] MEDS ORDERED: LIDOCAINE MPF 2%-EPI 1:200000 20 ML VIAL ONE (17:49)
[2022-10-08] MEDS ORDERED: AZITHROMYCIN INJ 500 MG in SODIUM CHLORIDE 0.9% 250 ML IV ONE (18:00)
[2022-10-08] MEDS ORDERED: CEFAZOLIN 2G/50ML 0.9% NS 2 GM/50 ML BAG IV ONE (18:00)
[2022-10-08] MEDS ORDERED: MORPHINE PF 5 MG/10 ML VIAL ONE (18:15)
[2022-10-08] MEDS ORDERED: miSOPROStoL 200 MCG TABLET ONE ×2 (18:38→19:03)
[2022-10-08] MEDS ORDERED: CARBOPROST TROMETHAMINE 250 MCG/ML AMP IM ONE (18:39)
[2022-10-08] MEDS ORDERED: METHYLERGONOVINE 0.2 MG/ML VIAL ONE (18:39)
[2022-10-08] MEDS ORDERED: ceFAZolin 1 GM VIAL ONE (18:42)
[2022-10-08] MEDS ORDERED: HYDROmorphone 1 MG/ML CARPUJECT ONE ×2 (18:42→20:07)
[2022-10-08] MEDS ORDERED: ACETAMINOPHEN 1,000 MG/100 ML 1,000 MG/100 ML BAG IV ONE (18:50)
[2022-10-08] MEDS ORDERED: SODIUM CHLORIDE 0.9% 10 ML VIAL IVP ONE (18:56)
[2022-10-08] MEDS ORDERED: PROPOFOL 200 MG/20 ML VIAL IVP ONE (18:56)
[2022-10-08] MEDS ORDERED: ROPIVACAINE 0.5% PF 20 ML VIAL ONE (19:05)
[2022-10-08] MEDS ORDERED: KETOROLAC 30 MG/ML VIAL ONE (19:24)
[2022-10-08] MEDS ORDERED: DEXAMETHASONE 4 MG/ML VIAL ONE (19:25)
[2022-10-08] MEDS ORDERED: METOCLOPRAMIDE 10 MG/2 ML VIAL IVP PRN (19:27)
[2022-10-08] MEDS ORDERED: MORPHINE 2 MG/ML CARPUJECT IVP PRN (19:27)
[2022-10-08] MEDS ORDERED: NALOXONE 0.4 MG/ML VIAL IVP PRN (19:27)
[2022-10-08] MEDS ORDERED: ePHEDrine 50 MG/ML VIAL IVP PRN (19:27)
[2022-10-08] MEDS ORDERED: ATROPINE ABBOJECT 1 MG/10 ML SYRINGE IVP PRN (19:27)
[2022-10-08] MEDS ORDERED: fentaNYL 100 MCG/2 ML VIAL IVP PRN (19:27)
[2022-10-08] MEDS ORDERED: OXYTOCIN 10 UNIT/ML VIAL ONE (19:29)
[2022-10-08] MEDS ORDERED: LACTATED RINGERS 500 ML IV ONE (19:51)
[2022-10-08] MEDS ORDERED: LACTATED RINGERS 1,000 ML IV SCH ×2 (20:00→21:00)
[2022-10-08] MEDS ORDERED: SUCCINYLCHOLINE 200 MG/10 ML VIAL ONE (20:02)
[2022-10-08] MEDS ORDERED: OXYTOCIN/SODIUM CHLORIDE 500 ML IV PRN (20:04)
[2022-10-08] MEDS ORDERED: SODIUM CHLORIDE FLUSH 0.9% 10 ML SYRINGE IVP PRN (20:04)
[2022-10-08] MEDS ORDERED: ONDANSETRON ODT 4 MG TABLET TL PRN (20:04)
[2022-10-08] MEDS: HYDROmorphone 0.5 MG/0.5 ML SYRINGE IVP PRN ×3 (20:07→20:22)
--- NOTE | 2022-10-08 20:15 | OPERATIVE REPORT ---
Operative Report - General Admit Date: 10/08/22 Planned Procedure: Primary low-transverse section Pre-Op Diagnosis: 39 weeks gestation, category 2 tracing remote from delivery Procedure Performed: Primary low-transverse section Post Op Diagnosis: 39 weeks gestation, category 2 tracing remote from delivery - Procedure Note Primary Surgeon: Favio Parr MD Secondary Surgeon: ANGELA Daniel Anesthesia Provider: Nika So CRNA Anesthesia Technique: General ET tube Pathology: None IV Fluids (mL): 1,600 Estimated Blood Loss (mL): 1,000 Urine Output (mL): 700 Complications: None - Other Other Information/Narrative: Pre-Op diagnoses: 39 weeks gestation IUGR Opioid abuse A2 gestational diabetes managed with oral antihyperglycemic's Category 2 tracing Postop diagnoses: Same Status post primary low-transverse section Delivery of live fritz hemorrhage Patient is admitted at 39 weeks gestation for planned induction of labor. She received 1 dose of misoprostol followed by a cervical ripening balloon. This was uncomfortable so she received nitrous oxide then an epidural for pain control. She was then started on oxytocin as she did not tolerate cervical exam for membrane rupture. After charbel regularly with better application of the head, artificial rupture membranes was performed. After this, she began having repetitive variable decelerations and received an amnioinfusion. Oxytocin was stopped. This temporarily alleviated them, but they began becoming unresponsive to therapy. She began having contractions every 1 to 2 minutes so she eventually received a dose of terbutaline. This improved the heart tracing, but as she was remote from delivery, decision made to proceed to the OR. section was recommended. Risks, benefits and alternatives were discussed including but not limited to infection, bleeding that may require blood products or hysterectomy for life saving measures, injury to surrounding organs including but not limited to bowel, bladder, ureters, tubes and ovaries and/or the baby. Should injury occur it could require longer/additional surgery to repair. The patient stated understanding and desired to proceed. All questions were answered posed by patient. Prior to being taken to the OR, 2 grams of cefazolin IV and 500 mg of azithromycin were administered. The patient was taken to the operating room but the epidural was no longer working and patient was shaking and painful and did not believe she could tolerate the spinal anesthesia. She requested general anesthesia. She was then prepared and draped in the usual sterile fashion in the dorsal supine position with a leftward tilt displacing the uterus. Monique was draining to gravity. SCDs were on bilateral lower extremities. There was no kennel technician available, so preoperative count was not performed. After general anesthesia was performed, a pfannenstiel skin incision was then made with the scalpel and carried through to the underlying layer of fascia. The fascia was incised in the midline and the incision extended laterally bluntly. The superior aspect of the facial incision was then elevated and the underlying rectus muscles dissected off sharply. Attention was then turned to the inferior aspect of this incision which in a similar fashion was elevated and the rectus muscle dissected off sharply. The rectus muscles were in the midline. The peritoneum identified and opened bluntly. The peritoneal incision was then extended superiorly and inferiorly with good visualization of the bladder. The bladder blade was inserted. The lower uterine segment was identified and incised in a transverse fashion with the scalpel. The uterine incision was then extended bluntly laterally. Artificial rupture of membranes demonstrated a small amount of clear fluid. The bladder blade was removed. The fetus was in a cephalic, occiput posterior presentation. The infants head delivered atraumatically. The anterior shoulders were delivered followed by the posterior shoulders then the remainder of the body. The infants mouth and nose were bulb suctioned. The umbilical cord was clamped times two and cut. The was handed to the pediatric team. Cord blood was obtained. The placenta was removed with gentle traction. Oxytocin were added to IVF and allowed to run freely. The uterus was exteriorized and cleared of all clots and debris. The uterine incision was inspected and found to be without any extensions and was repaired with 0 Vicryl in a running, locked fashion. As uterine tone was still weak, likely due to the previously administered terbutaline, patient received a subcutaneous dose of 200 mcg of Methergine. A second imbricating layer was performed. Upon inspection, the repaired hysterotomy was found to be hemostatic. The uterus was firm and returned to the abdomen. The gutters were cleared of all clots and debris. Oozing was noted from the peritoneal surface of the hysterotomy and bladder transition zone, so Surgicel was placed. The peritoneum was closed with a running suture of 2-0 Vicryl. The fascia was reapproximated with 0 Vicryl in a running fashion. The subcutaneous tissue was closed with 2-0 Vicryl. The skin was closed in a subcuticular fashion with 4-0 Monocryl. The wound was covered with Steri-Strips. Abdominal rub was performed to clear a small amount of blood from the uterus. Postoperatively, she received 800 mcg of misoprostol rectally. The patient tolerated the procedure well. No preoperative count was performed, so postoperative x-ray was performed to ensure no surgical tools were left intraoperatively, and the abdomen was clear of surgical instruments and opera tive tools. The patient was taken to the recovery room in stable condition. I appreciate the assistance of Reva Branch during this procedure, and the assistance in retraction, visualization, dissection, and overall assistance during the case were instrumental to the patient's wellbeing.
[2022-10-08] MEDS ORDERED: HYDROmorphone 0.5 MG/0.5 ML SYRINGE ONE (20:23)
--- NOTE | 2022-10-08 20:26 | ANESTHESIA POST OP EVALUATION ---
Anesthesia Post Eval - Post Anesthesia Eval Vitals: Last Vital Signs Temp 36.9 C 10/08/22 20:10 Pulse 87 10/08/22 20:21 Resp 18 10/08/22 20:21 BP 126/71 10/08/22 20:21 Pulse Ox 99 10/08/22 20:21 O2 Flow Rate CV Function Including HR & BP: Stable Pain Control: Satisfactory Nausea & Vomiting: Negative Mental Status: Baseline Respiratory Status: Airway Patent Hydration Status: Satisfactory Anesthesia Complications: None
[2022-10-08] MEDS ORDERED: METHYLERGONOVINE 0.2 MG/ML AMP IM ONE (20:42)
[2022-10-08] MEDS ORDERED: miSOPROStoL 200 MCG TABLET PR ONE (20:43)
[2022-10-08] MEDS: oxyCODONE 5 MG TABLET PO PRN (21:50)
[2022-10-09] MEDS ORDERED: SODIUM CHLORIDE FLUSH 0.9% 10 ML SYRINGE IVP SCH (01:00)
[2022-10-09] MEDS: oxyCODONE 5 MG TABLET PO PRN ×5 (01:29→20:30)
[2022-10-09] MEDS: KETOROLAC 30 MG/ML VIAL IVP SCH ×3 (01:29→14:15)
[2022-10-09] MEDS: ACETAMINOPHEN 500 MG TABLET PO SCH ×3 (03:31→19:17)
[2022-10-09] MEDS: SIMETHICONE CHEW 80 MG TABLET PO PRN ×3 (05:32→19:18)
[2022-10-09] MEDS: BUPRENORPHINE 8 MG SL SCH (08:19)
[2022-10-09] MEDS: DOCUSATE SODIUM 100 MG CAPSULE PO SCH ×2 (08:35→21:00)
--- NOTE | 2022-10-09 10:01 | XRAY Report ---
PROCEDURE: Abdomen 1 View X-Ray INDICATIONS: POST SECTION TECHNIQUE: One view of the abdomen acquired. COMPARISON: None FINDINGS: Surgical changes and devices: None. Bowel: Bowel gas pattern suggests a mild small bowel ileus consistent with recent surgery. No suspic ious changes. Soft tissues: No suspicious abdominal calcifications. Visualized solid organ contours appear normal in size. Bones: No suspicious bony lesions. IMPRESSION: 1. No evidence of retained surgical foreign body. Reviewed by: Ann Garcia MD on 10/09/2022 9:59 AM PDT Approved by: Ann Garcia MD on 10/09/2022 9:59 AM PDT Station ID: [id number]
--- NOTE | 2022-10-09 10:20 | PROVIDER PROGRESS NOTE ---
Subjective - Prog Note Date Prog Note Date: 10/09/22 - Subjective Subjective: Subjective Patient reports she is doing well. Lochia appropriate. Denies heavy bleeding. Ambulating. Pelvic and abdominal pain well-controlled. Tolerating oral intake. Diet: Regular. Voiding without difficulty. Passing flatus. Denies BM. Patient is bonding with baby in room Breast feeding going well. Denies feeling lightheaded, dizzy or excessively fatigued. Control: Condoms Objective General: Alert, oriented, no apparent distress. Cardiovascular: Regular rate. Regular rhythm. Lungs: No increased work of breathing. Abdomen: Uterus firm. Below umbilicus. Appropriately tender Extremities: No pain on palpation. No cords palpated. Distal pulses intact. Incision: Clean, dry, and intact. Assessment and Plan day 1. -Routine care -Anticipate discharge in 1 to 2 days Substance use disorder -Using pain control medications. Will need to wait 24 hours after her last dose of oxycodone prior to resuming her buprenorphine A2 gestational diabetes -Fasting blood glucose normal today. Metformin discontinued. -Will need 2-hour glucose tolerance test after 6 weeks Objective - Vital Signs/Intake & Output Vital Signs: Vital Signs x48h Temp Pulse Resp BP Pulse Ox 10/09/22 03:29 97.5 F L 72 16 103/57 L 99 Intake & Output: Intake & Output 10/06/22 10/07/22 10/08/22 10/09/22 23:59 23:59 23:59 23:59 Intake Total 1397.566 300 Output Total 1225 450 Balance 172.566 -150 - Lab Results Fish Bones: 10/09/22 11:05 Other Labs: Lab Results x24hrs 10/09/22 10/08/22 10/08/22 Range/Units 05:18 16:52 14:32 POC Whole Bld Glucose 90 75 137 H (70 - 100) mg/dL 10/08/22 Range/Units 11:17 POC Whole Bld Glucose 79 (70 - 100) mg/dL
[2022-10-09 11:18] LABS: BASOPHILS % (AUTO) 0.3 %; EOSINOPHILS % (AUTO) 0.2 %; HCT - HEMATOCRIT 27.5 % (37.0-47.0); HGB - HEMOGLOBIN 9.5 g/dL (12.0-16.0); LYMPHOCYTES # (AUTO) 1.9 10^3/uL (1.5-3.5); MEAN CORPUSCULAR HEMOGLOBIN 31.3 pg (27.0-31.0); MEAN CORPUSCULAR HGB CONC 34.5 g/dL (32.0-36.0); MEAN CORPUSCULAR VOLUME 90.5 fL (81.0-99.0); MEAN PLATELET VOLUME 8.7 fL (7.9-10.8); MONOCYTES # (AUTO) 1.4 10^3/uL (0.0-1.0); MONOCYTES % (AUTO) 10.4 %; NEUTROPHILS # (AUTO) 10.2 10^3/uL (1.5-6.6); NEUTROPHILS % (AUTO) 74.6 %; PLT - PLATELET COUNT 197 10^3/uL (130-450); RED BLOOD COUNT 3.04 10^6/uL (4.20-5.40); RED CELL DISTRIBUTION WIDTH 12.6 % (12.0-15.0); WHITE BLOOD COUNT 13.6 x10^3/uL (4.8-10.8)
[2022-10-09] MEDS: methocarbamoL 500 MG TABLET PO PRN ×3 (14:15→20:59)
[2022-10-09] MEDS: IBUPROFEN 600 MG TABLET PO SCH (20:30)
[2022-10-09] MEDS ORDERED: BISACODYL 10 MG SUPP PR PRN (20:47)
[2022-10-09] MEDS: QUEtiapine 100 MG TABLET PO SCH (23:26)
[2022-10-10] MEDS: ACETAMINOPHEN 500 MG TABLET PO SCH ×3 (03:46→19:12)
[2022-10-10] MEDS: IBUPROFEN 600 MG TABLET PO SCH ×2 (03:47→09:21)
[2022-10-10] MEDS: BUPRENORPHINE 8 MG SL SCH ×4 (06:00→20:30)
[2022-10-10] MEDS: methocarbamoL 500 MG TABLET PO PRN ×3 (08:37→21:05)
[2022-10-10] MEDS: DOCUSATE SODIUM 100 MG CAPSULE PO SCH ×2 (08:37→21:29)
[2022-10-10] MEDS: SIMETHICONE CHEW 80 MG TABLET PO PRN ×2 (08:37→17:51)
--- NOTE | 2022-10-10 11:33 | PROVIDER PROGRESS NOTE ---
Subjective - Prog Note Date Prog Note Date: 10/10/22 Prog Note Time: 10:00 - Subjective Pt reports feeling: Improved Subjective: Pain 10. Taking ibuprofen and acetaminophen. Appropriate lochia. Ambulating. Voiding. Tolerating regular diet. Breast pumping. Mood is good. Patient's mother in room with patient and . Objective - Vital Signs/Intake & Output Reviewed Vital Signs: Yes Vital Signs: Vital Signs x48h Temp Pulse Resp BP Pulse Ox 10/10/22 08:42 97.9 F 87 18 101/66 10/10/22 03:45 76 16 98/47 L 98 Intake & Output: Intake & Output 10/07/22 10/08/22 10/09/22 10/10/22 23:59 23:59 23:59 23:59 Intake Total 2397.570 910 150 Output Total 1225 1200 Balance 1172.570 -290 150 - Objective General Appearance: positive: No acute distress Eyes Bilateral: positive: EOMI Respiratory: positive: No respiratory distress Abdomen: positive: Other (FF, incision c/d/i, appropriately tender) Skin: positive: Color nml Extremities: positive: Non-tender Neurologic/Psychiatric: positive: Oriented x3 - Lab Results Fish Bones: 10/09/22 11:05 Assessment/Plan - Problem List (1) care following delivery Impression: 22yo s/p PCD 10/08/22 POD#2 doing well - Anticipate discharge tomorrow - Continue care - May resume Subutex tonight
[2022-10-10] MEDS: KETOROLAC 30 MG/ML VIAL IVP SCH (15:00)
[2022-10-10] MEDS: IBUPROFEN 800 MG TABLET PO SCH ×2 (15:03→21:05)
[2022-10-10] MEDS ORDERED: hydrOXYzine PAMOATE 25 MG CAPSULE PO PRN (17:56)
[2022-10-11] MEDS: QUEtiapine 100 MG TABLET PO SCH (00:54)
[2022-10-11] MEDS: SIMETHICONE CHEW 80 MG TABLET PO PRN ×3 (04:39→18:11)
[2022-10-11] MEDS: IBUPROFEN 800 MG TABLET PO SCH ×4 (04:39→22:26)
[2022-10-11] MEDS: ACETAMINOPHEN 500 MG TABLET PO SCH ×3 (04:39→20:22)
[2022-10-11] MEDS: methocarbamoL 500 MG TABLET PO PRN ×3 (04:40→18:11)
[2022-10-11] MEDS: BUPRENORPHINE 8 MG SL SCH ×5 (06:19→22:26)
[2022-10-11] MEDS: DOCUSATE SODIUM 100 MG CAPSULE PO SCH ×2 (10:32→22:27)
--- NOTE | 2022-10-11 11:27 | PROVIDER PROGRESS NOTE ---
Subjective - Prog Note Date Prog Note Date: 10/11/22 Prog Note Time: 11:00 - Subjective Pt reports feeling: Improved Subjective: Comfortable, pain /10. Taking ibuprofen and acetaminophen. Prn methocarbamol, quetiapine, hydroxyzine. Minimal lochia. Ambulating. Voiding. BM yesterday. Tolerating regular diet. Breast pumping. Mood is good. rooming in with patient and monitored for JUAN DAVID. Patient would also like to remain inpatient. Likely discharge tomorrow. Objective - Vital Signs/Intake & Output Reviewed Vital Signs: Yes Vital Signs: Vital Signs x48h Temp Pulse Resp BP Pulse Ox 10/11/22 09:00 98.1 F 85 16 126/83 H 100 10/11/22 04:42 98.4 F 83 15 109/61 98 Intake & Output: Intake & Output 10/08/22 10/09/22 10/10/22 10/11/22 23:59 23:59 23:59 23:59 Intake Total 2397.570 910 650 800 Output Total 1225 1200 1 Balance 1172.570 290 649 800 - Objective General Appearance: positive: No acute distress Eyes Bilateral: positive: EOMI Respiratory: positive: No respiratory distress Abdomen: positive: Other (appropriately tender, incision c/d/i) Skin: positive: Color nml Extremities: positive: Non-tender, No pedal edema Neurologic/Psychiatric: positive: Oriented x3 - Lab Results Fish Bones: 10/09/22 11:05 Assessment/Plan - Problem List (1) care following delivery Impression: 22yo s/p PCD 10/08/22 POD#3 - Continue , postoperative care - Subutex resumed last night. Oxycodone discontinued. - May decrease VS, checks ASHS - Anticipate mother and baby discharge tomorrow
[2022-10-12] MEDS: QUEtiapine 100 MG TABLET PO SCH (00:47)
[2022-10-12] MEDS: ACETAMINOPHEN 500 MG TABLET PO SCH ×2 (04:34→08:40)
[2022-10-12] MEDS: methocarbamoL 500 MG TABLET PO PRN (04:35)
[2022-10-12] MEDS: BUPRENORPHINE 8 MG SL SCH (06:00)
[2022-10-12] MEDS: DOCUSATE SODIUM 100 MG CAPSULE PO SCH (08:18)
[2022-10-12] MEDS: IBUPROFEN 800 MG TABLET PO SCH (08:18)
[2022-10-12 09:10] VITALS: BP 112/74
--- NOTE | 2022-10-12 09:30 | DISCHARGE SUMMARY ---
Discharge Summary Admit Date: 10/07/22 Discharge Date: 10/12/22 Discharging Provider: Favio dinero MD Code Status: Attempt Resuscitation Condition at Discharge: Good Discharge Disposition: 01 Home, Self Care - DIAGNOSES Admission Diagnoses: 39 weeks gestation A2 gestational diabetes managed with oral antihyperglycemic's IUGR Opioid use disorder Discharge Diagnoses with Status of Each Condition: 39 weeks gestation A2 gestational diabetes managed with oral antihyperglycemic's IUGR Opioid use disorder Status post primary low-transverse section - HPI History of Present Illness: Subjective Patient reports she is doing well. Lochia appropriate. Denies heavy bleeding. Ambulating. Pelvic and abdominal pain well-controlled. Tolerating oral intake. Diet: Regular. Voiding without difficulty. Passing flatus. Denies BM. Patient is bonding with baby in room Breast feeding going well. Denies feeling lightheaded, dizzy or excessively fatigued. Objective General: Alert, oriented, no apparent distress. Cardiovascular: Regular rate. Regular rhythm. Lungs: No increased work of breathing. Abdomen: Uterus firm. Below umbilicus. No guarding or rebound. Extremities: No pain on palpation. No cords palpated. Distal pulses intact. Incision: Clean, dry, and intact. - HOSPITAL COURSE Hospital Course: Patient admitted at 39 weeks gestation for induction of labor secondary to gestational diabetes and IUGR. She also had opioid use disorder in an d was managed with Subutex. She did relapse on fentanyl once during . Patient was admitted for induction with misoprostol followed by cervical ripening balloon, oxytocin, amniotomy. Patient developed category 2 tracing remote from delivery and discussed section. This was recommended and patient agreed. Her epidural was not working, and patient did not believe she could tolerate a spinal, so she elected for general anesthesia. section under general anesthesia was unremarkable with delivery of a healthy . Patient did very well . While she initially required some stronger opioids, she transition back to her Subutex after 24 hours after last dose. did well, and both were discharged on day 4. - ALLERGIES Allergies/Adverse Reactions: Allergies Allergy/AdvReac Type Severity Reaction Status Date / Time No Known Drug Allergies Allergy Verified 07/22/22 11:39 - MEDICATIONS Home Medications: Ambulatory Orders Medication Instructions Recorded Confirmed Metformin HCl [Metformin ER 1,000 mg PO DAILY 10/08/22 10/08/22 Gastric] QUEtiapine [SEROquel] 100 mg PO QPM 10/08/22 10/08/22 buprenorphine HCL [Buprenorphine 4 mg SL TID 10/08/22 10/08/22 HCl] Ibuprofen [Motrin] 600 mg PO Q6H PRN #30 tab 10/12/22 methocarbamoL [Methocarbamol] 500 mg PO BID #10 tablet 10/12/22 - LABS Result Diagrams: 10/09/22 11:05 - FOLLOW UP Follow Up: [facility] - TIME SPENT Time Spent in Discharge (Minutes): 20
--- NOTE | 2022-10-12 09:34 | Discharge Plan ---
Discharge Plan Problem Reviewed?: Yes Disposition: Home, Self Care Condition: Good Prescriptions: methocarbamoL [Methocarbamol] 500 mg PO BID #10 tablet Ibuprofen [Motrin] 600 mg PO Q6H PRN #30 tab PRN Reason: Pain Diet: Regular Activity Restrictions: Additional Comments Shower Restrictions: No Instruction Topics: C Section Dc Additional Instructions or Follow Up instructions: Take ibuprofen 600-800 mg every 6-8 hours and acetaminophen 1000mg every 6 hours for pain. Please do this consistently for several days then can space out. No Smoking: If you smoke, Please STOP! Call for help.
[2022-10-12] MEDS ORDERED: VARICELLA VACCINE LIVE/PF 1,350 UNIT/0.5 ML VIAL SUBQ ONE (10:04)
[2022-10-12] MEDS ORDERED: MEASLES,MUMPS & RUBELLA VACC 0.5 ML VIAL SUBQ ONE (10:04)
--- NOTE | 2022-10-12 11:59 | Labor Flowsheet ---
Labor Flowsheet Datetime Report Generated by CPN: 10/12/2022 11:59 Datetime: 10/12/2022 08:15 VITAL SIGNS NBP Sys/Peggy/Mean (mmHg): 112 : 74 : 82 Pulse: 81 LaborFlag: Labor Datetime: 10/12/2022 04:49 SpO2 (%): 97 Datetime: 10/08/2022 18:02 Communication Comments: Pt transferred to OR Datetime: 10/08/2022 18:00 UTERINE ACTIVITY Monitor Mode: Internal Frequency (min): 2-3 Duration (sec): 50-60 Pattern: Normal: <= 5 Contractions in 10 Minutes Resting Tone (Palpate): Relaxed Resting Tone IUP (mmHg): 20-25 Intensity IUP (mmHg): 30-70 [place] Units (mmHg): 170 Pitocin Checklist: IUPC Resting Tone less than 25 mmHg ASSESSMENT A Monitor Mode: External US FHR Baseline Rate : 130 Variability: Moderate 6-25 bpm Accelerations: 15X15 Decelerations: Variable Datetime: 10/08/2022 17:57 Temperature (C): 36.9 Datetime: 10/08/2022 17:38 Pain Assessment Comments: Pt decline nitrous oxide for comfort Datetime: 10/08/2022 17:32 Connect Comments: Decision for C/S Datetime: 10/08/2022 17:30 Quality: Moderate Category: Category II Datetime: 10/08/2022 17:23 Medication Comments: Terb 0.25mg SQ, left arm Datetime: 10/08/2022 17:22 Patient Care Comments: Bloody show increased, abdomen soft between ctxs Datetime: 10/08/2022 17:12 VAGINAL EXAM Dilatation (cm): 6.0 Effacement (%): 80 Station: -1 Exam by: Dr. Keshav Datetime: 10/08/2022 16:54 PAIN Pain Scale: 10 Datetime: 10/08/2022 16:47 Pain Coping: Requesting Pain Medication or Epidural; Crying; Writhing Comfort Measures: Coaching; Family Support; Anesthesia Notified Datetime: 10/08/2022 16:30 Actions for Decelerations: Side to Side Datetime: 10/08/2022 16:15 Patient Position/Activity: HOB Lowered; Right Lateral Datetime: 10/08/2022 16:00 Monitor Interventions for UA: IUPC Inserted Datetime: 10/08/2022 15:45 Pain Presence: Intermittent Pain Type: Contraction Pain Goal: 5 Datetime: 10/08/2022 15:37 MEDICATIONS Pitocin (milliunits): Discontinued Datetime: 10/08/2022 15:30 Temperature Route: Oral Datetime: 10/08/2022 15:12 Epidural Procedure Other: Delivery Dose Anesthesia Comments: HOSPICE VOLUNTEER Liu at bedside Datetime: 10/08/2022 14:59 Membrane Status: Ruptured Membranes Rupture Method: Artificial Amniotic Fluid Color: Clear Amniotic Fluid Amount: Large Amniotic Fluid Odor: Normal Vaginal Bleeding: Normal Show Cervix, Consistency: Soft Cervix, Position: Anterior Datetime: 10/08/2022 14:00 Stage of : Labor FHR Baseline Changes: No Baseline Change ASSESSMENT B Monitor Mode: External US Pain Location: Back Pain Relief Measures: Comfort Measures Oxygen Method: Room Air Datetime: 10/08/2022 13:30 Respirations: 16 Datetime: 10/08/2022 12:30 Vaginal Exam Comments: uncomfortable with exam, will wait to AROM Datetime: 10/08/2022 09:51 Analgesics/Sedatives: Nubain (mg) @ 2.5 Datetime: 10/08/2022 08:33 Presentation 'A': Cephalic Datetime: 10/08/2022 08:00 Hygiene: Underpad Changed ANESTHESIA Anesthesia Plans: Epidural Anesthesia Level Check: T10- Umbilicus Datetime: 10/08/2022 06:05 Bedside Blood Glucose: 91 Datetime: 10/08/2022 05:30 Contraction Comments: uterine irritability and contractions grouping noted Datetime: 10/08/2022 05:00 Vital Sign Comments: Patient repositioned to exagerrated left lying, bp cuff positioned on right ar m above the level of the heart Datetime: 10/08/2022 03:08 Cervical Ripening Agents: Monique Balloon; Cytotec @ Strip Reviewed by: Vincent Floyd RN Nurse Giving Report: Vincent Floyd Datetime: 10/08/2022 03:01 I/O Interventions: Monique Cath Inserted Datetime: 10/08/2022 00:48 Epidural Procedure: Cath Placed Datetime: 10/08/2022 00:40 PROCEDURE TIME OUT Procedure Verify: Correct Patient Identity; Accurate Procedure Consent Form; Agreement on Procedure to be Done; Correct Patient Position; Safety Precautions Based on Patient History or Medication Use Epidural Positioning: Sitting Datetime: 10/08/2022 00:24 Provider Reviewed Strip: No COMMUNICATION Communication: Call/Page Placed to Provider Provider Notified (Name): M. Aube, HOSPICE VOLUNTEER Notification Reason: Other Datetime: 10/07/2022 21:00 MATERNAL ASSESSMENT Level of Consciousness: Alert DTR's/Clonus: DTRs 2+ Headache: Denies Breath Sounds, Left: Clear and Equal Breath Sounds, Right: Clear and Equal Nausea/Vomiting: Denies RUQ Epigastric Pain: Denies Datetime: 10/07/2022 20:59 TEACHING Instructional Method: Patient Instructed; Family/Support Person Instructed; Verbalized Understandin g Plan of Care: Plan of Care Discussed; Vaginal Delivery; Labor; Induction Labor/Induction: Cervical Ripening; Induction Datetime: 10/07/2022 20:29 PATIENT CARE IV/Blood Work: IV Started; IV Saline Locked
== END 2022-10-12 11:25 | disposition home or self-care (01) | DRG 787 ==
LOC: FBP 19:55 → OBSVTOIN 10-08 01:34
PROVIDERS: ADMIT Obstetrics & Gynecology; ATTEND Obstetrics & Gynecology
PROC: 10D00Z1 Extraction of Products of Conception, Low, Open Approach (ICD-10-PCS; 2022-10-08)
PROC: 10907ZC Drainage of Amniotic Fluid, Therapeutic from Products of Conception, Via Natural or Artificial Opening (ICD-10-PCS; 2022-10-08)
PROC: 3E0E7GC Introduction of Other Therapeutic Substance into Products of Conception, Via Natural or Artificial Opening (ICD-10-PCS; principal; 2022-10-08 18:00)
DX: O24.425 Gestational diabetes mellitus in childbirth, controlled by oral hypoglycemic drugs (principal); O72.1 Other immediate postpartum hemorrhage; O99.324 Drug use complicating childbirth; O36.5930 Maternal care for other known or suspected poor fetal growth, third trimester, not applicable or unspecified; O76 Abnormality in fetal heart rate and rhythm complicating labor and delivery; F11.10 Opioid abuse, uncomplicated; O69.81X0 Labor and delivery complicated by cord around neck, without compression, not applicable or unspecified; Z3A.39 39 weeks gestation of pregnancy; Z37.0 Single live birth
CPT/HCPCS: 36415; 74018; 85025; 86850; 86900; 86901; 90716; A9270; G0378; J0131; J0330; J0690; J1170; J2210; J2274; J2300; J2795; J7120

== ENCOUNTER 2023-02-25 11:52 | Outpatient (CLI) | payer OTHER, MEDICAID ==
[2023-02-25 18:12] LABS: THYROID STIMULATING HORMONE 0.5 uIU/mL (0.34-5.60)
== END 2023-02-25 11:53 | disposition home or self-care (01) ==
LOC: LAB.N 11:52
PROVIDERS: ATTEND Obstetrics & Gynecology
DX: L65.9 Nonscarring hair loss, unspecified (principal)
CPT/HCPCS: 36415; 84443

== ENCOUNTER 2023-04-16 04:21 | Emergency (ER) | payer OTHER, MEDICAID ==
[2023-04-16] MEDS ORDERED: ONDANSETRON 4 MG/2 ML VIAL IVP STA (04:43)
[2023-04-16] MEDS ORDERED: KETOROLAC 15 MG/ML VIAL IVP STA (04:43)
[2023-04-16] MEDS ORDERED: FAMOTIDINE 20 MG/2 ML VIAL IVP STA (04:43)
[2023-04-16] MEDS ORDERED: SODIUM CHLORIDE 0.9% 1,000 ML IV STA (04:43)
--- NOTE | 2023-04-16 04:47 | ED Physician Documentation ---
History of Present Illness - Stated complaint Stated Complaint: HEAD PX/N/V - Chief complaint Chief Complaint: General - History obtained from History obtained from: Patient - Additonal information Additional information: 23-year-old woman, previously healthy, presents to the emergency department with nonbloody nonbilious nausea and vomiting and nonbloody diarrhea as well as for the past 2 days. Patient also has full body myalgias. Endorses mild sore throat since waking up. Denies fever or chills. Did not get her flu shot yet this year. Review of Systems Constitutional: reports: Myalgias, Fatigue. denies: Fever, Chills Cardiac: denies: Chest pain / pressure Respiratory: denies: Dyspnea, Cough GI: reports: Nausea, Vomiting, Diarrhea. 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 : None HEENT: None Psych: Depression, Anxiety, Other Musculoskeletal: None Derm: None - Past Surgical History Past Surgical History: No - Present Medications Home Medications: Ambulatory Orders Medication Instructions Recorded Confirmed Metformin HCl [Metformin ER 1,000 mg PO DAILY 10/08/22 10/08/22 Gastric] QUEtiapine [SEROquel] 100 mg PO QPM 10/08/22 10/08/22 buprenorphine HCL [Buprenorphine 4 mg SL TID 10/08/22 10/08/22 HCl] Ibuprofen [Motrin] 600 mg PO Q6H PRN #30 tab 10/12/22 methocarbamoL [Methocarbamol] 500 mg PO BID #10 tablet 10/12/22 - Allergies Allergies/Adverse Reactions: Allergies Allergy/AdvReac Type Severity Reaction Status Date / Time No Known Drug Allergies Allergy Verified 04/16/23 04:39 - Social History Does the pt smoke?: No Smoking Status: Never smoker Does the pt drink ETOH?: No Does the pt have substance abuse?: No - Immunizations Immunizations are current?: Yes - POLST Patient has POLST: No PD ED PE NORMAL - Vitals Vital signs reviewed: Yes - General General: Alert and oriented X 3, No acute distress, Well developed/nourished - HEENT HEENT: Atraumatic, PERRL, EOMI, Moist mucous membranes, Pharynx benign - Neck Neck: Supple, no meningeal sign - Cardiac Cardiac: Other (Tachycardic rate, regular rhythm) - Respiratory Respiratory: No respiratory distress, Clear bilaterally - Abdomen Abdomen: Non tender, Non distended - Derm Derm: Normal color, Warm and dry - Extremities Extremities: No edema - Neuro Neuro: Alert and oriented X 3, color control supervisor 2-12 intact, No motor deficit, No sensory deficit Results - Vitals Vitals: Vital Signs - 24 hr 04/16/23 04/16/23 04/16/23 04:31 04:34 06:15 Temperature 36.6 C Heart Rate 99 106 H 88 Respiratory 18 18 18 Rate Blood Pressure 110/62 120/86 H 99/64 O2 Saturation 97 99 98 Oxygen O2 Source Room air - Labs Labs: Laboratory Tests 04/16/23 04/16/23 04/16/23 04:55 04:55 04:55 WBC 3.8 L RBC 3.92 L Hgb 12.1 Hct 35.2 L MCV 89.8 MCH 30.9 MCHC 34.4 RDW 12.5 Plt Count 231 MPV 8.7 Neut # (Auto) 2.8 Lymph # (Auto) 0.4 L [place] # (Auto) 0.6 Eos # (Auto) 0.0 Baso # (Auto) 0.0 Absolute Nucleated RBC 0.00 Nucleated RBC % 0.0 Sodium 135 Potassium 3.6 Chloride 103 Carbon Dioxide 24 Anion Gap 8.0 BUN 10 Creatinine 0.6 Estimated GFR (MDRD) 122 Glucose 115 H Calcium 9.2 Total Bilirubin 0.3 AST 18 ALT 13 Alkaline Phosphatase 63 Total Protein 7.0 Albumin 4.6 Globulin 2.4 Albumin/Globulin Ratio 1.9 Lipase 15 Urine Color Urine Clarity Urine pH Ur Specific Tyler Urine Protein Urine Glucose (UA) Urine Ketones Urine Occult Blood Urine Nitrite Urine Bilirubin Urine Urobilinogen Ur Leukocyte Esterase Ur Microscopic Review Urine Culture Comments Urine HCG, Qual Nasal Adenovirus (PCR) NOT DETECTED Nasal B. parapertussis DNA (PCR) NOT DETECTED Nasal Coronavir 229E PCR NOT DETECTED Nasal Coronavir HKU1 PCR NOT DETECTED Nasal Coronavir NL63 PCR NOT DETECTED Nasal Coronavir OC43 PCR NOT DETECTED Nasal Enterovir/Rhinovir PCR NOT DETECTED Nasal Influenza B PCR NOT DETECTED Nasal Influenza A PCR NOT DETECTED Nasal Parainfluen 1 PCR NOT DETECTED Nasal Parainfluen 2 PCR NOT DETECTED Nasal Parainfluen 3 PCR NOT DETECTED Nasal Parainfluen 4 PCR NOT DETECTED Nasal RSV (PCR) NOT DETECTED Nasal B.pertussis DNA PCR NOT DETECTED Nasal C.pneumoniae (PCR) NOT DETECTED Mayco Human Metapneumo PCR NOT DETECTED Nasal M.pneumoniae (PCR) NOT DETECTED Nasal SARS-CoV-2 (PCR) DETECTED A 04/16/23 04/16/23 04:55 04:55 WBC RBC Hgb Hct MCV MCH MCHC RDW Plt Count MPV Neut # (Auto) Lymph # (Auto) [place] # (Auto) Eos # (Auto) Baso # (Auto) Absolute Nucleated RBC Nucleated RBC % Sodium Potassium Chloride Carbon Dioxide Anion Gap BUN Creatinine Estimated GFR (MDRD) Glucose Calcium Total Bilirubin AST ALT Alkaline Phosphatase Total Protein Albumin Globulin Albumin/Globulin Ratio Lipase Urine Color YELLOW Urine Clarity CLEAR Urine pH 6.0 Ur Specific Tyler 1.025 Urine Protein NEGATIVE Urine Glucose (UA) NEGATIVE Urine Ketones >=80 H Urine Occult Blood NEGATIVE Urine Nitrite NEGATIVE Urine Bilirubin NEGATIVE Urine Urobilinogen 0.2 (NORMAL) Ur Leukocyte Esterase NEGATIVE Ur Microscopic Review NOT INDICATED Urine Culture Comments NOT INDICATED Urine HCG, Qual NEGATIVE Nasal Adenovirus (PCR) Nasal B. parapertussis DNA (PCR) Nasal Coronavir 229E PCR Nasal Coronavir HKU1 PCR Nasal Coronavir NL63 PCR Nasal Coronavir OC43 PCR Nasal Enterovir/Rhinovir PCR Nasal Influenza B PCR Nasal Influenza A PCR Nasal Parainfluen 1 PCR Nasal Parainfluen 2 PCR Nasal Parainfluen 3 PCR Nasal Parainfluen 4 PCR Nasal RSV (PCR) Nasal B.pertussis DNA PCR Nasal C.pneumoniae (PCR) Mayco Human Metapneumo PCR Nasal M.pneumoniae (PCR) Nasal SARS-CoV-2 (PCR) PD Medical Decision Making - ED course ED course: 23-year-old woman presents with nausea vomiting and diarrhea as well as full body aches. Suspect acute viral illness, possibly flu. RVP sent as well as CBC, abdominal panel, urinalysis and hCG. IV fluids, Pepcid, Toradol, Zofran ordered as well. Patient feeling better s/p meds. COVID+. labs otherwise unremarkable. education given about symptom care. return precautions given. plan to f/u with pcp. Departure - Departure Disposition: 01 Home, Self Care Clinical Impression: Nausea and vomiting, Diarrhea, Headache, Generalized muscle ache, COVID Condition: Stable Instructions: COVID-19 [facility] Comments: You were seen in the emergency department for COVID. You need to stay home and get lots of rest, stay hydrated with gatorade or pedialyte. Please follow-up with your primary care provider and return to the emergency department if you have any new or worsening symptoms or other concerns. Forms: PCP List
[2023-04-16 05:05] LABS: BASOPHILS % (AUTO) 0.5 %; EOSINOPHILS % (AUTO) 0.3 %; HCT - HEMATOCRIT 35.2 % (37.0-47.0); HGB - HEMOGLOBIN 12.1 g/dL (12.0-16.0); LYMPHOCYTES # (AUTO) 0.4 10^3/uL (1.5-3.5); LYMPHOCYTES % (AUTO) 10.9 %; MEAN CORPUSCULAR HEMOGLOBIN 30.9 pg (27.0-31.0); MEAN CORPUSCULAR HGB CONC 34.4 g/dL (32.0-36.0); MEAN CORPUSCULAR VOLUME 89.8 fL (81.0-99.0); MEAN PLATELET VOLUME 8.7 fL (7.9-10.8); MONOCYTES # (AUTO) 0.6 10^3/uL (0.0-1.0); MONOCYTES % (AUTO) 14.3 %; NEUTROPHILS # (AUTO) 2.8 10^3/uL (1.5-6.6); NEUTROPHILS % (AUTO) 73.7 %; PLT - PLATELET COUNT 231 10^3/uL (130-450); RED BLOOD COUNT 3.92 10^6/uL (4.20-5.40); RED CELL DISTRIBUTION WIDTH 12.5 % (12.0-15.0); WHITE BLOOD COUNT 3.8 x10^3/uL (4.8-10.8)
[2023-04-16 05:24] LABS: GLUCOSE, URINE (UA) NEGATIVE (NEGATIVE); KETONES,URINE (UA) >=80 mg/dL (NEGATIVE); LEUKOCYTE ESTERASE, URINE NEGATIVE (NEGATIVE); NITRITE,URINE NEGATIVE (NEGATIVE); OCCULT BLOOD,URINE NEGATIVE (NEGATIVE); PROTEIN,URINE NEGATIVE (NEGATIVE); UROBILINOGEN,URINE 0.2 (NORMAL) E.U./dL (NORMAL)
[2023-04-16 05:30] LABS: BILIRUBIN,URINE NEGATIVE (NEGATIVE); CLARITY,URINE CLEAR (CLEAR); ICTOTEST,URINE NEGATIVE
[2023-04-16 05:35] LABS: ALBUMIN 4.6 g/dL (3.2-5.5)
[2023-04-16] MEDS ORDERED: SODIUM CHLORIDE 0.9% 500 ML IV STA (06:08)
[2023-04-16 06:36] LABS: B. PARAPERTUSSIS- RESP PCR PAN NOT DETECTED; B. PERTUSSIS- RESP PCR PANEL NOT DETECTED; C. PNEUMONIAE- RESP PCR PANEL NOT DETECTED; CORONAVIRUS 229E-RESP PCR NOT DETECTED; CORONAVIRUS HKU1-RESP PCR NOT DETECTED; CORONAVIRUS NL63-RESP PCR NOT DETECTED; CORONAVIRUS OC43-RESP PCR NOT DETECTED; HUMAN METAPNEUMOVIRUS NOT DETECTED; INFLUENZA A- RESP PCR PANEL NOT DETECTED; INFLUENZA B - RESP PCR PANEL NOT DETECTED; M. PNEUMONIAE- RESP PCR PANEL NOT DETECTED; PARAINFLUENZA VIRUS 1 NOT DETECTED; PARAINFLUENZA VIRUS 2 NOT DETECTED; PARAINFLUENZA VIRUS 3 NOT DETECTED; PARAINFLUENZA VIRUS 4 NOT DETECTED; RHINOVIRUS/ENTEROVIRUS NOT DETECTED; RSV- RESP PCR PANEL NOT DETECTED; SARS-CoV-2 -RESP PCR PANEL DETECTED
[2023-04-16 06:50] LABS: HCG UR QUAL NEGATIVE
[2023-04-16 06:52] LABS: ALBUMIN/GLOBULIN RATIO 1.9 (1.0-2.2); BILIRUBIN,TOTAL 0.3 mg/dL (0.2-1.0); CALCIUM 9.2 mg/dL (8.5-10.3); CREATININE 0.6 mg/dL (0.6-1.3); POTASSIUM 3.6 mmol/L (3.5-4.5)
[2023-04-16 07:06] VITALS: BP 96/67; O2SAT 97
== END 2023-04-16 07:08 | disposition home or self-care (01) ==
LOC: ED 04:21
DX: U07.1 COVID-19 (principal)
CPT/HCPCS: 36415; 80053; 81001; 81003; 81025; 83690; 85025; 87086; 87633; 96361; 96374; 96375; 99284

== ENCOUNTER 2023-08-31 08:00 | Outpatient (CLI) | payer BC, MEDICAID ==
[2023-08-31 17:07] LABS: BILIRUBIN,URINE SMALL (NEGATIVE); GLUCOSE, URINE (UA) NEGATIVE (NEGATIVE); KETONES,URINE (UA) NEGATIVE (NEGATIVE); LEUKOCYTE ESTERASE, URINE NEGATIVE (NEGATIVE); NITRITE,URINE NEGATIVE (NEGATIVE); OCCULT BLOOD,URINE LARGE (NEGATIVE); PH,URINE 5.5 PH (5.0-7.5); PROTEIN,URINE 100 mg/dL (NEGATIVE); UROBILINOGEN,URINE 1 (NORMAL) E.U./dL (NORMAL)
[2023-08-31 17:34] LABS: BACTERIA,URINE None Seen /HPF (None Seen); CLARITY,URINE CLOUDY (CLEAR); RBC,URINE TNTC /HPF (0-5); SQUAMOUS EPITHELIAL CELL,UR MANY Squamous (<= Few)
== END 2023-08-31 23:59 | disposition home or self-care (01) ==
LOC: LAB 08:00
PROVIDERS: ATTEND Nurse Practitioner Family
DX: R10.9 Unspecified abdominal pain (principal); N93.9 Abnormal uterine and vaginal bleeding, unspecified; R35.0 Frequency of micturition
CPT/HCPCS: 81001; 87086

== ENCOUNTER 2023-09-17 09:15 | Outpatient (CLI) | payer BC, MEDICAID ==
[2023-09-17 12:23] LABS: BASOPHILS # (AUTO) 0.1 10^3/uL (0.0-0.1); BASOPHILS % (AUTO) 0.5 %; EOSINOPHILS # (AUTO) 0.1 10^3/uL (0.0-0.7); EOSINOPHILS % (AUTO) 0.5 %; HCT - HEMATOCRIT 38.6 % (37.0-47.0); HGB - HEMOGLOBIN 13.3 g/dL (12.0-16.0); LYMPHOCYTES # (AUTO) 1.9 10^3/uL (1.5-3.5); LYMPHOCYTES % (AUTO) 13.8 %; MEAN CORPUSCULAR HEMOGLOBIN 30.4 pg (27.0-31.0); MEAN CORPUSCULAR HGB CONC 34.5 g/dL (32.0-36.0); MEAN CORPUSCULAR VOLUME 88.3 fL (81.0-99.0); MEAN PLATELET VOLUME 9.2 fL (7.9-10.8); MONOCYTES # (AUTO) 0.6 10^3/uL (0.0-1.0); MONOCYTES % (AUTO) 4.7 %; NEUTROPHILS # (AUTO) 10.9 10^3/uL (1.5-6.6); NEUTROPHILS % (AUTO) 80.1 %; PLT - PLATELET COUNT 411 10^3/uL (130-450); RED BLOOD COUNT 4.37 10^6/uL (4.20-5.40); RED CELL DISTRIBUTION WIDTH 12.2 % (12.0-15.0); WHITE BLOOD COUNT 13.6 x10^3/uL (4.8-10.8)
[2023-09-17 12:47] LABS: ALBUMIN 4.9 g/dL (3.2-5.5); ALBUMIN/GLOBULIN RATIO 1.6 (1.0-2.2); BILIRUBIN,TOTAL 0.3 mg/dL (0.2-1.0); CALCIUM 9.8 mg/dL (8.5-10.3); CREATININE 0.6 mg/dL (0.6-1.3); POTASSIUM 4.2 mmol/L (3.5-4.5); TOTAL PROTEIN 7.9 g/dL (6.4-8.9)
[2023-09-20 15:09] LABS: GIARDIA LAMBLIA AG EIA Negative (Negative)
== END 2023-09-17 09:30 | disposition home or self-care (01) ==
LOC: LAB.N 09:15
PROVIDERS: ATTEND Physician Assistant Medical
DX: R11.2 Nausea with vomiting, unspecified (principal); R19.7 Diarrhea, unspecified
CPT/HCPCS: 36415; 80053; 82150; 83690; 85025; 87045; 87046; 87177; 87209; 87329; 87427

== ENCOUNTER 2023-10-20 16:03 | Outpatient (CLI) | payer BC, MEDICAID ==
--- NOTE | 2023-10-21 11:38 | Ultrasound Report ---
PROCEDURE: Pelvic Complete INDICATIONS: OVARIAN CYST TECHNIQUE: Real-time transabdominal scanning was performed of the pelvic organs, with image documentation. COMPARISON: Ultrasound 09/11/2022, 03/28/2022. Ultrasound 08/31/2023. FINDINGS: Uterus: Uterus is anteverted and normal in size at 7.3 x 3 x 4.4 cm. The myometrium is homogeneous. The endometrium measures 7.2 mm in combined thickness. Ovaries: The right ovary measures 3.2 x 3.6 x 4.4 cm, with a calculated ovarian volume of 26 cc. Th e left ovary measures 1.4 x 1.3 x 2 cm, with a calculated ovarian volume of 1.9 cc. The right ovarian cystic lesion measures 2.9 x 3.2 x 3.2 cm, previously 2.9 x 2.1 x 2.5 cm. The previously described s eptation is no longer apparent, and there is a fluid fluid level. Less than 12 follicles can be seen in each ovary. No adnexal masses are seen. No cystic lesions measuring greater than 3 cm. Other: No free pelvic fluid. IMPRESSION: Slight interval growth of the right ovarian cystic lesion, which has hemorrhagic features. No suspici ous features. No required follow-up in the absence of pain, per consensus guidelines. Reviewed by: Mykel Balbuena MD on 10/21/2023 11:37 AM PDT Approved by: Mykel Balbuena MD on 10/21/2023 11:37 AM PDT Station ID: [id number]
== END 2023-10-20 16:04 | disposition home or self-care (01) ==
LOC: DI 16:03
PROVIDERS: ATTEND Nurse Practitioner
DX: N83.291 Other ovarian cyst, right side (principal)

== ENCOUNTER 2024-01-24 08:00 | Outpatient (CLI) | payer BC, MEDICAID ==
[2024-01-24 20:54] LABS: CHLAMYDIA TRACHOMATIS DNA NEGATIVE (NEGATIVE); NEISSERIA GONORRHOEAE DNA NEGATIVE (NEGATIVE); TRICHOMONAS VAGINALIS DNA NEGATIVE (NEGATIVE)
== END 2024-01-24 23:59 | disposition home or self-care (01) ==
LOC: LAB.WC 08:00
PROVIDERS: ATTEND Nurse Practitioner
DX: Z11.3 Encounter for screening for infections with a predominantly sexual mode of transmission (principal)
CPT/HCPCS: 87491; 87591; 87661

== ENCOUNTER 2024-02-17 17:50 | Outpatient (CLI) | payer BC, MEDICAID ==
--- NOTE | 2024-02-18 11:29 | XRAY Report ---
PROCEDURE: Chest 2V INDICATIONS: CHEST TIGHTNESS TECHNIQUE: 2 views of the chest were acquired. COMPARISON: CXR 09/15/2018. FINDINGS: Surgical changes and devices: None. Lungs and pleura: No pleural effusions or pneumothorax. Lungs are clear. Mediastinum: Mediastinal contours appear normal. Heart size is normal. Bones and chest wall: No suspicious bony lesions. Overlying soft tissues appear unremarkable. IMPRESSION: No acute cardiopulmonary process. Reviewed by: Dg Baker MD on 02/18/2024 11:28 AM PDT Approved by: Dg Baker MD on 02/18/2024 11:28 AM PDT Station ID: [id number]
== END 2024-02-17 17:51 | disposition home or self-care (01) ==
LOC: DI 17:50
PROVIDERS: ATTEND Physician Assistant Medical
DX: R07.89 Other chest pain (principal)